=== PATIENT | male | born 1950 | race Caucasian/White ===

== ENCOUNTER 2019-07-25 18:01 | Inpatient (IN) | payer MEDICARE ==
[~2019-07-25] VITALS: Ht 177.8 cm; Wt 198.0 kg
--- NOTE | 2019-07-25 21:40 | NUR ---
PT ARRIVED TO UNIT. TRANSFERRED TO ICU BED. HOOKED UP TO MONITOR. VSS. WILL CONTINUE TO MONITOR
[2019-07-25 22:00] VITALS: BP 163/87
[2019-07-25] MEDS ORDERED: TOPROL XL25 MG PO (22:22)
[2019-07-25] MEDS ORDERED: ZOCOR20 MG PO (22:28)
[2019-07-25] MEDS ORDERED: TRUSOPT 2 % OPT10 ML OP (22:30)
[2019-07-25] MEDS ORDERED: LOSARTAN/HCT TAB 100 PO (22:36)
[2019-07-25] MEDS ORDERED: XALATAN 0.0052.5 ML EACH EYE (22:39)
[2019-07-25] MEDS ORDERED: BETAGAN 0.5% OPH5 ML EACH EYE (22:41)
[2019-07-25] MEDS ORDERED: COMBIGAN OPHT DR5 ML EACH EYE (22:42)
[2019-07-25 23:00] VITALS: BP 145/82
--- NOTE | 2019-07-25 23:00 | NUR ---
PT RESTING IN BED. ADMISSION ASSESSMENT IN PROGRESS. VSS. RECEIVING INFORMATION FROM PT SPOUSE. WILL CONTINUE TO MONITOR
[2019-07-25 23:55] VITALS: BP 168/85; BMI 62.9
[2019-07-26] VITALS (25 sets, daily range): BP systolic 116–188; BP diastolic 48–111; Ht 177.8 cm; Wt 198.0 kg
--- NOTE | 2019-07-26 01:00 | NUR ---
PT RESTING IN BED. NO SIGNS OF DISTRESS NOTED AT THIS TIME. VSS. WILL CONTINUE TO MONITOR
[2019-07-26 02:52] LABS: APPEARANCE CLEAR (CLEAR); BILIRUBIN NEGATIVE (NEGATIVE); COLOR YELLOW (YELLOW); GLUCOSE NEGATIVE (NEGATIVE); KETONE NEGATIVE (NEGATIVE); NITRITE NEGATIVE (NEGATIVE); PROTEIN 1+ mg/dL (NEGATIVE); SPECIFIC GRAVITY 1.015 (1.005-1.020)
[2019-07-26 02:57] LABS: BACTERIA NONE SEEN /hpf (NEGATIVE); EPITHELIAL CELLS 0-5 /hpf (0-5); WHITE CELLS - URINE 0-5 /hpf (NEGATIVE)
--- NOTE | 2019-07-26 03:00 | NUR ---
PT RESTING IN BED. VSS. REASSESSMENT COMPLETED. NO SIGNS OF DISTRESS NOTED. WILL CONTINUE TO MONITOR
[2019-07-26 04:17] LABS: BASOPHILS 0.1 % (0-2); HEMATOCRIT 49.7 % (42.0-54.0); HEMOGLOBIN 16.7 g/dL (13.5-17.5); IMMATURE GRANULOCYTES 0.5 % (0-5); MCH 31.5 pg (26.0-34.0); MCHC 33.6 g/dL (31.0-37.0); MCV 93.8 fL (80.0-100.0); MEAN PLATELET VOLUME 12.4 fL (7.4-10.4); MONOCYTES 12.3 % (2-11); NEUTROPHILS 50.1 % (40-80); PLATELET COUNT 127 10x3/uL (130-400); RDW 15.8 % (11.5-14.5); WBC 15.3 10x3/uL (4.8-10.8)
[2019-07-26 04:42] LABS: APTT 27.3 SECONDS (22.8-39.4); INR 1.08 (0.85-1.17); PROTIME 13.5 SECONDS (11.6-15.0)
--- NOTE | 2019-07-26 05:00 | NUR ---
PT RESTING IN BED. CHG BATH GIVEN. PT TOLERATED WELL. VSS. WILL CONTINUE TO MONITOR
[2019-07-26 05:19] LABS: CALC OSMOLALITY 270 mosm/kg (275-300); CHLORIDE - SERUM 90 mmol/L (98-107); CREATININE - SERUM 0.8 mg/dL (0.6-1.3); GLUCOSE 118 mg/dL (74-106); PHOSPHOROUS 5.3 mg/dL (2.5-4.9); POTASSIUM - SERUM 3.5 mmol/L (3.5-5.1); SODIUM 133 mmol/L (136-145); UREA NITROGEN 25 mg/dL (7-18); eGFR NON AFRICAN AMERICAN > 90 mL/min (90-120)
[2019-07-26 05:20] LABS: ALBUMIN 2.6 g/dL (3.4-5.0); ALKALINE PHOSPHATASE 78 U/L (46-116); ALT (SGPT) 18 U/L (10-68); BILIRUBIN - TOTAL 0.83 mg/dL (0.2-1.3); CALCIUM 7.8 mg/dL (8.5-10.1); PRO BNP 318 pg/mL (0-125); PROTEIN - SERUM 5.5 g/dL (6.4-8.2)
--- NOTE | 2019-07-26 07:15 | NUR ---
REPORT RECEIVED. ASSESSMENT COMPLETE PER FLOW SHEET. VSS NO NEW CHANGES WILL CONTINUE TO MONITOR
--- NOTE | 2019-07-26 13:21 | NUR ---
BARIACTRIC BED ORDERED AND RECEIVED. 07/26/19
[2019-07-26 14:37] LABS: EOS BF 18 %; MACROPHAGES BF 7 %; NEUT - BF 67 %
[2019-07-26 14:39] LABS: EOS BF 18 %; MACROPHAGES BF 9 %; NEUT - BF 66 %
--- NOTE | 2019-07-26 15:00 | NUR ---
REASSESSMENT COMPLETE PER FLOW SHEET. VSS. NO NEW CHANGES WILL CONTINUE TO MONITOR
[2019-07-26 15:01] LABS: CKMB 2.2 U/L (0.0-3.6); CREATINE KINASE 268 UL (21-232)
[2019-07-26 15:04] LABS: TROPONIN-I < 0.017 ng/mL (0.000-0.060)
[2019-07-26 17:23] LABS: CKMB 2.3 U/L (0.0-3.6); CREATINE KINASE 235 UL (21-232); TROPONIN-I 0.023 ng/mL (0.000-0.060)
--- NOTE | 2019-07-26 19:00 | NUR ---
SHIFT ASSESSMENT COMPLETE. PT IS SEDATED ON VENT. ETT SECURED. NGT R NARE, CLAMPED. ETT SIZE 8.0, 24 CM AT THE LIP. VENT SETTINGS: A/C RATE OF 18, TIDAL VOLUME 500, FIO2 60%, PEEP 5.0, O2 SAT 97-99%. COPIOUS AMOUNTS OF CLEAR SECRETIONS SUCTIONED VIA INLINE AND ORAL. CRACKLES HEARD BILAT THROUGHOUT ALL LOBES. S1S2 AUDIBLE, NSR SHOWING ON MONITOR. R UPPER ARM PICC INFUSING PROPOFOL @ 45 MCG/KG/MIN AND NS @ KVO+ABX. RADIAL AND PEDAL PULSES PALP. ABD LARGE, BS HYPOACTIVE X4. TREVIÑO CATH INTACT DRAINING SERENA URINE. BILAT LOWER EXT HAVE DISCOLORATION, SWELLING, DRY/CRACKING SKIN. PEDAL PULSES WEAK. RADIAL PULSES PALP. HE IS UNABLE TO FOLLOW COMMANDS, BUT HE DOES LOCALIZE PAIN. ORAL CARE PROVIDED VIA RT. NO FURTHER FINDINGS AT THIS TIME. SEE FLOWSHEET FOR FURTHER DETAILS. WILL CONT WITH POC.
--- NOTE | 2019-07-26 21:00 | NUR ---
DAUGHTER AT BEDSIDE. ETT HAS CUFF LEAK. RIKI, RT AT BEDSIDE. CUFF LEAK FIXED, O2 SAT WNL. ALL QUESTIONS/CONCERNS ANSWERED. NO FURTHER NEEDS AT THIS TIME. WILL CONT TO MONITOR CLOSELY.
--- NOTE | 2019-07-26 23:00 | NUR ---
REASSESSMENT COMPLETE. UA COLLECTED AND SENT TO LAB. REPOSITIONED FOR COMFORT. ORAL CARE PROVIDED. NO CHANGES FROM PREVIOUS ASSESSMENT. SEE FLOWSHEET FOR FURTHER DETAILS. VSS. WILL CONT TO MONITOR.
[2019-07-26 23:06] LABS: CKMB 1.4 U/L (0.0-3.6); CREATINE KINASE 203 UL (21-232); TROPONIN-I 0.019 ng/mL (0.000-0.060)
[2019-07-27] VITALS (24 sets, daily range): BP systolic 102–153; BP diastolic 43–77
--- NOTE | 2019-07-27 | NUR ---
TREVIÑO CARE PROVIDED PER PROTOCOL.
--- NOTE | 2019-07-27 01:00 | NUR ---
REPOSITIONED FOR COMFORT. VSS. ORAL CARE PROVIDED. NO ACUTE CHANGES IN PT CONDITION.
--- NOTE | 2019-07-27 03:00 | NUR ---
REASSESSMENT COMPLETE. NO CHANGES FROM PREVIOUS ASSESSMENT. SEE FLOWSHEET FOR FURTHER DETAILS. VSS. WILL CONT CLOSE MONITORING IN ICU.
--- NOTE | 2019-07-27 05:00 | NUR ---
CHG BED BATH AND LINEN CHANGE PROVIDED. PT TOLERATED WELL. VSS. ORAL CARE PROVIDED. TREVIÑO CARE PROVIDED.
--- NOTE | 2019-07-27 05:47 | NUR ---
PT'S HR DECREASED TO 54 BPM, SINUS IMELDA, BP WNL. SEDATION VACATION STARTED. WILL CONT CLOSE MONITORING.
--- NOTE | 2019-07-27 07:00 | NUR ---
REPORT RECEIVED. ASSESSMENT COMPLETE PER FLOW SHEET. VSS. ORAL ENDOTRACH CARE ADM. WILL CONTINUE TO MONITOR
[2019-07-27 07:14] LABS: BASOPHILS 0.2 % (0-2); EOSINOPHILS 1.6 % (0-7); HEMATOCRIT 48.7 % (42.0-54.0); HEMOGLOBIN 15.8 g/dL (13.5-17.5); IMMATURE GRANULOCYTES 0.3 % (0-5); MCH 30.9 pg (26.0-34.0); MCHC 32.4 g/dL (31.0-37.0); MCV 95.3 fL (80.0-100.0); MEAN PLATELET VOLUME 12.2 fL (7.4-10.4); MONOCYTES 10.5 % (2-11); NEUTROPHILS 48.4 % (40-80); PLATELET COUNT 135 10x3/uL (130-400); RBC 5.11 10x6/uL (4.20-6.10); RDW 15.7 % (11.5-14.5)
[2019-07-27 08:10] LABS: CALC OSMOLALITY 283 mosm/kg (275-300); CARBON DIOXIDE 34.9 mmol/L (21.0-32.0); CHLORIDE - SERUM 94 mmol/L (98-107); CREATININE - SERUM 0.9 mg/dL (0.6-1.3); GLUCOSE 158 mg/dL (74-106); SODIUM 138 mmol/L (136-145); UREA NITROGEN 26 mg/dL (7-18); eGFR NON AFRICAN AMERICAN 89 mL/min (90-120)
[2019-07-27 08:11] LABS: ALBUMIN 2.4 g/dL (3.4-5.0); ALKALINE PHOSPHATASE 79 U/L (46-116); ALT (SGPT) 16 U/L (10-68); BILIRUBIN - TOTAL 0.92 mg/dL (0.2-1.3); CALCIUM 7.6 mg/dL (8.5-10.1); PROTEIN - SERUM 5.5 g/dL (6.4-8.2)
[2019-07-27 08:12] LABS: POTASSIUM - SERUM 2.9 mmol/L (3.5-5.1)
[2019-07-27 08:13] LABS: MAGNESIUM - SERUM 2.2 mg/dL (1.8-2.4)
--- NOTE | 2019-07-27 09:10 | NUR ---
DR LUJAN AT BEDSIDE. CPAP TRAIL ADM.
--- NOTE | 2019-07-27 11:00 | NUR ---
REASSESSMENT COMPLETE PER FLOW SHEET. VSS. FAMILY AT BEDSIDE. DENIES NEEDS WILL CONTINUE TOMONITOR
--- NOTE | 2019-07-27 13:34 | NUR ---
FAMILY AT BEDSIDE. ORAL CARE ADM. DENIES NEEDS WILL CONTINUE TOMONITOR
--- NOTE | 2019-07-27 15:31 | NUR ---
RE-ASSESSMENT COMPLETED PER FLOW FLOW. PATIENT RESTING COMFORTABLY. WILL CONT TO MONITOR
[2019-07-27 16:08] LABS: ACID FAST SMEAR Negative (()); AFB SPECIMEN PROCESSING Concentration (())
[2019-07-27 16:08] LABS: ACID FAST SMEAR Negative (()); AFB SPECIMEN PROCESSING Concentration (())
--- NOTE | 2019-07-27 19:00 | NUR ---
SHIFT ASSESSMENT COMPLETE. PT IS ABLE TO FOLLOW COMMANDS, SPEECH GARBLED AND HE IS LETHARGIC. HE STATES THAT HE KNOWS WHY HE IS HERE, BUT IS UNABLE TO EXPLAIN THE SITUATION. REORIENTED AND EXPLAINED TO HIM WHERE HE IS AND WHY HE IS HERE. PERRLA, 3 MM, BRISK REACTIO TO LIGHT. WEAK BUT EQUAL HAND MILL SET UP AND FOOT PUMPS. RR SHALLOW, BIPAP ON, 12/6, FIO2 60%. CRACKLES HEARD BILAT THROUGHOUT ALL LOBES. S1S2 AUDIBLE, HR 88 NSR SHOWING ON MONITOR. R UPPER ARM PICC INFUSING NS @ KVO+ABX. L UPPER ARM PIV S/L. ABD LARGE AND SOFT, BS HYPOACTIVE X4. TREVIÑO CATH INTACT DRAINING SERENA URINE. +1 PITTING EDEMA IN UPPER AND LOWER EXT. SKIN IS SCALY, B/L LOWER EXT HAVE DISCOLORATION, SCABS/SORES. ORAL CARE PROVIDED, O2 SAT DECREASED TO 85%. BIPAP BACK ON, O2 SAT 94-97%. RADIAL AND PEDAL PULSES PALP. NO FURTHER FINDINGS AT THIS TIME. WILL CONT TO MONITOR CLOSELY IN ICU.
--- NOTE | 2019-07-27 19:02 | MORECARE ---
CASE MANAGEMENT DISCHARGE SUMMARY PATIENT: DALLAS MACIEL UNIT: [id number] ADM DATE: 07/25/19 AGE: 68 : 51 SEX: M ROOM/BED: D.2307 AUTHOR: CED PASCUAL PHYSICIAN: REFERRING PHYSICIAN: VIOLETA CARVALHO MD DATE OF SERVICE: 07/27/19 Discharge Plan Patient Name: DALLAS MACIEL [facility] [facility] 1950 Planned Disposition: Home Anticipated Discharge Date: Discharge Date: Expected LOS: Initial Reviewer: [email or web address] Initial Review Date: 07/27/2019 Generated: 07/27/19 8:02 pm Patient Name: DALLAS MACIEL Page [phone] at 1902 All edits/amendments must be made on the electronic document DICTATION DATE: 07/27/191901 REGULATORY PROCESS MANAGER: GARRETT 07/27/191901 RPT#: [id number] DC DATE: STATUS: ADM IN [facility] [address] [place] [address] END OF REPORT
--- NOTE | 2019-07-27 19:10 | MORECARE ---
CASE MANAGEMENT DISCHARGE SUMMARY PATIENT: DALLAS MACIEL UNIT: [id number] ADM DATE: 07/25/19 AGE: 68 : 51 SEX: M ROOM/BED: D.2307 AUTHOR: CED PASCUAL PHYSICIAN: REFERRING PHYSICIAN: VIOLETA CARVALHO MD DATE OF SERVICE: 07/27/19 Discharge Plan Patient Name: DALLAS MACIEL [facility] [facility] 1950 Planned Disposition: Home Anticipated Discharge Date: Discharge Date: Expected LOS: Initial Reviewer: [email or web address] Initial Review Date: 07/27/2019 Generated: 07/27/19 8:10 pm DCPIA - Discharge Planning Initial Assessment Updated by [id number]: Diane Wilson on 07/27/19 7:05 pm * How many steps to enter\exit or inside your home? ramp * PCP Dexter John * [facility] * Preadmission Environment Home with Family * ADLs Partial Dependent * Partial ADLs (Assistance needed) Ambulation Bathing Dressing Eating Medication Management Toileting Transfers * Other Equipment HOME 02 - [facility] HOME PATIENT ELECTRIC W/C, SHOWER CHAIR -(CAN'T FIT IN SHOWER) * List name and contact numbers for known caregivers / representatives who currently or will assist patient after discharge: DARIUSZ MACIEL- SPOUSE- [phone] * Verbal permission to speak to the caregivers and representatives has been obtained from the patient. N/A * Community resources currently utilized None * Additional services required to return to the preadmission environment? No * Can the patient safely return to the preadmission environment? Yes * Has this patient been hospitalized within the prior 30 days at any hospital? No Last DP export: 07/27/19 6:02 Patient Name: DALLAS MACIEL Page [phone] at 1910 All edits/amendments must be made on the electronic document DICTATION DATE: 07/27/191909 SUPERVISOR CONCRETE BLOCK PLANT: GARRETT 07/27/191909 RPT#: [id number] DC DATE: STATUS: ADM IN [facility] [address] [place] [address] END OF REPORT
--- NOTE | 2019-07-27 19:17 | MORECARE ---
CASE MANAGEMENT DISCHARGE SUMMARY PATIENT: DALLAS MACIEL UNIT: [id number] ADM DATE: 07/25/19 AGE: 68 : 51 SEX: M ROOM/BED: D.2307 AUTHOR: ANKUR,DOC PHYSICIAN: REFERRING PHYSICIAN: VIOLETA CARVALHO MD DATE OF SERVICE: 07/27/19 Discharge Plan Patient Name: DALLAS MACIEL Facility: [facility]:[place] : 1950 Planned Disposition: Home Anticipated Discharge Date: Discharge Date: Expected LOS: Initial Reviewer: [email or web address] Initial Review Date: 07/27/2019 Generated: 07/27/19 8:16 pm Comments DCP- Discharge Planning Updated by [id number]: Diane Wilson on 07/27/19 6:[address] Patient Name: DALLAS MACIEL Admission Status: Elective Accout number: [id number] Admission Date: 07-25-2019 : 1950 Admission Diagnosis: Attending: VIOLETA CARVALHO Current LOS: 2 Anticipated DC Date: Planned Disposition: Home Primary Insurance: [facility] [employer]IONS Discharge Planning Comments: CM met with patient and Dariusz at bedside after explaining CM role and obtaining verbal consent. Patient recently extubated today would only answer questions by nodding. Patient lives at home with his Dariusz where he is partially dependent with his care and plans to return there upon discharge. Patient feels this would be a safe discharge. CM discussed availability / needs of home health and medical equipment. Dariusz states that patient has Home 02 with [facility]. Dariusz did mention that it is getting harder to take care of him at home. CM spoke to her regarding physical therapy evaluation and the possibility of rehab v/s HH. Patient denies any discharge needs at this time. CM will continue to follow and assist as needed with discharge planning / needs. Drive In Theater Attendant: Diane Wilson DCPIA - Discharge Planning Initial Assessment Updated by [id number]: Diane Wilson on 07/27/19 7:05 pm * How many steps to enter\exit or inside your home? ramp * PCP Dexter John * [facility] * Preadmission Environment Home with Family * ADLs Partial Dependent * Partial ADLs (Assistance needed) Ambulation Bathing Dressing Eating Medication Management Toileting Transfers * Other Equipment HOME 02 - [facility] PAT[facility] ELECTRIC W/C, SHOWER CHAIR -(CAN'T FIT IN SHOWER) * List name and contact numbers for known caregivers / representatives who currently or will assist patient after discharge: DARIUSZ MACIEL- SPOUSE- [phone] * Verbal permission to speak to the caregivers and representatives has been obtained from the patient. N/A * Community resources currently utilized None * Additional services required to return to the preadmission environment? No * Can the patient safely return to the preadmission environment? Yes * Has this patient been hospitalized within the prior 30 days at any hospital? No Last DP export: 07/27/19 6:10 Patient Name: DALLAS MACIEL Page [phone] at 1917 All edits/amendments must be made on the electronic document DICTATION DATE: 07/27/191915 RESOURCE CONSERVATIONIST: GARRETT 07/27/191915 RPT#: [id number] DC DATE: STATUS: ADM IN [facility] [address] [place] [address] END OF REPORT
--- NOTE | 2019-07-27 20:18 | NUR ---
LABS REVIEWED, POTASSIUM 2.9 FROM AM LAB. NO RECHECK AFTER ELECTROLYTE PROTOCOL. WILL RECHECK AT 2030 TO ASSESS POTASSIUM VALUE PER PROTOCOL.
--- NOTE | 2019-07-27 21:00 | NUR ---
FAMILY AT BEDSIDE. PLACED PT ON HIGH FLOW NC @ 12 L/MIN SO HE COULD DISCUSS HIS WISHES WITH HIS FAMILY. O2 SAT STAYING WNL. ALL QUESTIONS ANSWERED. WILL CONT TO MONITOR.
--- NOTE | 2019-07-27 23:00 | NUR ---
REASSESSMENT COMPLETE. ORAL CARE PROVIDED. VSS. BIPAP ON. REPOSITIONED FOR COMFORT. NO NEW FINDINGS AT THIS TIME. SEE FLOWSHEET FOR FURTHER DETAILS. WILL CONT TO MONITOR CLOSELY.
[2019-07-28] VITALS (15 sets, daily range): BP systolic 93–141; BP diastolic 57–91
--- NOTE | 2019-07-28 01:00 | NUR ---
REMOVED BIPAP, ON HFNC @ 10L/MIN. A&O X4. HE STATED THAT HE DID NOT WANT TO BE INTUBATED IF HE WERE TO CODE. HE STATED, "I DON'T WANT TO LIVE LIKE THIS." ENCOURAGED HIM TO EXPRESS HIS WISHES TO HIS FAMILY AND THAT I WOULD REPORT THIS INFORMATION TO AM NURSING STAFF/INTERDISCIPLINARY TEAM. ORAL CARE PROVIDED. CALL LIGHT IN REACH, RESPOSITIONED FOR COMFORT. NO FURTHER NEEDS AT THIS TIME. WILL CONT WITH POC.
--- NOTE | 2019-07-28 03:00 | NUR ---
CHG BED BATH AND COMPLETE LINEN CHANGE PROVIDED. PT TOLERATED WELL. REMOVED BIPAP, PLACED HIGH FLOW NC ON @ 7L/MIN. O2 SAT 94-98%. YAUNKER IN HAND. CALL LIGHT IN REACH. ORAL CARE PROVIDED. REASSESSMENT COMPLETE. NO ACUTE CHANGES. WILL CONT WITH POC. SEE FLOWSHEET FOR FURTHER DETAILS.
--- NOTE | 2019-07-28 05:00 | NUR ---
AT BEDSIDE. PT IS ON HFNC @ 5L/MIN. O2 SAT >94%, RR EVEN AND UNLABORED. REPOSITIONED FOR COMFORT. ORAL CARE PROVIDED. NO FURTHER NEEDS AT THIS TIME. WILL CONT WITH POC.
[2019-07-28 05:09] LABS: BASOPHILS 0.3 % (0-2); EOSINOPHILS 1.5 % (0-7); HEMATOCRIT 51.9 % (42.0-54.0); HEMOGLOBIN 16.2 g/dL (13.5-17.5); IMMATURE GRANULOCYTES 0.3 % (0-5); LYMPHOCYTES 41.1 % (15-50); MCH 30.3 pg (26.0-34.0); MCHC 31.2 g/dL (31.0-37.0); MEAN PLATELET VOLUME 11.6 fL (7.4-10.4); MONOCYTES 10.7 % (2-11); NEUTROPHILS 46.1 % (40-80); PLATELET COUNT 147 10x3/uL (130-400); RBC 5.35 10x6/uL (4.20-6.10); RDW 15.5 % (11.5-14.5); WBC 14.3 10x3/uL (4.8-10.8)
[2019-07-28 05:44] LABS: ALBUMIN 2.5 g/dL (3.4-5.0); ALKALINE PHOSPHATASE 87 U/L (46-116); BILIRUBIN - TOTAL 2.24 mg/dL (0.2-1.3); CALC OSMOLALITY 293 mosm/kg (275-300); CALCIUM 9.1 mg/dL (8.5-10.1); CARBON DIOXIDE 39.4 mmol/L (21.0-32.0); CHLORIDE - SERUM 101 mmol/L (98-107); GLUCOSE 112 mg/dL (74-106); MAGNESIUM - SERUM 2.3 mg/dL (1.8-2.4); PHOSPHOROUS 3.4 mg/dL (2.5-4.9); SODIUM 145 mmol/L (136-145); UREA NITROGEN 25 mg/dL (7-18); eGFR NON AFRICAN AMERICAN 79 mL/min (90-120)
[2019-07-28 05:45] LABS: ALT (SGPT) 22 U/L (10-68); POTASSIUM - SERUM 2.9 mmol/L (3.5-5.1); PROTEIN - SERUM 7.2 g/dL (6.4-8.2)
--- NOTE | 2019-07-28 06:25 | NUR ---
PLACED PT BACK ON BIPAP. NO FURTHER NEEDS AT THIS TIME. VSS. WILL CONT WITH POC.
--- NOTE | 2019-07-28 07:15 | NUR ---
REPORT RECEIVED. PT ON BIPAP. HAS A TREVIÑO. HAS A RIGHT PICC. LOW POTASSIUM THIS MORNING. NOW BEING REPLACED PER ELECTROLYE PROTOCOL. PT ALERT. SLOW TO RESPOND. HEAD TO TOE ASSESSMENT COMPLETED. VSS. WILL CONTINUE TO MONITOR.
--- NOTE | 2019-07-28 08:23 | NUR ---
PT REPOSITIONED IN BED WITH HELP OF BED WELL. TURNED TO LEFT SIDE. AT BEDSIDE. ON O2 VIA HIGH FLOW CANNULA AT 6L. 94%. WILL CONTINUE TO MONITOR.
--- NOTE | 2019-07-28 09:31 | NUR ---
Nutrition follow-up: Pt extubated 07/27 Remains NPO until clear by speech evaluation - ordered for today Labs reviewed Wt: 436# Pt still with breathing difficulty RDN following.
--- NOTE | 2019-07-28 09:40 | NUR ---
DR LUJAN ROUNDED. WANTS PT'S HOB AT 45 DEGREES AND FOR PT TO START USING IS. TAKEN TO PT AT THIS TIME AND INSTRUCTED ON HOW TO USE. ENCOURAGED TO USE DURING EVERY COMMERCIAL WHILE AWAKE. VERBALIZED UNDERSTANDING. DEMONSTRATED PROPER USE. VSS. WILL CONTINUE TO MONITOR.
--- NOTE | 2019-07-28 11:30 | NUR ---
PT REPOSITIONED IN BED. LUNCH DELIVERED. PT WANTED TO COME BACK AND ASSIST HIM WITH HIS LUNCH. WILL CONTINUE TO MONITOR.
--- NOTE | 2019-07-28 13:45 | NUR ---
PT RESTING QUIETLY. REPOSITIONED IN BED PER DELMI BED/AIR MATTRESS. VSS. WILL CONTINUE TO MONITOR.
--- NOTE | 2019-07-28 14:50 | NUR ---
REPORT CALLED TO JUN ON [id number]. PT GOING TO ROOM 2201.
--- NOTE | 2019-07-28 19:00 | NUR ---
BEDSIDE REPORT RECEIVED AND CARE OF PT ASSUMED. PT LYING IN SEMI SILVER'S POSITION ON [facility] BED. FAMILY MEMBERS ARE AT BEDSIDE. RIGHT PICC LINE PATENT WITH NS INFUSING AT KVO. O2 IN USE 6L HI FLOW NASAL CANNULA. WILL MONITOR FOR NEEDS.
--- NOTE | 2019-07-28 20:56 | NUR ---
HS MEDICATIONS GIVEN. SPACED EYE DROPS OUT 5 MINS APART. GAVE TYLENOL PO FOR C/O LEG PAIN.
--- NOTE | 2019-07-28 23:57 | NUR ---
CALLED RT PER FAMILY REQUEST PT THINKS BIPAP SETTINGS ARE "TOO HIGH". RT TO COME AND SPEAK TO PT TO EXPLAIN THAT SETTINGS WILL NOT BE CHANGED.
[2019-07-29 01:00] VITALS: BP 136/54
[2019-07-29 05:00] VITALS: BP 145/60
[2019-07-29 05:19] LABS: BASOPHILS 0.2 % (0-2); EOSINOPHILS 1.2 % (0-7); HEMATOCRIT 49.8 % (42.0-54.0); HEMOGLOBIN 15.4 g/dL (13.5-17.5); IMMATURE GRANULOCYTES 0.3 % (0-5); LYMPHOCYTES 37.8 % (15-50); MCH 30.3 pg (26.0-34.0); MCHC 30.9 g/dL (31.0-37.0); MCV 97.8 fL (80.0-100.0); MONOCYTES 10.5 % (2-11); PLATELET COUNT 160 10x3/uL (130-400); RBC 5.09 10x6/uL (4.20-6.10); RDW 15.1 % (11.5-14.5); WBC 15.8 10x3/uL (4.8-10.8)
[2019-07-29 05:42] LABS: ALBUMIN 2.3 g/dL (3.4-5.0); ALKALINE PHOSPHATASE 84 U/L (46-116); CALC OSMOLALITY 286 mosm/kg (275-300); CALCIUM 8.9 mg/dL (8.5-10.1); CHLORIDE - SERUM 101 mmol/L (98-107); CREATININE - SERUM 0.9 mg/dL (0.6-1.3); GLUCOSE 120 mg/dL (74-106); MAGNESIUM - SERUM 2.2 mg/dL (1.8-2.4); PHOSPHOROUS 3.7 mg/dL (2.5-4.9); PROTEIN - SERUM 6.9 g/dL (6.4-8.2); SODIUM 141 mmol/L (136-145); UREA NITROGEN 27 mg/dL (7-18); eGFR NON AFRICAN AMERICAN 89 mL/min (90-120)
[2019-07-29 05:57] LABS: ALT (SGPT) 32 U/L (10-68); CARBON DIOXIDE 42.8 mmol/L (21.0-32.0)
--- NOTE | 2019-07-29 07:30 | NUR ---
PT RESTING IN BED WITH BIPAP IN PLACE. PT VOICES WISHES TO REMOVE BIPAP AT THIS TIME. EDUCATED PT REGARDING NECESITTY OF BIPAP, PT IS RESISTIVE BUT DOES VOICE WILLINGNESS TO LEAVE BIPAP IN PLACE FOR THE TIME. PICC LINE INTACT TO RIGHT UPPER ARM WITH NS @ KVO INFUSING VIA PUMP. SITE WITHOUT REDNESS OR EDEMA. DENIES PAIN AT THIS TIME. FAMILY AT BEDSIDE. DENIES FURTHER NEEDS AT THIS TIME. CL WITHIN REACH. ENCOURAGED TO CALL WITH NEEDS. CONTINUE POC
[2019-07-29 08:45] VITALS: BP 133/68
[2019-07-29 12:27] LABS: APPEARANCE HAZY (CLEAR); BILIRUBIN NEGATIVE (NEGATIVE); COLOR DK YELLOW (YELLOW); GLUCOSE NEGATIVE (NEGATIVE); KETONE NEGATIVE (NEGATIVE); NITRITE NEGATIVE (NEGATIVE); PROTEIN 1+ mg/dL (NEGATIVE)
[2019-07-29 12:28] LABS: BACTERIA FEW /hpf (NEGATIVE); EPITHELIAL CELLS 0-5 /hpf (0-5); WHITE CELLS - URINE 0-5 /hpf (NEGATIVE)
[2019-07-29 12:29] LABS: MUCUS <1+ /lpf (NONE SEEN)
[2019-07-29 12:43] VITALS: BP 133/70
[2019-07-29 16:45] VITALS: BP 147/75
--- NOTE | 2019-07-29 19:00 | NUR ---
BEDSIDE REPORT RECEIVED AND CARE OF PT ASSUMED. PT LYING IN LOW SILVER'S POSITION WITH BIPAP IN PLACE. FAMILY MEMBERS ARE AT BEDSIDE.
[2019-07-29 20:01] VITALS: BP 134/68
--- NOTE | 2019-07-29 20:32 | NUR ---
HS MEDICATIONS GIVEN. WILL CONTINUE TO MONITOR FOR NEEDS.
--- NOTE | 2019-07-29 22:40 | NUR ---
PT TOOK OFF O2...O2 SATS IN THE 60'S. REPLACED O2 AND NOTIFIED RT. RT HERE AND PLACED BIPAP BACK ON PT. SPO2 95% AT THIS TIME.
--- NOTE | 2019-07-29 22:51 | NUR ---
ASSISTED PT TO USE BEDPAN...3 PERSON ASSIST, TO HAVE LOOSE BM. POSITIONED FOR COMFORT.
[2019-07-30] VITALS: BP 146/47
[2019-07-30 04:00] VITALS: BP 175/69
[2019-07-30 05:32] LABS: BASOPHILS 0.4 % (0-2); EOSINOPHILS 1.8 % (0-7); HEMATOCRIT 49.7 % (42.0-54.0); HEMOGLOBIN 15.5 g/dL (13.5-17.5); IMMATURE GRANULOCYTES 0.5 % (0-5); LYMPHOCYTES 38.6 % (15-50); MCH 30.3 pg (26.0-34.0); MCHC 31.2 g/dL (31.0-37.0); MCV 97.1 fL (80.0-100.0); MEAN PLATELET VOLUME 11.1 fL (7.4-10.4); NEUTROPHILS 49.7 % (40-80); PLATELET COUNT 188 10x3/uL (130-400); RBC 5.12 10x6/uL (4.20-6.10); RDW 14.9 % (11.5-14.5); WBC 15.7 10x3/uL (4.8-10.8)
[2019-07-30 05:58] LABS: ALBUMIN 2.3 g/dL (3.4-5.0); ALKALINE PHOSPHATASE 85 U/L (46-116); BILIRUBIN - TOTAL 3.04 mg/dL (0.2-1.3); CALC OSMOLALITY 289 mosm/kg (275-300); CHLORIDE - SERUM 100 mmol/L (98-107); GLUCOSE 113 mg/dL (74-106); MAGNESIUM - SERUM 2.2 mg/dL (1.8-2.4); PHOSPHOROUS 3.7 mg/dL (2.5-4.9); SODIUM 143 mmol/L (136-145); UREA NITROGEN 25 mg/dL (7-18); eGFR NON AFRICAN AMERICAN 79 mL/min (90-120)
[2019-07-30 06:10] LABS: POTASSIUM - SERUM 3.5 mmol/L (3.5-5.1)
[2019-07-30 06:13] LABS: ALT (SGPT) 45 U/L (10-68); CARBON DIOXIDE 41.2 mmol/L (21.0-32.0)
[2019-07-30 07:59] VITALS: BP 141/56
--- NOTE | 2019-07-30 12:07 | NUR ---
OT NOTE: PT DOING MUCH BETTER TODAY. ALERT AND ORIENTED. EXPLAINED WHAT WE WOULD BE DOING IN THERAPY AND PT AGREEABLE. BED MOB WITH MOD ASSIST X 2; ABLE TO SIT ON EOB WITH MIN ASSIST/SBA. UE/LE AROM EXS. LIMITED SHOULDER MOVEMENT DUE WEAKNESS. MAX ASSIST TO CARLOS SOCKS; MOD ASSIST TO CARLOS GOWN. PERFORMED SIT TO STAND X 3 TRIALS WITH MOD ASSIST AND USE OF RW FOR UE SUPPORT. PT UNABLE TO STAND ALL THE WAY UP DUE TO UE WEAKNESS. UNABLE TO AMBULATE AT THIS TIME; MAX ASSIST FOR SIT TO SUPINE; MAX ASSIST TO REPOSITION. DISCUSSED REHAB OPTION WITH PT AND ; PT IS VERY DECONDITIONED AND WOULD BENEFIT GREATLY FROM IP REHAB PRIOR TO DC HOME. WILL BE UNABLE TO CARE FOR HIM AT THIS TIME. OTIS CH, OTR/L
[2019-07-30 12:42] VITALS: BP 135/80
[2019-07-30 13:09] LABS: FUNGUS STAIN Final report (())
[2019-07-30 13:09] LABS: FUNGUS STAIN Final report (())
[2019-07-30 17:32] VITALS: BP 145/60
--- NOTE | 2019-07-30 19:00 | NUR ---
BEDSIDE REPORT RECEIVED AND CARE OF PT ASSUMED. PT LYING IN SUPINE POSITION ON A DELMI MAX AIRBED, WITH BIPAP IN PLACE. RIGHT PICC LINE PATENT WITH NS INFUSING AT KVO. FAMILY MEMBERS ARE AT BEDSIDE. WILL MONITOR FOR NEEDS.
[2019-07-30 20:00] VITALS: BP 171/72
--- NOTE | 2019-07-30 20:07 | NUR ---
HS MEDICATIONS GIVEN. WILL CONTINUE TO MONITOR FOR NEEDS.
--- NOTE | 2019-07-30 20:20 | NUR ---
GAVE ZOFRAN IVP PER REQUEST FOR NAUSEA.
[2019-07-31] VITALS: BP 141/60
[2019-07-31 04:00] VITALS: BP 127/61
[2019-07-31 05:56] LABS: BASOPHILS 0.4 % (0-2); EOSINOPHILS 2.1 % (0-7); HEMATOCRIT 50.6 % (42.0-54.0); HEMOGLOBIN 15.5 g/dL (13.5-17.5); IMMATURE GRANULOCYTES 0.3 % (0-5); LYMPHOCYTES 39.8 % (15-50); MCH 30.3 pg (26.0-34.0); MCHC 30.6 g/dL (31.0-37.0); MCV 98.8 fL (80.0-100.0); MEAN PLATELET VOLUME 10.9 fL (7.4-10.4); NEUTROPHILS 48.4 % (40-80); PLATELET COUNT 174 10x3/uL (130-400); RBC 5.12 10x6/uL (4.20-6.10); RDW 14.9 % (11.5-14.5); WBC 12.2 10x3/uL (4.8-10.8)
[2019-07-31 06:10] LABS: CALC OSMOLALITY 293 mosm/kg (275-300); CALCIUM 8.8 mg/dL (8.5-10.1); CHLORIDE - SERUM 101 mmol/L (98-107); CREATININE - SERUM 0.9 mg/dL (0.6-1.3); GLUCOSE 120 mg/dL (74-106); POTASSIUM - SERUM 3.4 mmol/L (3.5-5.1); SODIUM 145 mmol/L (136-145); UREA NITROGEN 23 mg/dL (7-18); eGFR NON AFRICAN AMERICAN 89 mL/min (90-120)
[2019-07-31 06:23] LABS: CARBON DIOXIDE 42.7 mmol/L (21.0-32.0)
--- NOTE | 2019-07-31 06:44 | NUR ---
POTASSIUM LEVEL 3.4 THIS AM REQUIRING COVERAGE WITH 20 MEQ POTASSIUM RIDER Q2HRS X2 DOSES. STARTED NOW.
[2019-07-31 07:49] VITALS: BP 132/52
[2019-07-31 09:35] LABS: ALBUMIN 2.3 g/dL (3.4-5.0); BILIRUBIN - DIRECT 1.55 mg/dL (0.00-0.30); BILIRUBIN - INDIRECT 0.83 mg/dL (0.00-1.00); BILIRUBIN - TOTAL 2.38 mg/dL (0.2-1.3); PROTEIN - SERUM 7.2 g/dL (6.4-8.2)
[2019-07-31 13:10] VITALS: BP 145/92
[2019-07-31 16:58] VITALS: BP 103/52
--- NOTE | 2019-07-31 19:00 | NUR ---
BEDSIDE REPORT RECEIVED AND CARE OF PT ASSUMED. PT LYING IN LOW SILVER'S POSITION ON [facility] BED. RIGHT PICC LINE PATENT WITH NS INFUSING AT KVO. TREVIÑO CATHETER DRAINING TO GRAVITY WITH YELLOW URINE IN COLLECTION BAG. BIPAP IN PLACE. FAMILY MEMBERS ARE AT BEDSIDE.
--- NOTE | 2019-07-31 20:41 | NUR ---
HS MEDICATIONS GIVEN. WILL CONTINUE TO MONITOR FOR NEEDS.
[2019-07-31 21:25] VITALS: BP 153/63
[2019-08-01 00:17] VITALS: BP 136/60
[2019-08-01 04:47] VITALS: BP 132/60
[2019-08-01 06:33] LABS: BASOPHILS 0.5 % (0-2); EOSINOPHILS 2.7 % (0-7); HEMATOCRIT 54.4 % (42.0-54.0); HEMOGLOBIN 16.4 g/dL (13.5-17.5); IMMATURE GRANULOCYTES 0.4 % (0-5); LYMPHOCYTES 38.5 % (15-50); MCH 29.9 pg (26.0-34.0); MCHC 30.1 g/dL (31.0-37.0); MCV 99.3 fL (80.0-100.0); MEAN PLATELET VOLUME 10.3 fL (7.4-10.4); MONOCYTES 8.6 % (2-11); NEUTROPHILS 49.3 % (40-80); PLATELET COUNT 173 10x3/uL (130-400); RBC 5.48 10x6/uL (4.20-6.10); RDW 14.7 % (11.5-14.5); WBC 11.3 10x3/uL (4.8-10.8)
[2019-08-01 06:53] LABS: ALBUMIN 2.4 g/dL (3.4-5.0); ALKALINE PHOSPHATASE 98 U/L (46-116); ALT (SGPT) 57 U/L (10-68); BILIRUBIN - TOTAL 1.65 mg/dL (0.2-1.3); CALC OSMOLALITY 291 mosm/kg (275-300); CHLORIDE - SERUM 101 mmol/L (98-107); GLUCOSE 112 mg/dL (74-106); PROTEIN - SERUM 7.2 g/dL (6.4-8.2); SODIUM 145 mmol/L (136-145); UREA NITROGEN 19 mg/dL (7-18); eGFR NON AFRICAN AMERICAN 79 mL/min (90-120)
[2019-08-01 06:57] LABS: POTASSIUM - SERUM 3.3 mmol/L (3.5-5.1)
[2019-08-01 06:58] LABS: CARBON DIOXIDE 44.9 mmol/L (21.0-32.0)
[2019-08-01 07:56] VITALS: BP 157/61
[2019-08-01 11:43] VITALS: BP 153/65
--- NOTE | 2019-08-01 14:36 | NUR ---
Nutrition follow-up: Pt with regular mecanical soft diet with thin liquids order. Pt with BIPAP in place and unable to eat much. Labs reviewed Wt: 436# Recommend starting nutrition support due to pt not meeting estimated energy needs at this time. RDN following.
[2019-08-01 16:38] VITALS: BP 156/75
--- NOTE | 2019-08-01 19:46 | NUR ---
LYING IN BED WITH BIPAP ON, AT BEDSIDE. CONCERNS ABOUT AMOUNT OF PT PATIENT IS RECIEVING, WILL COMMUNICATE WITH DAY SHIFT TO GET SCHEDULES STRAIGHTENED OUT. PICC TO RIGHT UPPER ARM IS PATENT, IV TO LEFT UPPER ARM IS PATENT TO FLUSH, BOTH ARE SALINE LOC AT THIS TIME. WILL NOTE ANY CHANGE.
[2019-08-01 22:13] VITALS: BP 101/546
[2019-08-02 01:21] VITALS: BP 150/60
--- NOTE | 2019-08-02 02:21 | NUR ---
I have reviewed this patient and I concur with the Shift Assessment completed by the Licensed Practical Nurse today this shift.
--- NOTE | 2019-08-02 05:40 | NUR ---
RESTED WELL THIS SHIFT. DOES HAVE CONCERNS ON BIPAP AND OPTIONS OF BIPAP MASKS. WOULD LIKE TO WORK WITH PHYSICAL THERAPY THIS SHIFT. WILL PASS ALONG TO APPROPRIATE CHANNELS. WILL NOTE ANY CHANGE.
[2019-08-02 08:09] LABS: BASOPHILS 0.6 % (0-2); HEMATOCRIT 50.6 % (42.0-54.0); HEMOGLOBIN 15.6 g/dL (13.5-17.5); IMMATURE GRANULOCYTES 0.4 % (0-5); LYMPHOCYTES 39.6 % (15-50); MCH 30.3 pg (26.0-34.0); MCHC 30.8 g/dL (31.0-37.0); MCV 98.3 fL (80.0-100.0); MEAN PLATELET VOLUME 10.9 fL (7.4-10.4); MONOCYTES 8.2 % (2-11); NEUTROPHILS 48.2 % (40-80); PLATELET COUNT 186 10x3/uL (130-400); RBC 5.15 10x6/uL (4.20-6.10); RDW 14.6 % (11.5-14.5); WBC 12.1 10x3/uL (4.8-10.8)
--- NOTE | 2019-08-02 08:15 | NUR ---
PATIENT RESTING ON RIGHT SIDE. CL IN REACH. IN ROOM. WCTM
[2019-08-02 08:23] LABS: CALC OSMOLALITY 288 mosm/kg (275-300); CALCIUM 9.1 mg/dL (8.5-10.1); CHLORIDE - SERUM 101 mmol/L (98-107); CREATININE - SERUM 0.9 mg/dL (0.6-1.3); GLUCOSE 106 mg/dL (74-106); MAGNESIUM - SERUM 2.1 mg/dL (1.8-2.4); PHOSPHOROUS 3.8 mg/dL (2.5-4.9); POTASSIUM - SERUM 3.2 mmol/L (3.5-5.1); SODIUM 144 mmol/L (136-145); UREA NITROGEN 19 mg/dL (7-18); eGFR NON AFRICAN AMERICAN 89 mL/min (90-120)
[2019-08-02 08:42] VITALS: BP 149/69
--- NOTE | 2019-08-02 11:39 | NUR ---
PT GOT PATIENT UP ON SIDE OF THE BED. UPON RETURNING TO THE BED IT WAS FOUND PATIENT HAD AN INCH AND A HALF SKIN TEAR ON LEFT BUTTOCKS. I PUT A MEPILEX 10 CM*10CM DRESSING WITH DATE AND INTIALS. STAT LOCK APPLIED TO RIGHT UPPER LEG FOR TREVIÑO. CL IN REACH. WCTM
--- NOTE | 2019-08-02 11:41 | EC ---
PATIENT:DALLAS MACIEL DATE OF SERVICE: 07/25/19 SEX: M MEDICAL RECORD: [id number] DATE OF : [birth year] LOCATION:[facility] AGE OF PATIENT: 68 ADMISSION DATE: 07/25/19 REFERRING PHYSICIAN: INTERPRETING PHYSICIAN: JAMAAL AVITIA MD ECHOCARDIOGRAM REPORT ECHO CHARGES 4 ECHO COMPLETE Date: 07/26/19 CLINICAL DIAGNOSIS: EDEMA/RESP.FAILURE/HTN ECHOCARDIOGRAPHIC MEASUREMENTS (adult normal given) AC root (d.<3.7cm) 3.1 cm LV Septum d (<1.2 cm> 2.2 cm Valve Excursion 1.0 cm LV Septum (systole) 2.6 cm Left Atria (s.<4.0cm> 3.6 cm LVPW d(<1.2cm) 1.9 cm RV (d.<2.3cm) 3.0 cm LVPW (sytole) 2.4 cm LV diastole(<5.6CM) 4.9 cm MV E-F(>70mm/sec) cm LV systole 3.3 cm LVOT Diameter 2.3 cm MV exc.(>10mm) cm Est.ejection fraction (50-75%) % DOPPLER: LVIT cm/sec A 82.0 cm/sec E 66.0 cm/sec LA cm/sec RVSP 16.0 mmHg LVOT 75.0 cm/sec AOP1/2T m/s Asc. Ao 138 cm/sec RVOT 89.0 cm/sec RA cm/sec PA 94.0 cm/sec AV Gradient Peak 7.6 mmHg AV Mean 4.5 mmHg AV Area 2.3 cm MV Gradient Peak 3.8 mmHg MV Mean 1.5 mmHg MV Area cm COMMENTS: Sap Security Architect: 1 ADAN MARTINEZDSOE In Service Education Teacher: 1 Dr. Avitia TAPE# PACS Pericardial Effusion N DATE OF SERVICE: PROCEDURE: Echocardiogram. FINDINGS: 1. Left ventricular chamber size is within normal limits. Left ventricular systolic function is normal. Overall ejection fraction estimated at 50% to 55%. 2. Left atrium is within normal limits at 3.6 cm. Right atrium and right ventricular chamber sizes are mildly dilated. 3. Valvular structures have normal structure and motion. ECHOCARDIOGRAM REPORT [id number] DALLAS MACIEL 4. Doppler interrogation reveals no significant valvular insufficiency or stenosis. Pulmonary systolic pressure is estimated at 16 mmHg. 5. No evidence of pericardial effusion or left ventricular thrombus. TRANSINT:[id number] Voice Confirmation ID: [id number] DOCUMENT ID: [id number] JAMAAL AVITIA MD at 1141 CC: [id number] DICTATION DATE: 07/27/19 1202 CORRUGATOR MACHINE OPERATOR: 07/27/19 1207 ADM IN [facility] [address] [place] [id number]
[2019-08-02 12:25] VITALS: BP 145/72
--- NOTE | 2019-08-02 14:51 | NUR ---
OT NOTE: PT SEEN IN AM. BED MOB WITH MAX ASSIST X 2; MOD/MAX ASSIST TO SCOOT TO EOB; MIN ASSIST WITH STATIC SITTING; PT WANTING TO ATTEMPT TO STAND. PROVIDED WALKER AND WITH MOD ASSIST X 2, PT WAS AABLE TO STAND WITH WALKER. ATTEMPTED TO TAKE STEPS TO CHAIR, HOWEVER, PT REPORTED FEELING THOUGH HIS LEGS WERE "GOING TO GIVE OUT" . GOT PT BACK TO CHAIR AND HAD TO LIE HIM BACK IN BED WITH MAX ASSIST X 2; PRACTICED ROLLING FROM SIDE TO SIDE WHILE POSITIONING KNEES IN FLEXED POSITION AND BLOCKING FEET. PT ABLE TO PERFORM THIS WITH MIN ASSIST. PT HAD SMALL BM AND REQUIRED CLEANING AND CHANGING OF PADS. SMALL SKIN TEAR NOTED AND NURSING CLEANED AND PLACED BANDAGE. EDUCATED PT ON UE/LE EXS AND EXPLAINED IMPORTANCE OF PERFORMING THESE EXS IN BED VS STAYING IN STATIC POSITION. OTIS CH, OTR/L
--- NOTE | 2019-08-02 16:42 | NUR ---
OT NOTE: PT COMPLETED SIDE ROLLING WITH MOD A. PT IS ABLE TO COMPLETE SIDE ROLLING I WITH THE USE OF RAILS. PT COMPLETED SUPINE TO SIT WITH TASKING EFFORT AND REQUIRED MAX/TOTAL A. PT ATTEMPTED SIT TO STAND BUT WAS UNABLE TO KEEP KNEES LOCKED TO HOLD SELF UPRIGHT. PT EXHIBITED POOR ACTIVITY TOLERANCE. PT REQUIRED TOTAL A FOR HYGIENE TASKS. THERAPY NOTICED SKIN BREAKDOWN/ TEAR WHILE PERFORMING HYGIENE TASKS. NURISNT NOTIFIED. PT EDUCATED TO COMPLETE SIDE ROLLING TO DECREASE SKIN BREAKDOWN AND INCREASE ACTIVITY TOLERANCE. THANK YOU, JABIER SKY
[2019-08-02 16:58] VITALS: BP 147/57
--- NOTE | 2019-08-02 18:00 | NUR ---
PATIENT TREVIÑO CARE PROVIDED. NO FURTHER NEEDS AT THIS TIME. CL IN REACH. WCTM
--- NOTE | 2019-08-02 20:29 | NUR ---
REC'D DURING CHGE OF SHIFT WALKING ROUNDS IN BED 02 3L NC NO RESP. DISTRESS OBSERVED CONTINUOUS PULSE OX SHOWING 94% AT PRESENT TIME.LARGE AMT. SWELLING LOWER EXT AND FEET BILAT. WITH BROWNISH CRUSTY SCAB AREA'S OBSERVED.ON BARIMAXX II AIR BED TREVIÑO PRESENT DRAINING DK YELLOW URINE. FAMILY AT BEDSIDE WILL CONTINUE TO MONITOR FOR ANY CHGES.IN RESP. STATUS AND FOLLOW CURRENT PLAN OF CARE.
[2019-08-02 21:26] VITALS: BP 130/70
[2019-08-03 02:26] VITALS: BP 146/60
[2019-08-03 05:51] VITALS: BP 125/61
[2019-08-03 07:59] LABS: BASOPHILS 0.4 % (0-2); EOSINOPHILS 3.2 % (0-7); HEMATOCRIT 50.2 % (42.0-54.0); HEMOGLOBIN 15.8 g/dL (13.5-17.5); IMMATURE GRANULOCYTES 0.4 % (0-5); LYMPHOCYTES 40.1 % (15-50); MCH 30.2 pg (26.0-34.0); MCHC 31.5 g/dL (31.0-37.0); MEAN PLATELET VOLUME 10.5 fL (7.4-10.4); MONOCYTES 6.4 % (2-11); NEUTROPHILS 49.5 % (40-80); PLATELET COUNT 187 10x3/uL (130-400); RBC 5.23 10x6/uL (4.20-6.10); RDW 14.5 % (11.5-14.5); WBC 13.6 10x3/uL (4.8-10.8)
--- NOTE | 2019-08-03 08:00 | NUR ---
PATIENT ASSISTED TO LAY ON RIGHT SIDE. CL IN REACH. AND DAUGHTER KENDRICK IN ROOM. CL IN REACH. [facility]
[2019-08-03 08:07] LABS: CALC OSMOLALITY 289 mosm/kg (275-300); CALCIUM 8.9 mg/dL (8.5-10.1); CARBON DIOXIDE 37.9 mmol/L (21.0-32.0); CHLORIDE - SERUM 100 mmol/L (98-107); CREATININE - SERUM 0.9 mg/dL (0.6-1.3); GLUCOSE 117 mg/dL (74-106); POTASSIUM - SERUM 3.1 mmol/L (3.5-5.1); SODIUM 144 mmol/L (136-145); UREA NITROGEN 17 mg/dL (7-18); eGFR NON AFRICAN AMERICAN 89 mL/min (90-120)
--- NOTE | 2019-08-03 08:30 | NUR ---
PATIENT ASSISTED TO SITTING POSITION WITH PILLOWS BEHIND BACK THEN HOB RAISED TO REACH A LEVEL OF COMFORT TO EAT. CL IN REACH. WCTM IN ROOM
[2019-08-03 08:45] VITALS: BP 120/63
--- NOTE | 2019-08-03 11:28 | NUR ---
PICC DRESSING CHANGE COMPLETED. STERILE TECHNIQUE MAINTAINED. IN ROOM. CL IN REACH. [facility]
--- NOTE | 2019-08-03 12:05 | NUR ---
PATIENT SITTING UP WITH PILLOWS PLACED BEHIND HIS BACK. HIGH FLOW ON AT 5 L. CL IN REACH. [facility]
[2019-08-03 12:16] VITALS: BP 122/63
--- NOTE | 2019-08-03 13:21 | NUR ---
ASSISTED PATIENT TO LAY ON LEFT SIDE. IN ROOM. CL IN REACH. [facility]
[2019-08-03 16:44] VITALS: BP 132/52
[2019-08-03 19:00] VITALS: BP 143/44
--- NOTE | 2019-08-03 19:48 | NUR ---
REC'D. LYING ON LEFT SIDE 02 5L NC SATING AT 97% NO RESP DISTRESS OBSERVED.LOWER EXT REMAINS SWOLLEN WITHSCABING AND DISCOLORATION NOTED. FAMILY AT BEDSIDE.TREVIÑO PATENT AND DRAINING DK STRAW YELLOW URINE. WILL CONTINUE TO MONITOR FOR ANY CHGES AND FOLLOW CURRENT PLAN OF CARE.
[2019-08-04] VITALS: BP 137/48
[2019-08-04 05:00] VITALS: BP 145/35
--- NOTE | 2019-08-04 07:34 | NUR ---
I have reviewed this patient and I concur with the Shift Assessment completed by the Licensed Practical Nurse today this shift.
--- NOTE | 2019-08-04 08:00 | NUR ---
AWAKE AND ALERT. ORIENTED X3. NO C/O AT THIS TIME. AT BEDSIDE. LUNGS ARE CLEAR BUT DIMINISHED IN LOWER LOBES. PRODUCTIVE COUGH NOTED. SKIN IS INTACT WITHOUT REDNESS EXCEPT SMALL STAGE 2 TO COCCYX. RIGHT PICC PATENT WITHOUT REDNESS AT INSERTION SITE. TREVIÑO PATENT WITH CLEAR YELLOW URINE. DENIES NEEDS. ASLEEP WITH BIPAP IN PLACE.
[2019-08-04 08:56] VITALS: BP 184/76
--- NOTE | 2019-08-04 09:30 | NUR ---
ATTEMPTED TO DRAW BLOOD FROM PICC WITHOUT SUCCESS.
--- NOTE | 2019-08-04 10:53 | NUR ---
BLOOD DRAWN FROM PICC USING ASEPTIC TECHNIQUE. SENT TO LAB. RESTING QUIETLY WITH EYES CLOSED. BIPAP IN PLACE.
[2019-08-04 10:57] LABS: BASOPHILS 0.3 % (0-2); EOSINOPHILS 2.9 % (0-7); HEMATOCRIT 46.3 % (42.0-54.0); HEMOGLOBIN 14.4 g/dL (13.5-17.5); IMMATURE GRANULOCYTES 0.4 % (0-5); LYMPHOCYTES 37.4 % (15-50); MCH 29.9 pg (26.0-34.0); MCHC 31.1 g/dL (31.0-37.0); MCV 96.1 fL (80.0-100.0); MEAN PLATELET VOLUME 10.8 fL (7.4-10.4); MONOCYTES 6.9 % (2-11); NEUTROPHILS 52.1 % (40-80); PLATELET COUNT 185 10x3/uL (130-400); RBC 4.82 10x6/uL (4.20-6.10); RDW 14.6 % (11.5-14.5); WBC 11.7 10x3/uL (4.8-10.8)
[2019-08-04 11:05] LABS: CALC OSMOLALITY 293 mosm/kg (275-300); CALCIUM 7.8 mg/dL (8.5-10.1); CARBON DIOXIDE 37.1 mmol/L (21.0-32.0); CHLORIDE - SERUM 107 mmol/L (98-107); GLUCOSE 146 mg/dL (74-106); SODIUM 145 mmol/L (136-145); UREA NITROGEN 18 mg/dL (7-18); eGFR NON AFRICAN AMERICAN 79 mL/min (90-120)
[2019-08-04 11:19] LABS: POTASSIUM - SERUM 2.9 mmol/L (3.5-5.1)
--- NOTE | 2019-08-04 12:30 | NUR ---
LUNCH SERVED IN ROOM. ASSITED WITH MEAL.
[2019-08-04 12:49] VITALS: BP 139/62
--- NOTE | 2019-08-04 14:00 | NUR ---
RESTING QUIETLY IN BED. DENIES NEEDS.
--- NOTE | 2019-08-04 14:19 | NUR ---
OT NOTE: PT DOING BETTER TODAY. 02 SATS REMAINED IN THE HIGH 80S TO MID 90S THROUGHOUT TMT SESSION. MOD ASSIST FOR SUPINE TO SIT WITH EXTENDED TIME AND VERBAL CUES FOR HAND PLACMENT. SITTING BALANCE ON EOB WITH SPV X 10 MIN. SIT TO STAND WITH MAX ASSIST AND USE OF WALKER. AABLE TO TOLERATED STANDING FOR APPROX 1-1.5 MIN. REQUIRED APPROX 5 MIN REST BREAK THEN STOOD AGAIN. ABLE TO MAINTAIN STANDING WITH WALKER AND MIN ASSIST, HOWEVER, UNABLE TO WT SHIFT, THEREFORE, UNABLE TO MOVE FEET FOR TRANSFERS. PT WANTING TO SIT UP IN CHAIR, BUT DUE TO LE WEAKNESS, PT IS NOT READY FOR TRANSFER. ALSO, THERE ARE NO CHAIRS AVAILABLE TO FIT PT AND NONE HIGH ENOUGH TO GET HIM FROM SIT TO STAND. PT CURRENTLY WITH BED ELEVATED IN ORDER TO INCREASE EASE OF SIT TO STAND AND STILL REQUIRES MAX ASSIST. WITH THE LOWER CHAIRS WE HAVE, I DONT FEEL WE WOULD BE ABLE TO GET HIM BACK UP TO STANDING POSITION. PRACTICED SUPINE TO SIT WTIH MOD ASSIST VS MAX X 2. PRACTICED HAVING PT ROLL FROM SIDE TO SIDE WITH ONLY MIN ASSIST AND CONSTANT VERBAL CUES. OTIS CH, OTR/L
[2019-08-04 16:28] VITALS: BP 142/69
--- NOTE | 2019-08-04 18:28 | NUR ---
FAMILY AT BEDSIDE. DENIES NEEDS. NO CHANGES NOTED.
[2019-08-04 19:00] VITALS: BP 149/53
[2019-08-05] VITALS: BP 160/63
[2019-08-05 04:00] VITALS: BP 136/59
[2019-08-05 07:16] LABS: BASOPHILS 0.4 % (0-2); EOSINOPHILS 4.3 % (0-7); HEMATOCRIT 49.9 % (42.0-54.0); HEMOGLOBIN 15.5 g/dL (13.5-17.5); IMMATURE GRANULOCYTES 0.6 % (0-5); LYMPHOCYTES 42.6 % (15-50); MCH 29.6 pg (26.0-34.0); MCHC 31.1 g/dL (31.0-37.0); MCV 95.2 fL (80.0-100.0); MEAN PLATELET VOLUME 11.2 fL (7.4-10.4); MONOCYTES 7.6 % (2-11); NEUTROPHILS 44.5 % (40-80); PLATELET COUNT 201 10x3/uL (130-400); RBC 5.24 10x6/uL (4.20-6.10); RDW 14.6 % (11.5-14.5)
[2019-08-05 07:48] LABS: ALBUMIN 2.4 g/dL (3.4-5.0); ANION GAP 6.3 mmol/L (8-16); BILIRUBIN - TOTAL 0.67 mg/dL (0.2-1.3); CALCIUM 8.9 mg/dL (8.5-10.1); CARBON DIOXIDE 33.1 mmol/L (21.0-32.0); CREATININE - SERUM 1.1 mg/dL (0.6-1.3); MAGNESIUM - SERUM 1.9 mg/dL (1.8-2.4); PHOSPHOROUS 4.1 mg/dL (2.5-4.9); PROTEIN - SERUM 6.9 g/dL (6.4-8.2)
[2019-08-05 07:49] LABS: POTASSIUM - SERUM 3.4 mmol/L (3.5-5.1)
[2019-08-05 08:12] VITALS: BP 143/61
--- NOTE | 2019-08-05 10:02 | MORECARE ---
CASE MANAGEMENT DISCHARGE SUMMARY PATIENT: DALLAS MACIEL UNIT: [id number] ADM DATE: 07/25/19 AGE: 68 : 51 SEX: M ROOM/BED: D.2201 AUTHOR: ANKUR,DOC PHYSICIAN: REFERRING PHYSICIAN: VIOLETA CARVALHO MD DATE OF SERVICE: 08/05/19 Discharge Plan Patient Name: DALLAS MACIEL Facility: [facility]:[place] : 1950 Planned Disposition: Home Anticipated Discharge Date: Discharge Date: Expected LOS: Initial Reviewer: [email or web address] Initial Review Date: 07/27/2019 Generated: 08/05/19 11:02 am DCP- Discharge Planning Updated by [id number]: Diane Wilson on 07/27/19 6:[address] Patient Name: DALLAS MACIEL Admission Status: Elective Accout number: [id number] Admission Date: 07-25-2019 : 1950 Admission Diagnosis: Attending: VIOLETA CARVALHO Current LOS: 2 Anticipated DC Date: Planned Disposition: Home Primary Insurance: [facility] MEDICARE SOLUTIONS Discharge Planning Comments: CM met with patient and Dariusz at bedside after explaining CM role and obtaining verbal consent. Patient recently extubated today would only answer questions by nodding. Patient lives at home with his Dariusz where he is partially dependent with his care and plans to return there upon discharge. Patient feels this would be a safe discharge. CM discussed availability / needs of home health and medical equipment. Dariusz states that patient has Home 02 with [facility]. Dariusz did mention that it is getting harder to take care of him at home. CM spoke to her regarding physical therapy evaluation and the possibility of rehab v/s HH. Patient denies any discharge needs at this time. CM will continue to follow and assist as needed with discharge planning / needs. Sign Manufacturer: Diane Wilson DCPIA - Discharge Planning Initial Assessment Updated by [email or web address]: Diane Wilson on 07/27/19 7:05 pm * How many steps to enter\exit or inside your home? ramp * PCP Dexter John * [facility]acy [facility] * Preadmission Environment Home with Family * ADLs Partial Dependent * Partial ADLs (Assistance needed) Ambulation Bathing Dressing Eating Medication Management Toileting Transfers * Other Equipment HOME 02 - [facility] PATIENT ELECTRIC W/C, SHOWER CHAIR -(CAN'T FIT IN SHOWER) * List name and contact numbers for known caregivers / representatives who currently or will assist patient after discharge: DARIUSZ MACIEL- SPOUSE- [phone] * Verbal permission to speak to the caregivers and representatives has been obtained from the patient. N/A * Community resources currently utilized None * Additional services required to return to the preadmission environment? No * Can the patient safely return to the preadmission environment? Yes * Has this patient been hospitalized within the prior 30 days at any hospital? No External Providers External Provider: [facility] Contact Date: Service Request Date: Service Type: Resolution: Reviewer: Comments: Last DP export: 07/27/19 6:17 Patient Name: DALLAS MACIEL Page 13712 at 1002 All edits/amendments must be made on the electronic document DICTATION DATE: 08/05/19 1002 ASSEMBLER SURGICAL GARMENT: GARRETT 08/05/19 1002 RPT#: [id number] DC DATE: STATUS: ADM IN [facility] [address] [place] [address] END OF REPORT
--- NOTE | 2019-08-05 10:10 | MORECARE ---
CASE MANAGEMENT DISCHARGE SUMMARY PATIENT: DALLAS MACIEL UNIT: [id number] ADM DATE: 07/25/19 AGE: 68 : 51 SEX: M ROOM/BED: D.2201 AUTHOR: ANKUR,DOC PHYSICIAN: REFERRING PHYSICIAN: VIOLETA CARVALHO MD DATE OF SERVICE: 08/05/19 Discharge Plan Patient Name: DALLAS MACIEL Facility: [facility]:[place] : 1950 Planned Disposition: Home Anticipated Discharge Date: Discharge Date: Expected LOS: Initial Reviewer: [email or web address] Initial Review Date: 07/27/2019 Generated: 08/05/19 11:09 am DCP- Discharge Planning Updated by [email or web address]: Diane Wilson on 07/27/19 6:[address] Patient Name: DALLAS MACIEL Admission Status: Elective Accout number: [id number] Admission Date: 07-25-2019 : 1950 Admission Diagnosis: Attending: VIOLETA CARVALHO Current LOS: 2 Anticipated DC Date: Planned Disposition: Home Primary Insurance: [facility] MEDICARE SOLUTIONS Discharge Planning Comments: CM met with patient and Dariusz at bedside after explaining CM role and obtaining verbal consent. Patient recently extubated today would only answer questions by nodding. Patient lives at home with his Dariusz where he is partially dependent with his care and plans to return there upon discharge. Patient feels this would be a safe discharge. CM discussed availability / needs of home health and medical equipment. Dariusz states that patient has Home 02 with [facility]. Dariusz did mention that it is getting harder to take care of him at home. CM spoke to her regarding physical therapy evaluation and the possibility of rehab v/s HH. Patient denies any discharge needs at this time. CM will continue to follow and assist as needed with discharge planning / needs. Drywall Metal Stud Worker: Diane Wilson DCPIA - Discharge Planning Initial Assessment Updated by [email or web address]: Diane Wilson on 07/27/19 7:05 pm * How many steps to enter\exit or inside your home? ramp * PCP Dexter John * [facility] * Preadmission Environment Home with Family * ADLs Partial Dependent * Partial ADLs (Assistance needed) Ambulation Bathing Dressing Eating Medication Management Toileting Transfers * Other Equipment HOME 02 - [facility] ELECTRIC W/C, SHOWER CHAIR -(CAN'T FIT IN SHOWER) * List name and contact numbers for known caregivers / representatives who currently or will assist patient after discharge: DARIUSZ MACIEL- SPOUSE- [phone] * Verbal permission to speak to the caregivers and representatives has been obtained from the patient. N/A * Community resources currently utilized None * Additional services required to return to the preadmission environment? No * Can the patient safely return to the preadmission environment? Yes * Has this patient been hospitalized within the prior 30 days at any hospital? No External Providers External Provider: [facility] Contact Date: Service Request Date: Service Type: Resolution: Reviewer: Comments: Last DP export: 08/05/19 9:02 a Patient Name: DALLAS MACIEL Page [phone] at 1010 All edits/amendments must be made on the electronic document DICTATION DATE: 08/05/19 100 SENIOR ENVIRONMENTAL TECHNICIAN: GARRETT 08/05/19 100 RPT#: [id number] DC DATE: STATUS: ADM IN [facility] [address] [place] [address] END OF REPORT
--- NOTE | 2019-08-05 12:17 | NUR ---
Nutrition follow-up: Diet: Regular as toleated PO intake is now ~73% average intake of last 10 meals Pt now sitting on the side of bed and stood with PT Will continue to provide food choices and honor food preferences. RDN following.
[2019-08-05 13:26] VITALS: BP 188/80
--- NOTE | 2019-08-05 14:48 | MORECARE ---
CASE MANAGEMENT DISCHARGE SUMMARY PATIENT: DALLAS MACIEL UNIT: [id number] ADM DATE: 07/25/19 AGE: 68 : 51 SEX: M ROOM/BED: D.2201 AUTHOR: CED PASCUAL PHYSICIAN: REFERRING PHYSICIAN: VIOLETA CARVALHO MD DATE OF SERVICE: 08/05/19 Discharge Plan Patient Name: DALLAS MACIEL Facility: [facility]:[place] : 1950 Planned Disposition: Home Anticipated Discharge Date: Discharge Date: Expected LOS: Initial Reviewer: [email or web address] Initial Review Date: 07/27/2019 Generated: 08/05/19 3:47 pm Comments DCP- Discharge Planning Updated by [email or web address]: Genesis Choudhury on 08/05/19 1:[address] I spoke with the patient's and she stated that [facility] and she would like her to go there. I will start that process, he is a managed medicare so he will need auth. He will need a Tr[facility] if he get accepted there, so spoke with about what DME she would like to use. She was not real happy with [facility]. [facility] with [facility] for [facility]. She was ok to keep [facility] ([facility]) I have sent the referral to [place] with [facility]. I will wait for Dr Roberts's documentation to send to [facility] to start this auth process. CM till continue to follow to assist. DCP- Discharge Planning Updated by [email or web address]: Diane Wilson on 07/27/19 6:[address] Patient Name: DALLAS MACIEL Admission Status: Elective Accout number: [id number] Admission Date: 07-25-2019 : 1950 Admission Diagnosis: Attending: VIOLETA CARVALHO Current LOS: 2 Anticipated DC Date: Planned Disposition: Home Primary Insurance: [facility] MEDICARE SOLUTIONS Discharge Planning Comments: CM met with patient and Dariusz at bedside after explaining CM role and obtaining verbal consent. Patient recently extubated today would only answer questions by nodding. Patient lives at home with his Dariusz where he is partially dependent with his care and plans to return there upon discharge. Patient feels this would be a safe discharge. CM discussed availability / needs of home health and medical equipment. Dariusz states that patient has Home 02 with [facility]. Dariusz did mention that it is getting harder to take care of him at home. CM spoke to her regarding physical therapy evaluation and the possibility of rehab v/s HH. Patient denies any discharge needs at this time. CM will continue to follow and assist as needed with discharge planning / needs. Gas Prover: Diane MOSER - Discharge Planning Initial Assessment Updated by [email or web address]: Diane Wilson on 07/27/19 7:05 pm * How many steps to enter\exit or inside your home? ramp * PCP Dexter John * [facility]acy [facility] * Preadmission Environment Home with Family * ADLs Partial Dependent * Partial ADLs (Assistance needed) Ambulation Bathing Dressing Eating Medication Management Toileting Transfers * Other Equipment HOME 02 - [facility] ELECTRIC W/C, SHOWER CHAIR -(CAN'T FIT IN SHOWER) * List name and contact numbers for known caregivers / representatives who currently or will assist patient after discharge: DARIUSZ MACIEL- SPOUSE- [phone] * Verbal permission to speak to the caregivers and representatives has been obtained from the patient. N/A * Community resources currently utilized None * Additional services required to return to the preadmission environment? No * Can the patient safely return to the preadmission environment? Yes * Has this patient been hospitalized within the prior 30 days at any hospital? No Coverage Notice Reviewer: [email or web address] Irma Choudhury Notice Issued Date-Time: 08/05/2019 9:50 Notice Type: Patient Choice Letter Notice Delivered To: Family Member Relationship to Patient: Spouse Area Supervisor Name: Dariusz Delivery Method: HAND - Hand Delivered Rosa Isela Days: Prior Verbal Notification: Recipient Understood Notice: Yes Recipient Signature: Yes Med Rec Note Co-signed by Attending: Coverage Notice Comment: [facility] ([facility]) [facility] ([facility]) Last DP export: 08/05/19 9:10 a Patient Name: DALLAS MACIEL Page [phone] at 1448 All edits/amendments must be made on the electronic document DICTATION DATE: 08/05/191446 AUTOMOTIVE FUEL SYSTEMS CONVERTER: GARRETT 08/05/191446 RPT#: [id number] DC DATE: STATUS: ADM IN [facility] [address] [place] [address] END OF REPORT
[2019-08-05 16:13] VITALS: BP 131/42
--- NOTE | 2019-08-05 19:17 | NUR ---
RESTING QUIETLY IN BED. DENIES NEEDS. FAMILY AT BEDSIDE.
[2019-08-05 19:53] VITALS: BP 135/70
[2019-08-06] VITALS: BP 136/61
[2019-08-06 04:00] VITALS: BP 148/62
[2019-08-06 06:41] LABS: BASOPHILS 0.2 % (0-2); EOSINOPHILS 1.4 % (0-7); HEMATOCRIT 51.2 % (42.0-54.0); HEMOGLOBIN 16.3 g/dL (13.5-17.5); IMMATURE GRANULOCYTES 0.5 % (0-5); LYMPHOCYTES 36.1 % (15-50); MCH 30.1 pg (26.0-34.0); MCHC 31.8 g/dL (31.0-37.0); MCV 94.5 fL (80.0-100.0); MEAN PLATELET VOLUME 12.2 fL (7.4-10.4); MONOCYTES 5.7 % (2-11); NEUTROPHILS 56.1 % (40-80); PLATELET COUNT 200 10x3/uL (130-400); RBC 5.42 10x6/uL (4.20-6.10); RDW 14.7 % (11.5-14.5)
[2019-08-06 07:25] LABS: ALBUMIN 2.6 g/dL (3.4-5.0); ALKALINE PHOSPHATASE 124 U/L (46-116); ALT (SGPT) 44 U/L (10-68); BILIRUBIN - TOTAL 0.56 mg/dL (0.2-1.3); CALC OSMOLALITY 287 mosm/kg (275-300); CALCIUM 8.6 mg/dL (8.5-10.1); CARBON DIOXIDE 28.4 mmol/L (21.0-32.0); CHLORIDE - SERUM 103 mmol/L (98-107); GLUCOSE 130 mg/dL (74-106); POTASSIUM - SERUM 4.1 mmol/L (3.5-5.1); SODIUM 142 mmol/L (136-145); UREA NITROGEN 20 mg/dL (7-18); eGFR NON AFRICAN AMERICAN 79 mL/min (90-120)
[2019-08-06 08:12] VITALS: BP 147/59
--- NOTE | 2019-08-06 08:20 | NUR ---
DRESSING CHANGED TO LEFT BUTTOCK. JACKI IN ROOM. REPOSITIONED IN BED. CL IN REACH. NO FURTHER NEEDS AT THIS TIME. WCTM
--- NOTE | 2019-08-06 10:12 | NUR ---
PT IN ROOM TALKING PLANS FOR PHYSICAL THERAPY. JACKI IN ROOM. RE REQUESTED AND RECEIVED. EXPLAINED THAT I CAN ONLY BRING IT REQUESTED. CL IN REACH. WCTM
--- NOTE | 2019-08-06 12:59 | NUR ---
IN ROOM. CL IN REACH. PATIENT EATING. NO NEEDS AT THIS TIME. WCTM
[2019-08-06 13:33] VITALS: BP 142/67
--- NOTE | 2019-08-06 14:20 | NUR ---
OT NOTE:(LATE ENTRY FOR 08/05/19)..PT PERFORMED WELL TODAY. EXTENSIVE PRACTICED WITH ROLLING SIDE TO SIDE AND SUPINE TO SIT. SITTING BALANCE ON EOB WAS GOOD AND 02 SATS REMAINED ABOVE [address] PERFORMED SIT TO STAND X 3 TRIALS WITH MOD ASSIST X 2. AGAIN, UNABLE AT THIS TIME TO WT SHIFT. PT WANTED TO SIT UP ON EOB SO WAS ALLOWED TO DO SO FOR APPROX 15 MIN. BACK TO BED WITH MOD ASSIST. PRACTICED USING BED RAILS TO SCOOT UP IN BED WITH LE SUPPORT. PT DOING MUCH BETTER. RECOMMEND IP REHAB TO ALLOW PT TO RETURN HOME TO [facility]. OTIS CH, OTR/L
[2019-08-06 16:23] VITALS: BP 153/69
--- NOTE | 2019-08-06 17:35 | NUR ---
FAMILY IN ROOM. CL IN REACH. NO NEEDS AT THIS TIME.
[2019-08-06 19:49] VITALS: BP 117/63
[2019-08-07] VITALS: BP 130/56
--- NOTE | 2019-08-07 00:51 | NUR ---
PATIENT RESTING QUIETLY, BIPAP IN USE, AT BEDSIDE, TREVIÑO DRAINING WITHOUT DIFFICULTY CLEAR YELLOW URINE. NO RESP. DISTRESS, WILL CONTINUE TO MONITOR
[2019-08-07 04:00] VITALS: BP 153/69
[2019-08-07 07:20] LABS: BASOPHILS 0.2 % (0-2); EOSINOPHILS 4.1 % (0-7); HEMATOCRIT 54.1 % (42.0-54.0); HEMOGLOBIN 17.3 g/dL (13.5-17.5); IMMATURE GRANULOCYTES 0.6 % (0-5); MCH 30.7 pg (26.0-34.0); MCV 95.9 fL (80.0-100.0); MEAN PLATELET VOLUME 11.7 fL (7.4-10.4); MONOCYTES 7.1 % (2-11); PLATELET COUNT 185 10x3/uL (130-400); RBC 5.64 10x6/uL (4.20-6.10); RDW 14.7 % (11.5-14.5); WBC 12.6 10x3/uL (4.8-10.8)
[2019-08-07 07:29] LABS: ALBUMIN 2.7 g/dL (3.4-5.0); BILIRUBIN - TOTAL 0.57 mg/dL (0.2-1.3); CARBON DIOXIDE 31.6 mmol/L (21.0-32.0); CREATININE - SERUM 1.2 mg/dL (0.6-1.3); POTASSIUM - SERUM 3.6 mmol/L (3.5-5.1); PROTEIN - SERUM 7.8 g/dL (6.4-8.2)
--- NOTE | 2019-08-07 10:15 | NUR ---
PATIENT LAYING IN BED WATCHING TWISTER. JACKI NOT HERE YET. FRESH WATER PROVIDED. CL IN REACH. TM
[2019-08-07 12:40] VITALS: BP 152/67
[2019-08-07 16:22] VITALS: BP 127/62
[2019-08-07 20:47] VITALS: BP 141/63
--- NOTE | 2019-08-07 20:49 | NUR ---
A/O WITH NO SIGNS OF ACUTE DISTRESS. IV TO THE LT AC WITH NO REDNESS OR SWELLING. NC @3L AND BIPAP @40% WHILE SLEEPING. CONTIN O2 READING @93% TREVIÑO IN PLACE WITH AT BEDSIDE. DENIES NO OTHER NEEDS AT THIS TIME. CONTINUE PLAN OF CARE.
[2019-08-08 00:58] VITALS: BP 130/64
[2019-08-08 05:55] VITALS: BP 140/60
--- NOTE | 2019-08-08 07:42 | MORECARE ---
CASE MANAGEMENT DISCHARGE SUMMARY PATIENT: DALLAS MACIEL UNIT: [id number] ADM DATE: 07/25/19 AGE: 68 : 51 SEX: M ROOM/BED: D.2201 AUTHOR: CED PASCUAL PHYSICIAN: REFERRING PHYSICIAN: VIOLETA CARVALHO MD DATE OF SERVICE: 08/08/19 Discharge Plan Patient Name: DALLAS MACIEL Facility: [facility]:[place] : 1950 Planned Disposition: Home Anticipated Discharge Date: Discharge Date: Expected LOS: Initial Reviewer: [email or web address] Initial Review Date: 07/27/2019 Generated: 08/08/19 8:41 am Comments DCP- Discharge Planning Updated by [email or web address]: Genesis Choudhury on 08/08/19 6:[address] sent update clinicals to [facility] for Tr[facility]ogy DCP- Discharge Planning Updated by [id number]: Genesis Choudhury on 08/05/19 2:[address] I spoke with the patient's and she stated that she has been in contact with [facility] inpatient rehab and she would like her to go there. I will start that process, he is a managed medicare so he will need auth. He will need a Triliogy if he get accepted there, so spoke with about what DME she would like to use. She was not real happy with [facility]. [facility] with [facility] for [facility]. She was ok to keep [facility] ([facility]) I have sent the referral to [place] with [facility]. I will wait for Dr Roberts's documentation to send to [facility] to start this auth process. CM till continue to follow to assist. DCP- Discharge Planning Updated by [id number]: Diane Wilson on 07/27/19 7:[address] Patient Name: DALLAS MACIEL Admission Status: Elective Accout number: [id number] Admission Date: 07-25-2019 : 1950 Admission Diagnosis: Attending: VIOLETA CARVALHO Current LOS: 2 Anticipated DC Date: Planned Disposition: Home Primary Insurance: [facility] MEDICARE SOLUTIONS Discharge Planning Comments: CM met with patient and Dariusz at bedside after explaining CM role and obtaining verbal consent. Patient recently extubated today would only answer questions by nodding. Patient lives at home with his Dariusz where he is partially dependent with his care and plans to return there upon discharge. Patient feels this would be a safe discharge. CM discussed availability / needs of home health and medical equipment. Dariusz states that patient has Home 02 with [facility]. Dariusz did mention that it is getting harder to take care of him at home. CM spoke to her regarding physical therapy evaluation and the possibility of rehab v/s HH. Patient denies any discharge needs at this time. CM will continue to follow and assist as needed with discharge planning / needs. Chiller Operator: Diane Wilson DCPIA - Discharge Planning Initial Assessment Updated by [email or web address]: Diane Wilson on 07/27/19 7:05 pm * How many steps to enter\exit or inside your home? ramp * PCP Dexter John * [facility]acy [facility] * Preadmission Environment Home with Family * ADLs Partial Dependent * Partial ADLs (Assistance needed) Ambulation Bathing Dressing Eating Medication Management Toileting Transfers * Other Equipment HOME 02 - [facility] ELECTRIC W/C, SHOWER CHAIR -(CAN'T FIT IN SHOWER) * List name and contact numbers for known caregivers / representatives who currently or will assist patient after discharge: DARIUSZ MACIEL- SPOUSE- [phone] * Verbal permission to speak to the caregivers and representatives has been obtained from the patient. N/A * Community resources currently utilized None * Additional services required to return to the preadmission environment? No * Can the patient safely return to the preadmission environment? Yes * Has this patient been hospitalized within the prior 30 days at any hospital? No Coverage Notice Reviewer: [id number] Irma Choudhury Notice Issued Date-Time: 08/05/2019 9:50 Notice Type: Patient Choice Letter Notice Delivered To: Family Member Relationship to Patient: Spouse Rail Manager Name: Dariusz Delivery Method: HAND - Hand Delivered Rosa Isela Days: Prior Verbal Notification: Recipient Understood Notice: Yes Recipient Signature: Yes Med Rec Note Co-signed by Attending: Coverage Notice Comment: [facility] ([facility]) [facility] ([facility]) Last DP export: 08/05/19 2:48 p Patient Name: DALLAS MACIEL Page [phone] at 0742 All edits/amendments must be made on the electronic document DICTATION DATE: 08/08/19740 BANQUET STEWARD: GARRETT 08/08/19740 RPT#: [id number] DC DATE: STATUS: ADM IN [facility] [address] [place] [address] END OF REPORT
[2019-08-08 07:44] LABS: BASOPHILS 0.6 % (0-2); EOSINOPHILS 3.9 % (0-7); HEMATOCRIT 50.4 % (42.0-54.0); HEMOGLOBIN 15.9 g/dL (13.5-17.5); IMMATURE GRANULOCYTES 0.6 % (0-5); LYMPHOCYTES 49.8 % (15-50); MCHC 31.5 g/dL (31.0-37.0); MCV 95.1 fL (80.0-100.0); MEAN PLATELET VOLUME 11.7 fL (7.4-10.4); MONOCYTES 6.7 % (2-11); NEUTROPHILS 38.4 % (40-80); PLATELET COUNT 199 10x3/uL (130-400); RDW 14.8 % (11.5-14.5); WBC 12.8 10x3/uL (4.8-10.8)
[2019-08-08 07:46] LABS: ALBUMIN 2.6 g/dL (3.4-5.0); ANION GAP 13.8 mmol/L (8-16); BILIRUBIN - TOTAL 0.49 mg/dL (0.2-1.3); CALCIUM 9.1 mg/dL (8.5-10.1); CARBON DIOXIDE 27.9 mmol/L (21.0-32.0); CREATININE - SERUM 1.1 mg/dL (0.6-1.3); POTASSIUM - SERUM 3.7 mmol/L (3.5-5.1); PROTEIN - SERUM 7.3 g/dL (6.4-8.2)
--- NOTE | 2019-08-08 08:00 | NUR ---
PATIENT RECIEVED FROM PREVIOUS NURSE RESTING IN BED WITH EYES CLOSED, NO DISTRESS, SPOUSE AT SIDE. CL IN REACH
[2019-08-08 08:27] VITALS: BP 129/52
[2019-08-08 11:58] VITALS: BP 113/59
--- NOTE | 2019-08-08 12:49 | NUR ---
Rehab Prescreening Consult recieved and the chart has been reviewed. Spo9ke to the CM Klelie Choudhury who says the patient has chosen [facility], and she has made a referral which is still pending. Helen Camarillo RN Clinical Liaison, Rehab
[2019-08-08 15:47] VITALS: BP 143/61
--- NOTE | 2019-08-08 16:55 | NUR ---
OT NOTE: PT PERFORMED WELL TODAY. BED MOB WITH MOD/MAX ASSIST FOR SUPINE TO SIT AND MIN/MOD ASSIST FOR SIT TO SUPINE; MAX ASSIST TO REPOSITION UP IN BED BUT PT ABLE TO ROLL FROM SIDE TO SIDE WITH MIN ASSIST. PERFORMED SIT TO STAND WITH WALKER X 3 TRIALS WITH MOD ASSIST X 2.. ONCE IN STANDING, PT REUQIRED ONLY MIN ASSIST. PT ABLE TO TOLERATED 2 MIN OF STANDING WITHOUT REST BREAK TODAY..ATTEMPTED WT SHIFTING BUT PT UNABLE TO TOLERATE WT SHIFT TO L SIDE. STATES THAT HE CANT FEEL ANYTHING FORM KNEE DOWN AND DOES NOT THINK IT WILL SUPPORT HIM. PT TOLERATED SITTING UP ON EOB INDEP WITHOUT SUPPORT X 15+ MIN. CONT TO RECOMMEND IP REHAB FOR MORE INTENST THERAPY. OTIS CH, OTR/L
--- NOTE | 2019-08-08 18:37 | NUR ---
PATIENT RESTING WITH NO NEEDS VOICED, AT SIDE
--- NOTE | 2019-08-08 19:00 | NUR ---
Patient lying in bed. Nasal canula @ 3L. Patient states his rash on his right arm and abdomen itches and he need benedryl. Bed rails x2, bed in low position. Call light and bedside table in reach.
[2019-08-08 20:00] VITALS: BP 115/67
[2019-08-09 04:00] VITALS: BP 120/65
[2019-08-09 06:45] LABS: HEMOGLOBIN 15.5 g/dL (13.5-17.5); MCHC 31.6 g/dL (31.0-37.0); MCV 94.8 fL (80.0-100.0); MEAN PLATELET VOLUME 12.5 fL (7.4-10.4); PLATELET COUNT 194 10x3/uL (130-400); RBC 5.17 10x6/uL (4.20-6.10); RDW 14.8 % (11.5-14.5); WBC 12.8 10x3/uL (4.8-10.8)
[2019-08-09 07:10] LABS: ALBUMIN 2.6 g/dL (3.4-5.0); ANION GAP 12.1 mmol/L (8-16); BILIRUBIN - TOTAL 0.44 mg/dL (0.2-1.3); CALCIUM 8.6 mg/dL (8.5-10.1); CARBON DIOXIDE 28.9 mmol/L (21.0-32.0); CREATININE - SERUM 1.1 mg/dL (0.6-1.3); PROTEIN - SERUM 6.5 g/dL (6.4-8.2)
--- NOTE | 2019-08-09 07:17 | NUR ---
AWAKE AND ALERT. ORIENTED X3. NO C/O AT THIS TIME. LUNGS ARE DIMINISHED THROUGOUT, OCCASSIONAL PRODUCTIVE COUGH NOTED. SKIN IS INTACT WITHOUT REDNESS EXCEPT WOUND TO COCCYX AND REDNESS DISCOLORATION TO BILATERAL LOWER LEGS. SL TO LEFT AC IS PATENT WITHOUT REDNESS AT INSERTION SITE. TREVIÑO PATENT WITH CLEAR YELLOW URINE. DENIES NEEDS. AT BEDSIDE.
[2019-08-09 08:28] VITALS: BP 127/65
--- NOTE | 2019-08-09 10:00 | NUR ---
TOOK AM MEDS WITHOUT DIFFICULTY. OT WAITING TO WORK WITH PATIENT.
--- NOTE | 2019-08-09 10:22 | NUR ---
OT NOTE: PT PERFORMED VERY WELL TODAY. PERFORMED SUPINE TO SIT WITHOUT ASSIST THIS AM. GOOD BALANCE WHILE SITTING ON EOB. MAX ASSIST TO CARLOS SHOES HE IS UNABLE TO BEND OVER TO REACH THEM. PERFORMED SIT TO STAND X 3 TRIALS WITH USE OF WALKER AND MOD ASSIST X 2.. ON LAST ATTEMPT, PT ABLE TO PERFORM WITH MIN ASSIST (AND ASSIST TO HOLD DOWN WALKER)..PT WOULD PERFORM MUCH BETTER WITH BARIATRIC WALKER BUT NONE ARE AVAILABLE. PT WAS ABLE TO TAKE ONE STEP FORWARD AND BACKWARD WITH EACH FOOT. PT SAT UP ON EOB WITHOUT SUPPORT X ALMOST 20 MIN. PERFORMED SIT TO SUPINE WITHOUT ASSIST FOR FIRST TIME TODAY. ALSO PRACTICED REPOSITIONING SELF IN BED WITH USE OF BED RAILS AND PT ABLE TO PERFORM WITHOUT ASSIST. PT DOING VERY WELL. OTIS CH, OTR/L
[2019-08-09 11:05] LABS: EOSINOPHILS 3 % (0-7); LYMPHOCYTES 47 % (15-50); MONOCYTES 2 % (2-11); NEUTROPHILS 44 % (40-80); PLATELET ESTIMATE NORMAL; ROULEAUX OCC
--- NOTE | 2019-08-09 12:00 | NUR ---
SL TO LEFT AC LEAKING. D/C WITH CATHETER INTACT.
[2019-08-09 13:11] VITALS: BP 95/65
--- NOTE | 2019-08-09 15:47 | MORECARE ---
CASE MANAGEMENT DISCHARGE SUMMARY PATIENT: DALLAS MACIEL UNIT: [id number] ADM DATE: 07/25/19 AGE: 68 : 51 SEX: M ROOM/BED: D.2201 AUTHOR: ANKURDOC PHYSICIAN: REFERRING PHYSICIAN: VIOLETA CARVALHO MD DATE OF SERVICE: 08/09/19 Discharge Plan Patient Name: DALLAS MACIEL Facility: [facility]:[place] : 1950 Planned Disposition: Home Anticipated Discharge Date: Discharge Date: Expected LOS: Initial Reviewer: [id number] Initial Review Date: 07/27/2019 Generated: 08/09/19 4:47 pm Comments DCP- Discharge Planning Updated by [email or web address]: Genesis Choudhury on 08/09/19 2:[address] PATIENT HAS BEEN APPROVED FOR [facility], WE HAVE TO GET TRILIOGY SET UP PRIOR TO DISCHARGE. DCP- Discharge Planning Updated by [email or web address]: Genesis Choudhury on 08/08/19 6:[address] sent update clinicals to [facility] for Triliogy DCP- Discharge Planning Updated by [email or web address]: Genesis Choudhury on 08/05/19 2:[address] I spoke with the patient's and she stated that she has been in contact with [facility] ([facility]) inpatient rehab and she would like her to go there. I will start that process, he is a managed medicare so he will need auth. He will need a Triliogy if he get accepted there, so spoke with about what DME she would like to use. She was not real happy with [facility]. SUMAN with [facility] for Triliogy. She was ok to keep [facility] ([facility]) I have sent the referral to [place] with [facility]. I will wait for Dr Roberts's documentation to send to [facility] to start this auth process. CM till continue to follow to assist. DCP- Discharge Planning Updated by [id number]: Diane Wilson on 07/27/19 7:[address] Patient Name: DALLAS MACIEL Admission Status: Elective Accout number: [id number] Admission Date: 07-25-2019 : 1950 Admission Diagnosis: Attending: VIOLETA CARVALHO Current LOS: 2 Anticipated DC Date: Planned Disposition: Home Primary Insurance: [facility] MEDICARE SOLUTIONS Discharge Planning Comments: CM met with patient and Dariusz at bedside after explaining CM role and obtaining verbal consent. Patient recently extubated today would only answer questions by nodding. Patient lives at home with his Dariusz where he is partially dependent with his care and plans to return there upon discharge. Patient feels this would be a safe discharge. CM discussed availability / needs of home health and medical equipment. Dariusz states that patient has Home 02 with [facility]. Dariusz did mention that it is getting harder to take care of him at home. CM spoke to her regarding physical therapy evaluation and the possibility of rehab v/s HH. Patient denies any discharge needs at this time. CM will continue to follow and assist as needed with discharge planning / needs. School Supervisor: Diane Wilson DCPIA - Discharge Planning Initial Assessment Updated by [email or web address]: Diane Wilson on 07/27/19 7:05 pm * How many steps to enter\exit or inside your home? ramp * PCP Dexter John * [facility] * Preadmission Environment Home with Family * ADLs Partial Dependent * Partial ADLs (Assistance needed) Ambulation Bathing Dressing Eating Medication Management Toileting Transfers * Other Equipment HOME 02 - [facility] PATIENT ELECTRIC W/C, SHOWER CHAIR -(CAN'T FIT IN SHOWER) * List name and contact numbers for known caregivers / representatives who currently or will assist patient after discharge: DARIUSZ MACIEL- SPOUSE- [phone] * Verbal permission to speak to the caregivers and representatives has been obtained from the patient. N/A * Community resources currently utilized None * Additional services required to return to the preadmission environment? No * Can the patient safely return to the preadmission environment? Yes * Has this patient been hospitalized within the prior 30 days at any hospital? No Coverage Notice Reviewer: [email or web address] - Genesis Choudhury Notice Issued Date-Time: 08/05/2019 9:50 Notice Type: Patient Choice Letter Notice Delivered To: Family Member Relationship to Patient: Spouse Supervisor Properties Name: Dariusz Delivery Method: HAND - Hand Delivered Rosa Isela Days: Prior Verbal Notification: Recipient Understood Notice: Yes Recipient Signature: Yes Med Rec Note Co-signed by Attending: Coverage Notice Comment: [facility] ([facility]) Triliogy ([facility]) Last DP export: 08/08/19 6:42 a Patient Name: DALLAS MACIEL Page 18736 at 1547 All edits/amendments must be made on the electronic document DICTATION DATE: 08/09/191546 SALES TRAINEE: GARRETT 08/09/191546 RPT#: [id number] DC DATE: STATUS: ADM IN [facility] [address] [place] [address] END OF REPORT
--- NOTE | 2019-08-09 16:23 | NUR ---
OT NOTE: PT COMPLETED UB HYGIENE TASKS WITH MIN A. PT COMPLETED SUPINE TO SIT WITH MIN A. PT COMPLETED EOB SITTING BALANCE WITH SBA. THANK YOU, JABIER SKY
[2019-08-09 16:48] VITALS: BP 125/53
--- NOTE | 2019-08-09 19:02 | NUR ---
RESTING QUIETLY IN BED. AT BEDSIDE. DENIES NEEDS. NO CHANGES NOTED.
[2019-08-09 20:00] VITALS: BP 117/65
--- NOTE | 2019-08-10 01:11 | NUR ---
191) rec'd chge of shift walking rounds.in speciality bed lying on right side eyes closed resp. deep and even at bedside asked by not to wake him up had not been able to rest all day.will continue to monitor for any chges and follow current plan of care.
[2019-08-10 04:00] VITALS: BP 104/53
[2019-08-10 05:42] LABS: BASOPHILS 0.5 % (0-2); EOSINOPHILS 2.9 % (0-7); HEMATOCRIT 50.6 % (42.0-54.0); HEMOGLOBIN 15.8 g/dL (13.5-17.5); IMMATURE GRANULOCYTES 0.4 % (0-5); LYMPHOCYTES 48.5 % (15-50); MCH 30.2 pg (26.0-34.0); MCHC 31.2 g/dL (31.0-37.0); MCV 96.7 fL (80.0-100.0); MEAN PLATELET VOLUME 12.1 fL (7.4-10.4); MONOCYTES 6.7 % (2-11); PLATELET COUNT 192 10x3/uL (130-400); RBC 5.23 10x6/uL (4.20-6.10); RDW 14.8 % (11.5-14.5); WBC 11.4 10x3/uL (4.8-10.8)
[2019-08-10 05:47] LABS: ANION GAP 10.8 mmol/L (8-16); CARBON DIOXIDE 27.4 mmol/L (21.0-32.0); CREATININE - SERUM 1.1 mg/dL (0.6-1.3); POTASSIUM - SERUM 4.2 mmol/L (3.5-5.1)
--- NOTE | 2019-08-10 06:00 | NUR ---
I have reviewed this patient and I concur with the Shift Assessment completed by the Licensed Practical Nurse today this shift.
[2019-08-10 08:06] VITALS: BP 133/89
--- NOTE | 2019-08-10 08:20 | NUR ---
AWAKE AND ALERT. ORIENTED X3. NO C/O AT THIS TIME. LUNGS ARE CLEAR BUT DIMINISHED. OCCASSIONAL DRY COUGH NOTED. SKIN IS INTACT WITHOUT REDNESS EXCEPT SMALL AREA TO COCCYX. NO IV AT THIS TIME. ON BIG BOY BED. AT BEDSIDE. BREAKFAST SERVED IN ROOM. DENIES NEEDS.
--- NOTE | 2019-08-10 10:30 | NUR ---
ATE MOST OF BREAKFAST. DENIES NEEDS. IN ROOM.
[2019-08-10 12:25] VITALS: BP 128/61
--- NOTE | 2019-08-10 13:05 | MORECARE ---
CASE MANAGEMENT DISCHARGE SUMMARY PATIENT: DALLAS MACIEL UNIT: [id number] ADM DATE: 07/25/19 AGE: 68 : 51 SEX: M ROOM/BED: D.2201 AUTHOR: ANKURDOC PHYSICIAN: REFERRING PHYSICIAN: VIOLETA CARVALHO MD DATE OF SERVICE: 08/10/19 Discharge Plan Patient Name: DALLAS MACIEL Facility: [facility]:[place] : 1950 Planned Disposition: Home Anticipated Discharge Date: Discharge Date: Expected LOS: Initial Reviewer: [email or web address] Initial Review Date: 07/27/2019 Generated: 08/10/19 2:05 pm Comments DCP- Discharge Planning Updated by [email or web address]: Kaylie Smith on 08/10/19 12:[address] [facility] we are having waiting on auth for Trilogy. She stated she would inform her program proposals coordinator to make them aware of the delay so they can make sure their auth does not . CM requested they let me know if they need additional information faxed to them. Kaylie Smith RN, [facility] DCP- Discharge Planning Updated by [email or web address]: Genesis Choudhury on 08/09/19 2:[address] PATIENT HAS BEEN APPROVED FOR [facility], WE HAVE TO GET TRILIOGY SET UP PRIOR TO DISCHARGE. DCP- Discharge Planning Updated by [email or web address]: Genesis Choudhury on 08/08/19 6:[address] sent update clinicals to [facility] for Triliogy DCP- Discharge Planning Updated by [email or web address]: Genesis Choudhury on 08/05/19 2:[address] I spoke with the patient's and she stated that she has been in contact with [facility] ([facility]) inpatient rehab and she would like her to go there. I will start that process, he is a managed medicare so he will need auth. He will need a Triliogy if he get accepted there, so spoke with about what DME she would like to use. She was not real happy with [facility]. SUMAN with [facility] for Triliogy. She was ok to keep [facility]ME ([facility]) I have sent the referral to [place] with [facility]. I will wait for Dr Roberts's documentation to send to [facility] to start this auth process. CM till continue to follow to assist. DCP- Discharge Planning Updated by [email or web address]: Diane Wilson on 07/27/19 7:[address] Patient Name: DALLAS MACIEL Admission Status: Elective Accout number: [id number] Admission Date: 07-25-2019 : 1950 Admission Diagnosis: Attending: VIOLETA CARVALHO Current LOS: 2 Anticipated DC Date: Planned Disposition: Home Primary Insurance: [facility] MEDICARE SOLUTIONS Discharge Planning Comments: CM met with patient and Dariusz at bedside after explaining CM role and obtaining verbal consent. Patient recently extubated today would only answer questions by nodding. Patient lives at home with his Dariusz where he is partially dependent with his care and plans to return there upon discharge. Patient feels this would be a safe discharge. CM discussed availability / needs of home health and medical equipment. Dariusz states that patient has Home 02 with [facility]. Dariusz did mention that it is getting harder to take care of him at home. CM spoke to her regarding physical therapy evaluation and the possibility of rehab v/s HH. Patient denies any discharge needs at this time. CM will continue to follow and assist as needed with discharge planning / needs. Dental Office Manager: Diane Wilson DCPIA - Discharge Planning Initial Assessment Updated by [email or web address]: Diane Wilson on 07/27/19 7:05 pm * How many steps to enter\exit or inside your home? ramp * PCP Dexter John * [facility] * Preadmission Environment Home with Family * ADLs Partial Dependent * Partial ADLs (Assistance needed) Ambulation Bathing Dressing Eating Medication Management Toileting Transfers * Other Equipment HOME 02 - [facility] PATIENT ELECTRIC W/C, SHOWER CHAIR -(CAN'T FIT IN SHOWER) * List name and contact numbers for known caregivers / representatives who currently or will assist patient after discharge: DARIUSZ MACIEL- SPOUSE- [phone] * Verbal permission to speak to the caregivers and representatives has been obtained from the patient. N/A * Community resources currently utilized None * Additional services required to return to the preadmission environment? No * Can the patient safely return to the preadmission environment? Yes * Has this patient been hospitalized within the prior 30 days at any hospital? No Coverage Notice Reviewer: [id number] Irma Choudhury Notice Issued Date-Time: 08/05/2019 9:50 Notice Type: Patient Choice Letter Notice Delivered To: Family Member Relationship to Patient: Spouse Photography Professor Name: Dariusz Delivery Method: HAND - Hand Delivered Rosa Isela Days: Prior Verbal Notification: Recipient Understood Notice: Yes Recipient Signature: Yes Med Rec Note Co-signed by Attending: Coverage Notice Comment: [facility]) Triliogy ([facility]) Last DP export: 08/09/19 2:47 p Patient Name: DALLAS MACIEL Page 08800 at 1305 All edits/amendments must be made on the electronic document DICTATION DATE: 08/10/19 1304 PNEUMATIC RIVETER: GARRETT 08/10/19 1304 RPT#: [id number] DC DATE: STATUS: ADM IN [facility] [address] [place] [address] END OF REPORT
--- NOTE | 2019-08-10 16:19 | NUR ---
OT NOTE: BED MOB WITH MIN ASSIST..COULD HAVE PERFORMED INDEP BUT WANTED TO TRY WITH BED INFLATED DUE TO BACK PAIN; EOB SITTING X 10 MIN IWTHOUT SUPPORT; SIT TO STAND WITH MIN/MOD ASSIST X 2; SEVERAL ATTEMPTS TO ADVANCE FEET, HOWEVER, DUE TO PAIN AND WEAKNESS IN L KNEE, PT IS UNABLE TO SUPPORT WT WHILE ATTEMPTING TO ADVANCE R LE. STANDING TOLERANCE IMPROVING DAILY. UE AROM STRENGTHENING EXS OTIS CH, OTR/L
--- NOTE | 2019-08-10 16:38 | MORECARE ---
CASE MANAGEMENT DISCHARGE SUMMARY PATIENT: DALLAS MACIEL UNIT: [id number] ADM DATE: 07/25/19 AGE: 68 : 51 SEX: M ROOM/BED: D.2201 AUTHOR: ANKUR,DOC PHYSICIAN: REFERRING PHYSICIAN: VIOLETA CARVALHO MD DATE OF SERVICE: 08/10/19 Discharge Plan Patient Name: DALLAS MACIEL Facility: [facility]:[place] : 1950 Planned Disposition: Home Anticipated Discharge Date: Discharge Date: Expected LOS: Initial Reviewer: [email or web address] Initial Review Date: 07/27/2019 Generated: 08/10/19 5:38 pm Comments DCP- Discharge Planning Updated by [email or web address]: Kaylie Smith on 08/10/19 3:[address] [facility] - can't admit patient on bipap and does not have a contract [facility] for the trilogy so they cant accept. [facility] Inpatient Rehab cant accommodate patient due to his bariatric size. Met with patient, his , and daughter to discuss the above. She stated they live close to [place] so they will agree to a chcf facility in [facility] that can accommodate his size and respiratory issues. Cm did not make calls to any facilities today. Will work on this tomorrow morning. Kaylie Smith RN,[facility] DCP- Discharge Planning Updated by [email or web address]: Kaylie Smith on 08/10/19 12:[address] [facility] of the delay we are having waiting on auth for Trilogy. She stated she would inform her hospitality coordinator to make them aware of the delay so they can make sure their auth does not . CM requested they let me know if they need additional information faxed to them. Kaylie Smith RN, CCM DCP- Discharge Planning Updated by [email or web address]: Genesis Choudhury on 08/09/19 2:[address] PATIENT HAS BEEN APPROVED FOR [facility], WE HAVE TO GET TRILIOGY SET UP PRIOR TO DISCHARGE. DCP- Discharge Planning Updated by [email or web address]: Genesis Choudhury on 08/08/19 6:[address] sent update clinicals to [facility] for Triliogy DCP- Discharge Planning Updated by [id number]: Genesis Choudhury on 08/05/19 2:[address] I spoke with the patient's and she stated that she has been in contact with [facility]) inpatient rehab and she would like her to go there. I will start that process, he is a managed medicare so he will need auth. He will need a Triliogy if he get accepted there, so spoke with about what DME she would like to use. She was not real happy with [facility]. SUMAN with [facility] for Triliogy. She was ok to keep [facility] ([facility]) I have sent the referral to [place] with [facility]. I will wait for Dr Roberts's documentation to send to [employer] to start this auth process. CM till continue to follow to assist. DCP- Discharge Planning Updated by [email or web address]: Diane Wilson on 07/27/19 7:[address] Patient Name: DALLAS MACIEL Admission Status: Elective Accout number: [id number] Admission Date: 07-25-2019 : 1950 Admission Diagnosis: Attending: VIOLETA CARVALHO Current LOS: 2 Anticipated DC Date: Planned Disposition: Home Primary Insurance: [employer] MEDICARE SOLUTIONS Discharge Planning Comments: CM met with patient and Dariusz at bedside after explaining CM role and obtaining verbal consent. Patient recently extubated today would only answer questions by nodding. Patient lives at home with his Dariusz where he is partially dependent with his care and plans to return there upon discharge. Patient feels this would be a safe discharge. CM discussed availability / needs of home health and medical equipment. Dariusz states that patient has Home 02 with [facility]. Dariusz did mention that it is getting harder to take care of him at home. CM spoke to her regarding physical therapy evaluation and the possibility of rehab v/s HH. Patient denies any discharge needs at this time. CM will continue to follow and assist as needed with discharge planning / needs. Javascript Engineer: Diane Wilson DCPIA - Discharge Planning Initial Assessment Updated by [email or web address]: Diane Wilson on 07/27/19 7:05 pm * How many steps to enter\exit or inside your home? ramp * PCP Dexter John * [facility] * Preadmission Environment Home with Family * ADLs Partial Dependent * Partial ADLs (Assistance needed) Ambulation Bathing Dressing Eating Medication Management Toileting Transfers * Other Equipment HOME 02 - [facility] PATIENT ELECTRIC W/C, SHOWER CHAIR -(CAN'T FIT IN SHOWER) * List name and contact numbers for known caregivers / representatives who currently or will assist patient after discharge: DARIUSZ MACIEL- SPOUSE- [phone] * Verbal permission to speak to the caregivers and representatives has been obtained from the patient. N/A * Community resources currently utilized None * Additional services required to return to the preadmission environment? No * Can the patient safely return to the preadmission environment? Yes * Has this patient been hospitalized within the prior 30 days at any hospital? No Coverage Notice Reviewer: [id number] Irma Choudhury Notice Issued Date-Time: 08/05/2019 9:50 Notice Type: Patient Choice Letter Notice Delivered To: Family Member Relationship to Patient: Spouse Hand Miter Operator Name: Dariusz Delivery Method: HAND - Hand Delivered Rosa Isela Days: Prior Verbal Notification: Recipient Understood Notice: Yes Recipient Signature: Yes Med Rec Note Co-signed by Attending: Coverage Notice Comment: [facility] ([facility]) Triliogy ([facility]) Last DP export: 08/10/19 12:05 p Patient Name: DALLAS MACIEL Page [id number] at 1638 All edits/amendments must be made on the electronic document DICTATION DATE: 08/10/191637 SAMPLE DRILLER: GARRETT 08/10/198 RPT#: [id number] DC DATE: STATUS: ADM IN [facility] [address] [place] [address] END OF REPORT
--- NOTE | 2019-08-10 16:48 | MORECARE ---
CASE MANAGEMENT DISCHARGE SUMMARY PATIENT: DALLAS MACIEL UNIT: [id number] ADM DATE: 07/25/19 AGE: 68 : 51 SEX: M ROOM/BED: D.2201 AUTHOR: ANKUR,DOC PHYSICIAN: REFERRING PHYSICIAN: VIOLETA CARVALHO MD DATE OF SERVICE: 08/10/19 Discharge Plan Patient Name: DALLAS MACIEL [facility] [facility] 1950 Planned Disposition: Home Anticipated Discharge Date: Discharge Date: Expected LOS: Initial Reviewer: [email or web address] Initial Review Date: 07/27/2019 Generated: 08/10/19 5:47 pm Comments DCP- Discharge Planning Updated by [id number]: Kaylie Smith on 08/10/19 3:[address] Patient's gave CM number for the provider line at [facility] [phone]. She stated when she spoke to the insurance company they told her if the MD would call the provider line it may speed up the process on getting authorization for the Trilogy. CM did not relay this message at this time to the MD due to it being close to 1700 and the insurance company is closing. Kaylie Smith RN, [facility] DCP- Discharge Planning Updated by [email or web address]: Kaylie Smith on 08/10/19 3:33 pm [facility] - can't admit patient on bipap and does not have a contract [facility] for the trilogy so they cant accept. [facility] Inpatient Rehab cant accommodate patient due to his bariatric size. Met with patient, his , and daughter to discuss the above. She stated they live close to [place] so they will agree to a penitentiary facility [facility] that can accommodate his size and respiratory issues. Cm did not make calls to any facilities today. Will work on this tomorrow morning. Kaylie Smith RN,[facility] DCP- Discharge Planning Updated by [email or web address]: Kaylie Smith on 08/10/19 12:[address] Spoke to Chelly with [facility] rehab informing her of the delay we are having waiting on auth for Trilogy. She stated she would inform her e commerce merchandising coordinator to make them aware of the delay so they can make sure their auth does not . CM requested they let me know if they need additional information faxed to them. Kaylie Smith RN, [facility] DCP- Discharge Planning Updated by [email or web address]: Genesis Gascaken on 08/09/19 2:[address] PATIENT HAS BEEN APPROVED FOR [facility], WE HAVE TO GET TRILIOGY SET UP PRIOR TO DISCHARGE. DCP- Discharge Planning Updated by [email or web address]: Genesis Kei on 08/08/19 6:[address] sent update clinicals to [facility] for Triliogy DCP- Discharge Planning Updated by [email or web address]: Genesis Kei on 08/05/19 2:[address] I spoke with the patient's and she stated that she has been in contact with [facility] ([facility]) inpatient rehab and she would like her to go there. I will start that process, he is a managed medicare so he will need auth. He will need a Triliogy if he get accepted there, so spoke with about what DME she would like to use. She was not real happy with [facility]. SUMAN with [facility] for Triliogy. She was ok to keep [facility] DME ([facility]) I have sent the referral to [place] with [facility]. I will wait for Dr Roberts's documentation to send to [facility] to start this auth process. CM till continue to follow to assist. DCP- Discharge Planning Updated by [email or web address]: Diane Katie on 07/27/19 7:[address] Patient Name: DALLAS MACIEL Admission Status: Elective Accout number: [id number] Admission Date: 07-25-2019 : 1950 Admission Diagnosis: Attending: VIOLETA CARVALHO Current LOS: 2 Anticipated DC Date: Planned Disposition: Home Primary Insurance: [facility] MEDICARE SOLUTIONS Discharge Planning Comments: CM met with patient and Dariusz at bedside after explaining CM role and obtaining verbal consent. Patient recently extubated today would only answer questions by nodding. Patient lives at home with his Dariusz where he is partially dependent with his care and plans to return there upon discharge. Patient feels this would be a safe discharge. CM discussed availability / needs of home health and medical equipment. Dariusz states that patient has Home 02 with [facility]. Dariusz did mention that it is getting harder to take care of him at home. CM spoke to her regarding physical therapy evaluation and the possibility of rehab v/s HH. Patient denies any discharge needs at this time. CM will continue to follow and assist as needed with discharge planning / needs. Business Dean: Diane Wilson DCPIA - Discharge Planning Initial Assessment Updated by [email or web address]: Diane Wilson on 07/27/19 7:05 pm * How many steps to enter\exit or inside your home? ramp * PCP Dexter John * [facility] * Preadmission Environment Home with Family * ADLs Partial Dependent * Partial ADLs (Assistance needed) Ambulation Bathing Dressing Eating Medication Management Toileting Transfers * Other Equipment HOME 02 - [facility] [place] HOME PATIENT ELECTRIC W/C, SHOWER CHAIR -(CAN'T FIT IN SHOWER) * List name and contact numbers for known caregivers / representatives who currently or will assist patient after discharge: DARIUSZ MACIEL- SPOUSE- [phone] * Verbal permission to speak to the caregivers and representatives has been obtained from the patient. N/A * Community resources currently utilized None * Additional services required to return to the preadmission environment? No * Can the patient safely return to the preadmission environment? Yes * Has this patient been hospitalized within the prior 30 days at any hospital? No Coverage Notice Reviewer: [email or web address] Irma Choudhury Notice Issued Date-Time: 08/05/2019 9:50 Notice Type: Patient Choice Letter Notice Delivered To: Family Member Relationship to Patient: Spouse Truck Body Builder Apprentice Name: Dariusz Delivery Method: HAND - Hand Delivered Rosa Isela Days: Prior Verbal Notification: Recipient Understood Notice: Yes Recipient Signature: Yes Med Rec Note Co-signed by Attending: Coverage Notice Comment: [facility] ([facility]) Triliogy ([facility]) Last DP export: 08/10/19 3:38 p Patient Name: DALLAS MACIEL Page [id number] at 1648 All edits/amendments must be made on the electronic document DICTATION DATE: 08/10/191646 CARD CUTTER HELPER: GARRETT 08/10/191646 RPT#: [id number] DC DATE: STATUS: ADM IN [facility] [address] [place] [address] END OF REPORT
--- NOTE | 2019-08-10 18:34 | NUR ---
ATE MOST OF SUPPER. FAMILY IN ROOM. DENIES NEEDS. NO CHANGES NOTED.
--- NOTE | 2019-08-10 19:20 | NUR ---
LYING IN BED WITH FAMILY AT BEDSIDE. ABLE TO VOICE ALL NEEDS. DENIES ANY PAIN AT THIS TIME. IN PLEASANT MOOD WITH PLEASANT AFFECT. O2 IS AT 3L VIA NC AT THIS TIME. NO S/S OF ANY ACUTE DISTRESS.
[2019-08-10 20:00] VITALS: BP 136/58
--- NOTE | 2019-08-11 02:16 | NUR ---
I have reviewed this patient and I concur with the Shift Assessment completed by the Licensed Practical Nurse today this shift.
[2019-08-11 04:00] VITALS: BP 122/60
--- NOTE | 2019-08-11 05:20 | NUR ---
RESTED WELL THIS SHIFT WITH AID OF BIPAP, CONTINUES AT BEDSIDE. VOICES NO COMPLAINTS. WILL NOTE ANY CHANGE.
[2019-08-11 06:06] LABS: BASOPHILS 0.4 % (0-2); EOSINOPHILS 2.8 % (0-7); HEMATOCRIT 50.1 % (42.0-54.0); HEMOGLOBIN 15.8 g/dL (13.5-17.5); IMMATURE GRANULOCYTES 0.6 % (0-5); MCH 30.2 pg (26.0-34.0); MCHC 31.5 g/dL (31.0-37.0); MCV 95.8 fL (80.0-100.0); MEAN PLATELET VOLUME 11.4 fL (7.4-10.4); MONOCYTES 7.4 % (2-11); NEUTROPHILS 42.8 % (40-80); PLATELET COUNT 167 10x3/uL (130-400); RBC 5.23 10x6/uL (4.20-6.10); RDW 14.6 % (11.5-14.5); WBC 10.4 10x3/uL (4.8-10.8)
[2019-08-11 06:39] LABS: ANION GAP 10.1 mmol/L (8-16); CALCIUM 8.6 mg/dL (8.5-10.1); CARBON DIOXIDE 31.1 mmol/L (21.0-32.0); CREATININE - SERUM 1.1 mg/dL (0.6-1.3); POTASSIUM - SERUM 4.2 mmol/L (3.5-5.1)
--- NOTE | 2019-08-11 07:30 | NUR ---
PATIENT RESTING ON RIGHT SIDE. JACKI IN ROOM. CL IN REACH. SAYS PAIN LEVEL IS A 6 OUT OF 10 ON THE PAIN SCALE. WARM TOWEL APPLIED TO RIGHT LOWER EXTREMITY TO HELP WITH PAIN. WCTM
--- NOTE | 2019-08-11 08:30 | MORECARE ---
CASE MANAGEMENT DISCHARGE SUMMARY PATIENT: DALLAS MACIEL UNIT: [id number] ADM DATE: 07/25/19 AGE: 68 : 51 SEX: M ROOM/BED: D.2201 AUTHOR: ANKUR,DOC PHYSICIAN: REFERRING PHYSICIAN: VIOLETA CARVALHO MD DATE OF SERVICE: 08/11/19 Discharge Plan Patient Name: DALLAS MACIEL [facility] [facility] 1950 Planned Disposition: Home Anticipated Discharge Date: Discharge Date: Expected LOS: Initial Reviewer: [id number] Initial Review Date: 07/27/2019 Generated: 08/11/19 9:30 am Comments DCP- Discharge Planning Updated by [email or web address]: Kaylie Smith on 08/10/19 3:[address] Patient's gave CM number for the provider line at [facility] [phone]. She stated when she spoke to the insurance company they told her if the MD would call the provider line it may speed up the process on getting authorization for the Trilogy. did not relay this message at this time to the MD due to it being close to 1700 and the insurance company is closing. Kaylie Smith RN, [facility] DCP- Discharge Planning Updated by [email or web address]: Kaylie Smith on 08/10/19 3:33 pm [facility] - can't admit patient on bipap and does not have a contract [facility] for the trilogy so they cant accept. 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 Met with patient, his , and daughter to discuss the above. She stated they live close to [place] so they will agree to a longterm facility in [facility] that can accommodate his size and respiratory issues. Cm did not make calls to any facilities today. Will work on this tomorrow morning. Kaylie Smith RN,[facility] DCP- Discharge Planning Updated by [id number]: Kaylie Smith on 08/10/19 12:[address] Spoke to Chelly with [facility] rehab informing her of the delay we are having waiting on auth for Trilogy. She stated she would inform her admissions specialist to make them aware of the delay so they can make sure their auth does not . CM requested they let me know if they need additional information faxed to them. Kaylie Smith RN, [facility] DCP- Discharge Planning Updated by [id number]: Genesis Gascaken on 08/09/19 2:[address] PATIENT HAS BEEN APPROVED FOR [facility], WE HAVE TO GET TRILIOGY SET UP PRIOR TO DISCHARGE. DCP- Discharge Planning Updated by [id number]: Genesis Kei on 08/08/19 6:[address] sent update clinicals to [facility] for Triliogy DCP- Discharge Planning Updated by [id number]: Genesis Kei on 08/05/19 2:[address] I spoke with the patient's and she stated that she has been in contact with [facility] ([facility]) inpatient rehab and she would like her to go there. I will start that process, he is a managed medicare so he will need auth. He will need a Triliogy if he get accepted there, so spoke with about what DME she would like to use. She was not real happy with [facility]. SUMAN with [facility] for Triliogy. She was ok to keep [facility] ([facility]) I have sent the referral to [place] with [facility]. I will wait for Dr Roberts's documentation to send to [facility] to start this auth process. CM till continue to follow to assist. DCP- Discharge Planning Updated by [id number]: Diane Katie on 07/27/19 7:[address] Patient Name: DALLAS MACIEL Admission Status: Elective Accout number: [id number] Admission Date: 07-25-2019 : 1950 Admission Diagnosis: Attending: VIOLETA CARVALHO Current LOS: 2 Anticipated DC Date: Planned Disposition: Home Primary Insurance: [facility] [employer] Discharge Planning Comments: CM met with patient and Dariusz at bedside after explaining CM role and obtaining verbal consent. Patient recently extubated today would only answer questions by nodding. Patient lives at home with his Dariusz where he is partially dependent with his care and plans to return there upon discharge. Patient feels this would be a safe discharge. CM discussed availability / needs of home health and medical equipment. Dariusz states that patient has Home 02 with [facility]. Dariusz did mention that it is getting harder to take care of him at home. CM spoke to her regarding physical therapy evaluation and the possibility of rehab v/s HH. Patient denies any discharge needs at this time. CM will continue to follow and assist as needed with discharge planning / needs. [place] Head: Diane Car DCPIA - Discharge Planning Initial Assessment Updated by [id number]: Diane Wilson on 07/27/19 7:05 pm * How many steps to enter\exit or inside your home? ramp * PCP Dexter John * [facility] * Preadmission Environment Home with Family * ADLs Partial Dependent * Partial ADLs (Assistance needed) Ambulation Bathing Dressing Eating Medication Management Toileting Transfers * Other Equipment HOME 02 - [facility] ELECTRIC W/C, SHOWER CHAIR -(CAN'T FIT IN SHOWER) * List name and contact numbers for known caregivers / representatives who currently or will assist patient after discharge: DARIUSZ MACIEL- SPOUSE- [phone] * Verbal permission to speak to the caregivers and representatives has been obtained from the patient. N/A * Community resources currently utilized None * Additional services required to return to the preadmission environment? No * Can the patient safely return to the preadmission environment? Yes * Has this patient been hospitalized within the prior 30 days at any hospital? No External Providers External Provider: [facility] Next Contact Date: Service Request Date: Service Type: Resolution: Reviewer: Comments: Coverage Notice Reviewer: [id number] - Genesis Choudhury Notice Issued Date-Time: 08/05/2019 9:50 Notice Type: Patient Choice Letter Notice Delivered To: Family Member Relationship to Patient: Spouse Child Care Lead Teacher Name: Dariusz Delivery Method: HAND - Hand Delivered Rosa Isela Days: Prior Verbal Notification: Recipient Understood Notice: Yes Recipient Signature: Yes Med Rec Note Co-signed by Attending: Coverage Notice Comment: [facility] ([facility]) Triliogy ([facility]) Reviewer: [id number] - Asuncion Valentine Notice Issued Date-Time: 08/11/2019 8:28 Notice Type: Patient Choice Letter Notice Delivered To: Family Member Relationship to Patient: Spouse Child Care Lead Teacher Name: Dariusz Maciel Delivery Method: HAND - Hand Delivered Rosa Isela Days: Prior Verbal Notification: Recipient Understood Notice: Yes Recipient Signature: Yes Med Rec Note Co-signed by Attending: Coverage Notice Comment: Daya Last DP export: 08/10/19 3:48 p Patient Name: DALLAS MACIEL Page [id number] at 0830 All edits/amendments must be made on the electronic document DICTATION DATE: 08/11/19829 DIGITAL ADVISOR: GARRETT 08/11/19829 RPT#: [id number] DC DATE: STATUS: ADM IN [facility] [address] [place] [address] END OF REPORT
--- NOTE | 2019-08-11 08:37 | MORECARE ---
CASE MANAGEMENT DISCHARGE SUMMARY PATIENT: DALLAS MACIEL UNIT: [id number] ADM DATE: 07/25/19 AGE: 68 : 51 SEX: M ROOM/BED: D.2201 AUTHOR: ANKUR,DOC PHYSICIAN: REFERRING PHYSICIAN: VIOLETA CARAVLHO MD DATE OF SERVICE: 08/11/19 Discharge Plan Patient Name: DALLAS MACIEL Facility: [facility]:[place] : 1950 Planned Disposition: Home Anticipated Discharge Date: Discharge Date: Expected LOS: Initial Reviewer: [email or web address] Initial Review Date: 07/27/2019 Generated: 08/11/19 9:37 am Comments DCP- Discharge Planning Updated by [email or web address]: Asuncion Valentine on 08/11/19 7:[address] Patient's states she would like a referral to [facility] in [place]. I faxed clinical to [facility] and called and left a voice mail with Katie Parks to return my call. CM will continue to follow and assist with discharge planning/needs. DCP- Discharge Planning Updated by [id number]: Kaylie Smith on 08/10/19 3:[address] Patient's gave CM number for the provider line at [facility] [phone]. She stated when she spoke to the insurance company they told her if the MD would call the provider line it may speed up the process on getting authorization for the Trilogy. CM did not relay this message at this time to the MD due to it being close to 1700 and the insurance company is closing. Kaylie Smith RN, [facility] DCP- Discharge Planning Updated by [id number]: Kaylie Smith on 08/10/19 3:[address] [facility] - can't admit patient on bipap and [facility] so they cant accept. [facility] In[facility] Re[facility] cant accommodate patient due to his bariatric size. Met with patient, his , and daughter to discuss the above. She stated they live close to [place] so they will agree to a custodial facility in [place] or [place] that can accommodate his size and respiratory issues. Cm did not make calls to any facilities today. Will work on this tomorrow morning. Kaylie Smith RN,[facility] DCP- Discharge Planning Updated by [email or web address]: Kaylie Smith on 08/10/19 12:[address] [facility] delay we are having waiting on auth for Trilogy. She stated she would inform her admissions clerk to make them aware of the delay so they can make sure their auth does not . CM requested they let me know if they need additional information faxed to them. Kaylie Smith RN, [facility] DCP- Discharge Planning Updated by [id number]: Genesis Choudhury on 08/09/19 2:[address] PATIENT HAS BEEN APPROVED FOR [facility], WE HAVE TO GET TRILIOGY SET UP PRIOR TO DISCHARGE. DCP- Discharge Planning Updated by [id number]: Genesis Choudhury on 08/08/19 6:[address] sent update clinicals to [facility] for Triliogy DCP- Discharge Planning Updated by [id number]: Genesis Choudhury on 08/05/19 2:[address] I spoke with the patient's and she stated that she has been in contact with [facility]) inpatient rehab and she would like her to go there. I will start that process, he is a managed medicare so he will need auth. He will need a Triliogy if he get accepted there, so spoke with about what DME she would like to use. She was not real happy with [facility]. SUMAN with [facility] for Triliogy. She was ok to keep Home [facility]2 DME ([facility]) I have sent the referral to [place] with [facility]. I will wait for Dr Roberts's documentation to send to [facility] to start this auth process. CM till continue to follow to assist. DCP- Discharge Planning Updated by [id number]: Diane Wilson on 07/27/19 7:[address] Patient Name: DALLAS MACIEL Admission Status: Elective Accout number: [id number] Admission Date: 07-25-2019 : 1950 Admission Diagnosis: Attending: VIOLETA CARVALHO Current LOS: 2 Anticipated DC Date: Planned Disposition: Home Primary Insurance: [facility] [employer]UTIONS Discharge Planning Comments: CM met with patient and Dariusz at bedside after explaining CM role and obtaining verbal consent. Patient recently extubated today would only answer questions by nodding. Patient lives at home with his Dariusz where he is partially dependent with his care and plans to return there upon discharge. Patient feels this would be a safe discharge. CM discussed availability / needs of home health and medical equipment. Dariusz states that patient has Home 02 with [facility]. Dariusz did mention that it is getting harder to take care of him at home. CM spoke to her regarding physical therapy evaluation and the possibility of rehab v/s HH. Patient denies any discharge needs at this time. CM will continue to follow and assist as needed with discharge planning / needs. Vp Delivery: Diane Wilson DCPIA - Discharge Planning Initial Assessment Updated by [id number]: Diane Wilson on 07/27/19 7:05 pm * How many steps to enter\exit or inside your home? ramp * PCP Dexter John * [facility] * Preadmission Environment Home with Family * ADLs Partial Dependent * Partial ADLs (Assistance needed) Ambulation Bathing Dressing Eating Medication Management Toileting Transfers * Other Equipment HOME 02 - [facility] ELECTRIC W/C, SHOWER CHAIR -(CAN'T FIT IN SHOWER) * List name and contact numbers for known caregivers / representatives who currently or will assist patient after discharge: DARIUSZ MACIEL- SPOUSE- [phone] * Verbal permission to speak to the caregivers and representatives has been obtained from the patient. N/A * Community resources currently utilized None * Additional services required to return to the preadmission environment? No * Can the patient safely return to the preadmission environment? Yes * Has this patient been hospitalized within the prior 30 days at any hospital? No Coverage Notice Reviewer: [id number] - Genesis Choudhury Notice Issued Date-Time: 08/05/2019 9:50 Notice Type: Patient Choice Letter Notice Delivered To: Family Member Relationship to Patient: Spouse Rail Project Engineer Name: Dariusz Delivery Method: HAND - Hand Delivered Rosa Isela Days: Prior Verbal Notification: Recipient Understood Notice: Yes Recipient Signature: Yes Med Rec Note Co-signed by Attending: Coverage Notice Comment: [facility] ([facility]) Triliogy ([facility]) Reviewer: [id number] - Asuncion Valentine Notice Issued Date-Time: 08/11/2019 8:28 Notice Type: Patient Choice Letter Notice Delivered To: Family Member Relationship to Patient: Spouse Rail Project Engineer Name: Dariusz Maciel Delivery Method: HAND - Hand Delivered Rosa Isela Days: Prior Verbal Notification: Recipient Understood Notice: Yes Recipient Signature: Yes Med Rec Note Co-signed by Attending: Coverage Notice Comment: Daya Last DP export: 08/11/19 7:30 a Patient Name: DALLAS MACIEL Page [phone] at 0837 All edits/amendments must be made on the electronic document DICTATION DATE: 08/11/1937 PRECISION AGRICULTURE TECHNICIAN: GARRETT 08/11/1937 RPT#: [id number] DC DATE: STATUS: ADM IN [facility] [address] [place] [address] END OF REPORT
[2019-08-11 09:23] VITALS: BP 121/63
--- NOTE | 2019-08-11 10:22 | NUR ---
OT NOTE: PT AND FAMILY VERY FRUSTRATED ABOUT WHERE PT IS GOING TO GO AT DC. PT IS DOING MUCH BETTER. BED MOB WITH SPV TODAY FOR SUPINE TO SIT AND SIT TO SUPINE; SIT TO STAND WITH MIN ASSIST X 2; ABLE TO STAND FOR 1.5 MIN X 2 TRIALS. ABLE TO TO SIDE STEP BY STEPPING L FOOT BUT SLIDING R FOOT DUE TO WEAKNESS IN L LE AND UNABLE TO FULLY BEAR ALL OF HIS WT THROUGH L LE. SIMPLE GROOMING TASKS WITH SET UP; ABLE TO PERFORM UE AND LE EXS WITH MUCH IMPROVEMENT SINCE INITIAL TMT. OTIS CH, OTR/L
[2019-08-11] MEDS ORDERED: LEVAQUIN750 MG PO (11:18)
[2019-08-11] MEDS ORDERED: IPRAT-ALBUT 0.5-3 ML UPD (11:19)
[2019-08-11] MEDS ORDERED: ALBUTEROL2.5 MG/3 M INH (11:19)
[2019-08-11] MEDS ORDERED: MUCINEX DM ER1 EAC1 PO (11:20)
[2019-08-11] MEDS ORDERED: NEURONTIN 300300 MG PO (11:20)
[2019-08-11] MEDS ORDERED: LASIX40 MG PO (11:20)
--- NOTE | 2019-08-11 12:46 | MORECARE ---
CASE MANAGEMENT DISCHARGE SUMMARY PATIENT: DALLAS MACIEL UNIT: [id number] ADM DATE: 07/25/19 AGE: 68 : 51 SEX: M ROOM/BED: D.2201 AUTHOR: ANKUR,DOC PHYSICIAN: REFERRING PHYSICIAN: VIOLETA CARVALHO MD DATE OF SERVICE: 08/11/19 Discharge Plan Patient Name: DALLAS MACIEL Facility: [facility]:[place] : 1950 Planned Disposition: Home Anticipated Discharge Date: Discharge Date: Expected LOS: Initial Reviewer: [email or web address] Initial Review Date: 07/27/2019 Generated: 08/11/19 1:46 pm Comments DCP- Discharge Planning Updated by [email or web address]: Danelle Fang on 08/11/19 11:[address] Patient Name: DALLAS MACIEL Admission Status: Elective Accout number: [id number] Admission Date: 07-25-2019 : 1950 Admission Diagnosis: Attending: VIOLETA CARVALHO Current LOS: 17 Anticipated DC Date: Planned Disposition: Home Primary Insurance: [facility] [employer]IC[employer] Discharge Planning Comments: CM SPOKE WITH [facility] AND THEY WILL NOT ACCEPT PATIENT. I HAVE THE TRANSFER BACK AGREEMENT AND HAVE CALL [facility] [place] AT [phone], SPOKE TO EDISON JETT AND WAITING SALES BRANCH MANAGER BACK REGARDING TRANSFER. Account Executive Trainee: Danelle Fang DCP- Discharge Planning Updated by [id number]: Asuncion Mackiki on 08/11/19 7:[address] Patient's states she would like a referral to [facility] in [place]. I faxed clinical to [facility] and called and left a voice mail with Katie Parks to return my call. CM will continue to follow and assist with discharge planning/needs. DCP- Discharge Planning Updated by [id number]: Kaylieurmila Smith on 08/10/19 3:[address] Patient's gave CM number for the provider line at [facility] [phone]. She stated when she spoke to the insurance company they told her if the MD would call the provider line it may speed up the process on getting authorization for the Trilogy. CM did not relay this message at this time to the MD due to it being close to 1700 and the insurance company is closing. Kaylie Smith RN, [facility] DCP- Discharge Planning Updated by [id number]: Kaylie Smith on 08/10/19 3:[address] [facility] - can't admit patient on bipap and does not have a contract [facility] for the trilogy so they cant accept. 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 Met with patient, his , and daughter to discuss the above. She stated they live close to [place] so they will agree to a custodial facility in [facility] that can accommodate his size and respiratory issues. Cm did not make calls to any facilities today. Will work on this tomorrow morning. Kaylie Smith RN,[facility] DCP- Discharge Planning Updated by [id number]: Kaylie Smith on 08/10/19 12:[address] [facility] delay we are having waiting on auth for Trilogy. She stated she would inform her chest pain coordinator to make them aware of the delay so they can make sure their auth does not . CM requested they let me know if they need additional information faxed to them. Kaylie Smith RN, [facility] DCP- Discharge Planning Updated by [id number]: Genesis Choudhury on 08/09/19 2:[address] PATIENT HAS BEEN APPROVED FOR [facility], WE HAVE TO GET TRILIOGY SET UP PRIOR TO DISCHARGE. DCP- Discharge Planning Updated by [id number]: Genesis Choudhury on 08/08/19 6:[address] sent update clinicals to [facility] for Triliogy DCP- Discharge Planning Updated by [email or web address]: Genesis Choudhury on 08/05/19 2:[address] I spoke with the patient's and she stated that she has been in contact with [facility] ([facility]) inpatient rehab and she would like her to go there. I will start that process, he is a managed medicare so he will need auth. He will need a Triliogy if he get accepted there, so spoke with about what DME she would like to use. She was not real happy with [facility]. SUMAN with [facility] for Triliogy. She was ok to keep Home [facility] DME ([facility]) I have sent the referral to [place] with [facility]. I will wait for Dr Roberts's documentation to send to [facility] to start this auth process. CM till continue to follow to assist. DCP- Discharge Planning Updated by [email or web address]: Diane Wilson on 07/27/19 7:[address] Patient Name: DALLAS MACIEL Admission Status: Elective Accout number: [id number] Admission Date: 07-25-2019 : 1950 Admission Diagnosis: Attending: VIOLETA CARVALHO Current LOS: 2 Anticipated DC Date: Planned Disposition: Home Primary Insurance: [facility] [employer] [employer] Discharge Planning Comments: CM met with patient and Jazmine at bedside after explaining CM role and obtaining verbal consent. Patient recently extubated today would only answer questions by nodding. Patient lives at home with his Jazmine where he is partially dependent with his care and plans to return there upon discharge. Patient feels this would be a safe discharge. CM discussed availability / needs of home health and medical equipment. Jazmine states that patient has Home 02 with [facility]. Jazmine did mention that it is getting harder to take care of him at home. CM spoke to her regarding physical therapy evaluation and the possibility of rehab v/s HH. Patient denies any discharge needs at this time. CM will continue to follow and assist as needed with discharge planning / needs. Account Executive Trainee: Diane Wilson DCPIA - Discharge Planning Initial Assessment Updated by [id number]: Diane Wilson on 07/27/19 7:05 pm * How many steps to enter\exit or inside your home? ramp * PCP Dexter John * [facility]acy [facility] * Preadmission Environment Home with Family * ADLs Partial Dependent * Partial ADLs (Assistance needed) Ambulation Bathing Dressing Eating Medication Management Toileting Transfers * Other Equipment HOME 02 - [facility] ELECTRIC W/C, SHOWER CHAIR -(CAN'T FIT IN SHOWER) * List name and contact numbers for known caregivers / representatives who currently or will assist patient after discharge: JAZMINE MACIEL- SPOUSE- [phone] * Verbal permission to speak to the caregivers and representatives has been obtained from the patient. N/A * Community resources currently utilized None * Additional services required to return to the preadmission environment? No * Can the patient safely return to the preadmission environment? Yes * Has this patient been hospitalized within the prior 30 days at any hospital? No Coverage Notice Reviewer: [id number] - Genesis Choudhury Notice Issued Date-Time: 08/05/2019 9:50 Notice Type: Patient Choice Letter Notice Delivered To: Family Member Relationship to Patient: Spouse Decorative Greens Cutter Name: Jazmine Delivery Method: HAND - Hand Delivered Rosa Isela Days: Prior Verbal Notification: Recipient Understood Notice: Yes Recipient Signature: Yes Med Rec Note Co-signed by Attending: Coverage Notice Comment: [facility] ([facility]) Triliogy ([facility]) Reviewer: [id number] - Asuncion Valentine Notice Issued Date-Time: 08/11/2019 8:28 Notice Type: Patient Choice Letter Notice Delivered To: Family Member Relationship to Patient: Spouse Decorative Greens Cutter Name: Jazmine Maciel Delivery Method: HAND - Hand Delivered Rosa Isela Days: Prior Verbal Notification: Recipient Understood Notice: Yes Recipient Signature: Yes Med Rec Note Co-signed by Attending: Coverage Notice Comment: Daya Morley DP export: 08/11/19 7:38 a Patient Name: DALLAS MACIEL Page 50803 at 1246 All edits/amendments must be made on the electronic document DICTATION DATE: 08/11/19 124 BUS COMPANY MANAGER: GARRETT 08/11/19 1246 RPT#: [id number] DC DATE: STATUS: ADM IN [facility] [address] [place] [address] END OF REPORT
[2019-08-11 13:08] VITALS: BP 128/68
--- NOTE | 2019-08-11 14:37 | MORECARE ---
CASE MANAGEMENT DISCHARGE SUMMARY PATIENT: DALLAS MACIEL UNIT: [id number] ADM DATE: 07/25/19 AGE: 68 : 51 SEX: M ROOM/BED: D.2201 AUTHOR: ANKUR,DOC PHYSICIAN: REFERRING PHYSICIAN: VIOLETA CARVALHO MD DATE OF SERVICE: 08/11/19 Discharge Plan Patient Name: DALLAS MACIEL Facility: [facility]:[place] : 1950 Planned Disposition: Home Anticipated Discharge Date: Discharge Date: Expected LOS: Initial Reviewer: [id number] Initial Review Date: 07/27/2019 Generated: 08/11/19 3:37 pm Comments DCP- Discharge Planning Updated by [email or web address]: Danelle Fang on 08/11/19 1:[address] Patient Name: DALLAS MACIEL Admission Status: Elective Accout number: [id number] Admission Date: 07-25-2019 : 1950 Admission Diagnosis: Attending: VIOLETA CARVALHO Current LOS: 17 Anticipated DC Date: Planned Disposition: Home Primary Insurance: [facility] MEDICARE SOLUTIONS Discharge Planning Comments: CM SPOKE WITH [facility] AND THEY WILL NOT ACCEPT PATIENT. I HAVE THE TRANSFER BACK AGREEMENT AND HAVE CALL [facility] [place] AT [phone], SPOKE TO EDISON JETT AND WAITING CERTIFIED NURSE OPERATING ROOM BACK REGARDING TRANSFER. Ornamental Bronze Worker: Danelle Fang Appended by Danelle Fang on 08/11/2019 14:31 SURVEY METHODOLOGIST: SPOKE WITH MASSIMO WESLEY AT [facility] AND DR. CARVALHO TO CALL DR. NUNEZ AT [facility]. VIEMED CALLED AND STATES WAITING ON AUTH FOR TRILOGY. WAITING FOR CALL BACKS AT THIS TIME. DCP- Discharge Planning Updated by [email or web address]: Asuncion Mackiki on 08/11/19 7:[address] Patient's states she would like a referral to [facility] in [place]. I faxed clinical to [facility] and called and left a voice mail with Katie Parks to return my call. CM will continue to follow and assist with discharge planning/needs. DCP- Discharge Planning Updated by [id number]: Kaylie Smith on 08/10/19 3:[address] Patient's gave CM number for the provider line at [facility] [phone]. She stated when she spoke to the insurance company they told her if the MD would call the provider line it may speed up the process on getting authorization for the Trilogy. CM did not relay this message at this time to the MD due to it being close to 1700 and the insurance company is closing. Kaylie Smith RN, [facility] DCP- Discharge Planning Updated by [email or web address]: Kaylie Smith on 08/10/19 3:[address] [facility] - can't admit patient on bipap and does not have a contract [facility] for the trilogy so they cant accept. [facility] Inpatient Rehab cant accommodate patient due to his bariatric size. Met with patient, his , and daughter to discuss the above. She stated they live close to [place] so they will agree to a intermediate facility in [facility] that can accommodate his size and respiratory issues. Cm did not make calls to any facilities today. Will work on this tomorrow morning. Kaylie Smith RN,[facility] DCP- Discharge Planning Updated by [id number]: Kaylie Smith on 08/10/19 12:[address] [facility] of the delay we are having waiting on auth for Trilogy. She stated she would inform her account coordinator to make them aware of the delay so they can make sure their auth does not . CM requested they let me know if they need additional information faxed to them. Kaylie Smith RN, [facility] DCP- Discharge Planning Updated by [id number]: Genesis Choudhury on 08/09/19 2:[address] PATIENT HAS BEEN APPROVED FOR [facility] INPATIENT RE[facility], WE HAVE TO GET TRILIOGY SET UP PRIOR TO DISCHARGE. DCP- Discharge Planning Updated by [email or web address]: Genesis Choudhury on 08/08/19 6:[address] sent update clinicals to [facility] for Triliogy DCP- Discharge Planning Updated by [id number]: Genesis Choudhury on 08/05/19 2:[address] I spoke with the patient's and she stated that she has been in contact with [facility] ([facility]) inpatient rehab and she would like her to go there. I will start that process, he is a managed medicare so he will need auth. He will need a Triliogy if he get accepted there, so spoke with about what DME she would like to use. She was not real happy with [facility]. SUMAN with [facility] for Triliogy. She was ok to keep [facility] ([facility]) I have sent the referral to [place] with [facility]. I will wait for Dr Roberts's documentation to send to [facility] to start this auth process. CM till continue to follow to assist. DCP- Discharge Planning Updated by [id number]: Diane Wilson on 07/27/19 7:[address] Patient Name: DALLAS MACIEL Admission Status: Elective Accout number: [id number] Admission Date: 07-25-2019 : 1950 Admission Diagnosis: Attending: VIOLETA CARVALHO Current LOS: 2 Anticipated DC Date: Planned Disposition: Home Primary Insurance: [employer] MEDICARE SOLUTIONS Discharge Planning Comments: CM met with patient and Jazmine at bedside after explaining CM role and obtaining verbal consent. Patient recently extubated today would only answer questions by nodding. Patient lives at home with his Jazmine where he is partially dependent with his care and plans to return there upon discharge. Patient feels this would be a safe discharge. CM discussed availability / needs of home health and medical equipment. Jazmine states that patient has Home 02 with [facility]. Jazmine did mention that it is getting harder to take care of him at home. CM spoke to her regarding physical therapy evaluation and the possibility of rehab v/s HH. Patient denies any discharge needs at this time. CM will continue to follow and assist as needed with discharge planning / needs. Ornamental Bronze Worker: Diane Wilson DCPIA - Discharge Planning Initial Assessment Updated by [email or web address]: Diane Wilson on 07/27/19 7:05 pm * How many steps to enter\exit or inside your home? ramp * PCP Dexter John * [facility] * Preadmission Environment Home with Family * ADLs Partial Dependent * Partial ADLs (Assistance needed) Ambulation Bathing Dressing Eating Medication Management Toileting Transfers * Other Equipment HOME 02 - [facility] ELECTRIC W/C, SHOWER CHAIR -(CAN'T FIT IN SHOWER) * List name and contact numbers for known caregivers / representatives who currently or will assist patient after discharge: JAZMINE MACIEL- SPOUSE- [phone] * Verbal permission to speak to the caregivers and representatives has been obtained from the patient. N/A * Community resources currently utilized None * Additional services required to return to the preadmission environment? No * Can the patient safely return to the preadmission environment? Yes * Has this patient been hospitalized within the prior 30 days at any hospital? No Coverage Notice Reviewer: [id number] Irma Choudhury Notice Issued Date-Time: 08/05/2019 9:50 Notice Type: Patient Choice Letter Notice Delivered To: Family Member Relationship to Patient: Spouse Chief Accountant Name: Jazmine Delivery Method: HAND - Hand Delivered Rosa Isela Days: Prior Verbal Notification: Recipient Understood Notice: Yes Recipient Signature: Yes Med Rec Note Co-signed by Attending: Coverage Notice Comment: [facility] ([facility]) Triliogy ([facility]) Reviewer: [id number] Irma Valentine Notice Issued Date-Time: 08/11/2019 8:28 Notice Type: Patient Choice Letter Notice Delivered To: Family Member Relationship to Patient: Spouse Chief Accountant Name: Jazmine Maciel Delivery Method: HAND - Hand Delivered Rosa Isela Days: Prior Verbal Notification: Recipient Understood Notice: Yes Recipient Signature: Yes Med Rec Note Co-signed by Attending: Coverage Notice Comment: Daya Morley DP export: 08/11/19 11:46 a Patient Name: DALLAS MACIEL Page [phone] at 1437 All edits/amendments must be made on the electronic document DICTATION DATE: 08/11/191436 FRONT DESK OFFICER: GARRETT 08/11/191436 RPT#: [id number] DC DATE: STATUS: ADM IN [facility] [address] [place] [address] END OF REPORT
--- NOTE | 2019-08-11 15:10 | MORECARE ---
CASE MANAGEMENT DISCHARGE SUMMARY PATIENT: DALLAS MACIEL UNIT: [id number] ADM DATE: 07/25/19 AGE: 68 : 51 SEX: M ROOM/BED: D.2201 AUTHOR: ANKUR,DOC PHYSICIAN: REFERRING PHYSICIAN: VIOLETA CARVALHO MD DATE OF SERVICE: 08/11/19 Discharge Plan Patient Name: DALLAS MACIEL Facility: [facility]:[place] : 1950 Planned Disposition: Home Anticipated Discharge Date: Discharge Date: Expected LOS: Initial Reviewer: [id number] Initial Review Date: 07/27/2019 Generated: 08/11/19 4:09 pm Comments DCP- Discharge Planning Updated by [id number]: Danelle Fang on 08/11/19 1:[address] Patient Name: DALLAS MACIEL Admission Status: Elective Accout number: [id number] Admission Date: 07-25-2019 : 1950 Admission Diagnosis: Attending: VIOLETA CARVALHO Current LOS: 17 Anticipated DC Date: Planned Disposition: Home Primary Insurance: [facility] MEDICARE SOLUTIONS Discharge Planning Comments: CM SPOKE WITH [facility] AND THEY WILL NOT ACCEPT PATIENT. I HAVE THE TRANSFER BACK AGREEMENT AND HAVE CALL [facility] IN [place] AT [phone], SPOKE TO EDISON JETT AND WAITING FIRE PATROL BACK REGARDING TRANSFER. Cooking Appliance Repair Technician: Danelle Fang Appended by Danelle Fang on 08/11/2019 14:31 DRAMATIC TEACHER: SPOKE WITH MASSIMO WESLEY AT [facility] AND DR. CARVALHO TO CALL DR. NUNEZ AT [facility]. VIEMED CALLED AND STATES WAITING ON AUTH FOR TRILOGY. WAITING FOR CALL BACKS AT THIS TIME. DCP- Discharge Planning Updated by [email or web address]: Asuncion Mackiki on 08/11/19 7:[address] Patient's states she would like a referral to [facility] in [place]. I faxed clinical to [facility] and called and left a voice mail with Katie Parks to return my call. CM will continue to follow and assist with discharge planning/needs. DCP- Discharge Planning Updated by [email or web address]: Kaylie Smith on 08/10/19 3:[address] Patient's gave CM number for the provider line at [facility] [phone]. She stated when she spoke to the insurance company they told her if the MD would call the provider line it may speed up the process on getting authorization for the Trilogy. CM did not relay this message at this time to the MD due to it being close to 1700 and the insurance company is closing. Kaylie Smith RN, [facility] DCP- Discharge Planning Updated by [id number]: Kaylie Smith on 08/10/19 3:[address] [facility] - can't admit patient on bipap and does not have a contract [facility] for the trilogy so they cant accept. [facility] Inpatient Rehab cant accommodate patient due to his bariatric size. Met with patient, his , and daughter to discuss the above. She stated they live close to [place] so they will agree to a ch[facility] facility [facility] that can accommodate his size and respiratory issues. Cm did not make calls to any facilities today. Will work on this tomorrow morning. Kaylie Smith RN,[facility] DCP- Discharge Planning Updated by [email or web address]: Kaylie Smith on 08/10/19 12:[address] [facility] informing her of the delay we are having waiting on auth for Trilogy. She stated she would inform her weatherization coordinator to make them aware of the delay so they can make sure their auth does not . CM requested they let me know if they need additional information faxed to them. Kaylie Smith RN, [facility] DCP- Discharge Planning Updated by [email or web address]: Genesis Choudhury on 08/09/19 2:[address] PATIENT HAS BEEN APPROVED FOR [facility] INPATIENT REH[facility], WE HAVE TO GET TRILIOGY SET UP PRIOR TO DISCHARGE. DCP- Discharge Planning Updated by [id number]: Genesis Choudhury on 08/08/19 6:[address] sent update clinicals to [facility] for Triliogy DCP- Discharge Planning Updated by [email or web address]: Genesis Choudhury on 08/05/19 2:[address] I spoke with the patient's and she stated that she has been in contact with [facility] ([facility]) inpatient rehab and she would like her to go there. I will start that process, he is a managed medicare so he will need auth. He will need a Triliogy if he get accepted there, so spoke with about what DME she would like to use. She was not real happy with [facility]. SUMAN with [facility] for Triliogy. She was ok to keep [facility] ([facility]) I have sent the referral to [place] with [facility]. I will wait for Dr Roberts's documentation to send to [facility] to start this auth process. CM till continue to follow to assist. DCP- Discharge Planning Updated by [id number]: Diane Wilson on 07/27/19 7:[address] Patient Name: DALLAS MACIEL Admission Status: Elective Accout number: [id number] Admission Date: 07-25-2019 : 1950 Admission Diagnosis: Attending: VIOLETA CARVALHO Current LOS: 2 Anticipated DC Date: Planned Disposition: Home Primary Insurance: [employer] MED[employer]UTIONS Discharge Planning Comments: CM met with patient and Jazmine at bedside after explaining CM role and obtaining verbal consent. Patient recently extubated today would only answer questions by nodding. Patient lives at home with his Jazmine where he is partially dependent with his care and plans to return there upon discharge. Patient feels this would be a safe discharge. CM discussed availability / needs of home health and medical equipment. Jazmine states that patient has Home 02 with [facility]. Jazmine did mention that it is getting harder to take care of him at home. CM spoke to her regarding physical therapy evaluation and the possibility of rehab v/s HH. Patient denies any discharge needs at this time. CM will continue to follow and assist as needed with discharge planning / needs. Cooking Appliance Repair Technician: Diane Wilson DCPIA - Discharge Planning Initial Assessment Updated by [id number]: Diane Wilson on 07/27/19 7:05 pm * How many steps to enter\exit or inside your home? ramp * PCP Dexter John * [facility]acy [facility] * Preadmission Environment Home with Family * ADLs Partial Dependent * Partial ADLs (Assistance needed) Ambulation Bathing Dressing Eating Medication Management Toileting Transfers * Other Equipment HOME 02 - [facility] ELECTRIC W/C, SHOWER CHAIR -(CAN'T FIT IN SHOWER) * List name and contact numbers for known caregivers / representatives who currently or will assist patient after discharge: AJZMINE MACIEL- SPOUSE- [phone] * Verbal permission to speak to the caregivers and representatives has been obtained from the patient. N/A * Community resources currently utilized None * Additional services required to return to the preadmission environment? No * Can the patient safely return to the preadmission environment? Yes * Has this patient been hospitalized within the prior 30 days at any hospital? No External Providers External Provider: OTHER-OTHER Next Contact Date: Service Request Date: Service Type: Resolution: Reviewer: Comments: Coverage Notice Reviewer: [id number] - Genesis Choudhury Notice Issued Date-Time: 08/05/2019 9:50 Notice Type: Patient Choice Letter Notice Delivered To: Family Member Relationship to Patient: Spouse Food Processing Chemist Name: Jazmine Delivery Method: HAND - Hand Delivered Rosa Isela Days: Prior Verbal Notification: Recipient Understood Notice: Yes Recipient Signature: Yes Med Rec Note Co-signed by Attending: Coverage Notice Comment: [facility] ([facility]) Triliogy ([facility]) Reviewer: [id number] Irma Valentine Notice Issued Date-Time: 08/11/2019 8:28 Notice Type: Patient Choice Letter Notice Delivered To: Family Member Relationship to Patient: Spouse Food Processing Chemist Name: Jazmine Maciel Delivery Method: HAND - Hand Delivered Rosa Isela Days: Prior Verbal Notification: Recipient Understood Notice: Yes Recipient Signature: Yes Med Rec Note Co-signed by Attending: Coverage Notice Comment: Daya Morley DP export: 08/11/19 1:37 p Patient Name: DALLAS MACIEL Page [phone] at 1510 All edits/amendments must be made on the electronic document DICTATION DATE: 08/11/19 1509 PAYABLE REPRESENTATIVE: GARRETT 08/11/19 1509 RPT#: [id number] DC DATE: STATUS: ADM IN [facility] [address] [place] [address] END OF REPORT
--- NOTE | 2019-08-11 15:11 | NUR ---
OT NOTE: PT COMPLETED BED MOB TASKS WITH SBA USING RAILS. PT COMPLETED LB HYGIENE TASKS WITH [facility] [place]. THANK YOU, JABIER SKY
--- NOTE | 2019-08-11 15:19 | MORECARE ---
CASE MANAGEMENT DISCHARGE SUMMARY PATIENT: DALLAS MACIEL UNIT: [id number] ADM DATE: 07/25/19 AGE: 68 : 51 SEX: M ROOM/BED: D.2201 AUTHOR: ANKUR,DOC PHYSICIAN: REFERRING PHYSICIAN: VIOLETA CARVALHO MD DATE OF SERVICE: 08/11/19 Discharge Plan Patient Name: DALLAS MACIEL Facility: [facility]:[place] : 1950 Planned Disposition: Home Anticipated Discharge Date: Discharge Date: Expected LOS: Initial Reviewer: [email or web address] Initial Review Date: 07/27/2019 Generated: 08/11/19 4:19 pm Comments DCP- Discharge Planning Updated by [email or web address]: Danelle Fang on 08/11/19 2:[address] Patient Name: DALLAS MACIEL Admission Status: Elective Accout number: [id number] Admission Date: 07-25-2019 : 1950 Admission Diagnosis: Attending: VIOLETA CARVALHO Current LOS: 17 Anticipated DC Date: Planned Disposition: Home Primary Insurance: [facility] MEDICARE SOLUTIONS Discharge Planning Comments: CM SPOKE WITH [facility] AND THEY WILL NOT ACCEPT PATIENT. I HAVE THE TRANSFER BACK AGREEMENT AND HAVE CALL [facility] IN [place] AT [phone], SPOKE TO EDISON JETT AND WAITING VIOLIN MECHANIC BACK REGARDING TRANSFER. Head Chopper: Danelle Fang Appended by Danelle Fang on 08/11/2019 14:31 LACER AND TIER: SPOKE WITH MASSIMO WESLEY AT [facility] AND DR. CARVALHO TO CALL DR. NUNEZ AT [facility]. VIEMED CALLED AND STATES WAITING ON AUTH FOR TRILOGY. WAITING FOR CALL BACKS AT THIS TIME. Appended by Danelle Fang on 08/11/2019 15:15 LACER AND TIER: AFTER SPEAKING WITH DR. CARVALHO, I HAVE CONTACTED TASHA AT [facility] [phone] FOR PATIENT REFERRAL, I HAVE FAXED DOCUMENTS TO THEM AT [phone]. WAITING VIOLIN MECHANIC BACK, TASHA STATES WILL HAVE TO GET AUTH AND ANTICIPATING TOMORROW ADMIT TO SWING IF ALL IS APPROVED. CM TO FOLLOW. DCP- Discharge Planning Updated by [id number]: Asuncion Valentine on 08/11/19 7:[address] Patient's states she would like a referral to [facility] in [place]. I faxed clinical to [facility] and called and left a voice mail with Katie Charly to return my call. CM will continue to follow and assist with discharge planning/needs. DCP- Discharge Planning Updated by [email or web address]: Kaylie Smith on 08/10/19 3:[address] Patient's gave CM number for the provider line at [facility] [phone]. She stated when she spoke to the insurance company they told her if the MD would call the provider line it may speed up the process on getting authorization for the Trilogy. CM did not relay this message at this time to the MD due to it being close to 1700 and the insurance company is closing. Kaylie Smith RN, [facility] DCP- Discharge Planning Updated by [email or web address]: Kaylie Smith on 08/10/19 3:[address] [facility] - can't admit patient on bipap and [facility] not have a [facility] so they cant accept. [facility] Inpatient Rehab cant accommodate patient due to his bariatric size. Met with patient, his , and daughter to discuss the above. She stated they live close to [place] so they will agree to a assisted facility in [place] or [place] that can accommodate his size and respiratory issues. Cm did not make calls to any facilities today. Will work on this tomorrow morning. Kaylie Smith RN,[facility] DCP- Discharge Planning Updated by [id number]: Kaylie Smith on 08/10/19 12:[address] Spoke to Chelly with [facility] rehab informing her of the delay we are having waiting on auth for Trilogy. She stated she would inform her admissions dean to make them aware of the delay so they can make sure their auth does not . CM requested they let me know if they need additional information faxed to them. Kaylie Smith RN, [facility] DCP- Discharge Planning Updated by [email or web address]: Genesis Choudhury on 08/09/19 2:[address] PATIENT HAS BEEN APPROVED FOR [facility], WE HAVE TO GET TRILIOGY SET UP PRIOR TO DISCHARGE. DCP- Discharge Planning Updated by [id number]: Genesis Choudhury on 08/08/19 6:[address] sent update clinicals to [facility] for Triliogy DCP- Discharge Planning Updated by [email or web address]: Genesis Choudhury on 08/05/19 2:[address] I spoke with the patient's and she stated that she has been in contact with [facility]) inpatient rehab and she would like her to go there. I will start that process, he is a managed medicare so he will need auth. He will need a Triliogy if he get accepted there, so spoke with about what DME she would like to use. She was not real happy with [facility]. SUMAN with [facility] for Triliogy. She was ok to keep [facility] ([facility]) I have sent the referral to [place] with [facility]. I will wait for Dr Roberts's documentation to send to [facility] to start this auth process. CM till continue to follow to assist. DCP- Discharge Planning Updated by [id number]: Diane Wilson on 07/27/19 7:[address] Patient Name: DALLAS MACIEL Admission Status: Elective Accout number: [id number] Admission Date: 07-25-2019 : 1950 Admission Diagnosis: Attending: VIOLETA CARVALHO Current LOS: 2 Anticipated DC Date: Planned Disposition: Home Primary Insurance: [employer] MED[employer]ARE SOLUTIONS Discharge Planning Comments: CM met with patient and Jazmine at bedside after explaining CM role and obtaining verbal consent. Patient recently extubated today would only answer questions by nodding. Patient lives at home with his Jazmine where he is partially dependent with his care and plans to return there upon discharge. Patient feels this would be a safe discharge. CM discussed availability / needs of home health and medical equipment. Jazmine states that patient has Home 02 with [facility]. Jazmine did mention that it is getting harder to take care of him at home. CM spoke to her regarding physical therapy evaluation and the possibility of rehab v/s HH. Patient denies any discharge needs at this time. CM will continue to follow and assist as needed with discharge planning / needs. Head Chopper: Diane Wilson DCPIA - Discharge Planning Initial Assessment Updated by [id number]: Diane Wilson on 07/27/19 7:05 pm * How many steps to enter\exit or inside your home? ramp * PCP Dexter John * [facility]acy [facility] * Preadmission Environment Home with Family * ADLs Partial Dependent * Partial ADLs (Assistance needed) Ambulation Bathing Dressing Eating Medication Management Toileting Transfers * Other Equipment HOME 02 - [facility] [place] [facility] ELECTRIC W/C, SHOWER CHAIR -(CAN'T FIT IN SHOWER) * List name and contact numbers for known caregivers / representatives who currently or will assist patient after discharge: JAZMINE MACIEL- SPOUSE- [phone] * Verbal permission to speak to the caregivers and representatives has been obtained from the patient. N/A * Community resources currently utilized None * Additional services required to return to the preadmission environment? No * Can the patient safely return to the preadmission environment? Yes * Has this patient been hospitalized within the prior 30 days at any hospital? No Coverage Notice Reviewer: [id number] Irma Choudhury Notice Issued Date-Time: 08/05/2019 9:50 Notice Type: Patient Choice Letter Notice Delivered To: Family Member Relationship to Patient: Spouse Technology Applications Teacher Name: Jazmine Delivery Method: HAND - Hand Delivered Rosa Isela Days: Prior Verbal Notification: Recipient Understood Notice: Yes Recipient Signature: Yes Med Rec Note Co-signed by Attending: Coverage Notice Comment: [facility] ([facility]) Triliogy ([facility]) Reviewer: [id number] Irma Valentine Notice Issued Date-Time: 08/11/2019 8:28 Notice Type: Patient Choice Letter Notice Delivered To: Family Member Relationship to Patient: Spouse Technology Applications Teacher Name: Jazmine Maciel Delivery Method: HAND - Hand Delivered Rosa Isela Days: Prior Verbal Notification: Recipient Understood Notice: Yes Recipient Signature: Yes Med Rec Note Co-signed by Attending: Coverage Notice Comment: [facility] Last DP export: 08/11/19 2:10 p Patient Name: DALLAS MACIEL Page [id number] at 1512 All edits/amendments must be made on the electronic document DICTATION DATE: 08/11/191518 DRILL RUNNER HELPER: GARRETT 08/11/191518 RPT#: [id number] DC DATE: STATUS: ADM IN [facility] [address] [place] [address] END OF REPORT
--- NOTE | 2019-08-11 17:12 | NUR ---
PATIENT CO OF PAIN. ASKED HIM IF HE WANTED TO REPOSITION AND SIT ON THE SIDE OF THE BED. HE SAID THAT WAS FINE AND "FEELS BETTER." WENT OUT TO THE TRUCK FOR SOMETHING. CL IN REACH. WCTM
[2019-08-11 17:42] VITALS: BP 141/73
--- NOTE | 2019-08-11 19:23 | NUR ---
LYING IN BED WITH EYES CLOSED. AT BEDSIDE. ABLE TO VOICE ALL NEEDS. DENIES ANY PAIN OR ACUTE DISTRESS AT THIS TIME. O2 3L VIA NC. WILL NOTE ANY CHANGE.
[2019-08-11 20:00] VITALS: BP 130/65
--- NOTE | 2019-08-12 02:50 | NUR ---
I have reviewed this patient and I concur with the Shift Assessment completed by the Licensed Practical Nurse today this shift.
[2019-08-12 04:00] VITALS: BP 128/57
[2019-08-12 06:32] LABS: BASOPHILS 0.4 % (0-2); EOSINOPHILS 3.1 % (0-7); HEMATOCRIT 48.4 % (42.0-54.0); HEMOGLOBIN 15.1 g/dL (13.5-17.5); IMMATURE GRANULOCYTES 0.7 % (0-5); LYMPHOCYTES 45.3 % (15-50); MCH 29.8 pg (26.0-34.0); MCHC 31.2 g/dL (31.0-37.0); MCV 95.5 fL (80.0-100.0); MEAN PLATELET VOLUME 12.5 fL (7.4-10.4); MONOCYTES 8.5 % (2-11); PLATELET COUNT 169 10x3/uL (130-400); RBC 5.07 10x6/uL (4.20-6.10); RDW 14.6 % (11.5-14.5)
[2019-08-12 06:46] LABS: ANION GAP 7.7 mmol/L (8-16); CALCIUM 8.7 mg/dL (8.5-10.1); CREATININE - SERUM 1.1 mg/dL (0.6-1.3); POTASSIUM - SERUM 3.7 mmol/L (3.5-5.1)
[2019-08-12 08:34] VITALS: BP 136/58
--- NOTE | 2019-08-12 08:57 | NUR ---
Nutrition follow-up: Diet: Regular PO intake 100% of all meals Labs reviewed Wt: 436# +BM RDN following.
--- NOTE | 2019-08-12 11:02 | NUR ---
IN ROOM. NICKIE BRANHAM ASSISTED WITH PROBLEM WITH BIPAP. CL IN REACH. NO FURTHER NEEDS AT THIS TIME. PATIENT LAYING ON RIGHT SIDE.
--- NOTE | 2019-08-12 12:10 | MORECARE ---
CASE MANAGEMENT DISCHARGE SUMMARY PATIENT: DALLAS MACIEL UNIT: [id number] ADM DATE: 07/25/19 AGE: 68 : 51 SEX: M ROOM/BED: D.2201 AUTHOR: ANKUR,DOC PHYSICIAN: REFERRING PHYSICIAN: VIOLETA CARVALHO MD DATE OF SERVICE: 08/12/19 Discharge Plan Patient Name: DALLAS MACIEL Facility: [facility]:[place] : 1950 Planned Disposition: Home Anticipated Discharge Date: Discharge Date: Expected LOS: Initial Reviewer: [id number] Initial Review Date: 07/27/2019 Generated: 08/12/19 1:10 pm Comments DCP- Discharge Planning Updated by [id number]: Danelle Fang on 08/11/19 2:[address] Patient Name: DALLAS MACIEL Admission Status: Elective Accout number: [id number] Admission Date: 07-25-2019 : 1950 Admission Diagnosis: Attending: VIOLETA CARVALHO Current LOS: 17 Anticipated DC Date: Planned Disposition: Home Primary Insurance: [facility] MEDICARE SOLUTIONS Discharge Planning Comments: CM SPOKE WITH [facility] AND THEY WILL NOT ACCEPT PATIENT. I HAVE THE TRANSFER BACK AGREEMENT AND HAVE CALL [facility] IN [place] AT [phone], SPOKE TO EDISON JETT AND WAITING DISPATCHER ELECTRIC POWER BACK REGARDING TRANSFER. Movable Bulkhead Installer: Danelle Fang Appended by Danelle Fang on 08/11/2019 14:31 LIABILITY CLAIMS EXAMINER: SPOKE WITH MASSIMO WESLEY AT [facility] AND DR. CARVALHO TO CALL DR. NUNEZ AT [facility]. VIEMED CALLED AND STATES WAITING ON AUTH FOR TRILOGY. WAITING FOR CALL BACKS AT THIS TIME. Appended by Danelle Fang on 08/11/2019 15:15 LIABILITY CLAIMS EXAMINER: AFTER SPEAKING WITH DR. CARVALHO, I HAVE CONTACTED TASHA AT [facility] [phone] FOR PATIENT REFERRAL, I HAVE FAXED DOCUMENTS TO THEM AT [phone]. WAITING DISPATCHER ELECTRIC POWER BACK, TASHA STATES WILL HAVE TO GET AUTH AND ANTICIPATING TOMORROW ADMIT TO SWING IF ALL IS APPROVED. CM TO FOLLOW. DCP- Discharge Planning Updated by [id number]: Asuncion Valentine on 08/11/19 7:[address] Patient's states she would like a referral to [facility] in [place]. I faxed clinical to [facility] and called and left a voice mail with Katie Charly to return my call. CM will continue to follow and assist with discharge planning/needs. DCP- Discharge Planning Updated by [id number]: Kaylie Smith on 08/10/19 3:[address] Patient's gave CM number for the provider line at [facility] [phone]. She stated when she spoke to the insurance company they told her if the MD would call the provider line it may speed up the process on getting authorization for the Trilogy. CM did not relay this message at this time to the MD due to it being close to 1700 and the insurance company is closing. Kaylie Smith RN, [facility] DCP- Discharge Planning Updated by [id number]: Kaylie Smith on 08/10/19 3:[address] [facility] Re[facility] - can't admit patient on bipap and does not have a [facility] for the [facility] so they cant accept. [facility] Inpatient Rehab cant accommodate patient due to his bariatric size. Met with patient, his , and daughter to discuss the above. She stated they live close to [place] so they will agree to a detention facility in [place] or [place] that can accommodate his size and respiratory issues. Cm did not make calls to any facilities today. Will work on this tomorrow morning. Kaylie Smith RN,[facility] DCP- Discharge Planning Updated by [email or web address]: Kaylie Smith on 08/10/19 12:[address] Spoke to Chelly with [facility] rehab informing her of the delay we are having waiting on auth for Trilogy. She stated she would inform her hospital admissions officer to make them aware of the delay so they can make sure their auth does not . CM requested they let me know if they need additional information faxed to them. Kaylie Smith RN, [facility] DCP- Discharge Planning Updated by [id number]: Genesis Choudhury on 08/09/19 2:[address] PATIENT HAS BEEN APPROVED FOR [facility], WE HAVE TO GET TRILIOGY SET UP PRIOR TO DISCHARGE. DCP- Discharge Planning Updated by [email or web address]: Genesis Choudhury on 08/08/19 6:[address] sent update clinicals to [facility] for Triliogy DCP- Discharge Planning Updated by [email or web address]: Genesis Choudhury on 08/05/19 2:[address] I spoke with the patient's and she stated that she has been in contact with [facility]) inpatient rehab and she would like her to go there. I will start that process, he is a managed medicare so he will need auth. He will need a Triliogy if he get accepted there, so spoke with about what DME she would like to use. She was not real happy with [facility]. SUMAN with [facility] for Triliogy. She was ok to keep [facility] ([facility]) I have sent the referral to [place] with [facility]. I will wait for Dr Roberts's documentation to send to [facility] to start this auth process. CM till continue to follow to assist. DCP- Discharge Planning Updated by [id number]: Diane Wilson on 07/27/19 7:[address] Patient Name: DALLAS MACIEL Admission Status: Elective Accout number: [id number] Admission Date: 07-25-2019 : 1950 Admission Diagnosis: Attending: VIOLETA CARVALHO Current LOS: 2 Anticipated DC Date: Planned Disposition: Home Primary Insurance: [employer]UTIONS Discharge Planning Comments: CM met with patient and Jazmine at bedside after explaining CM role and obtaining verbal consent. Patient recently extubated today would only answer questions by nodding. Patient lives at home with his Jazmine where he is partially dependent with his care and plans to return there upon discharge. Patient feels this would be a safe discharge. CM discussed availability / needs of home health and medical equipment. Jazmine states that patient has Home 02 with [facility]. Jazmine did mention that it is getting harder to take care of him at home. CM spoke to her regarding physical therapy evaluation and the possibility of rehab v/s HH. Patient denies any discharge needs at this time. CM will continue to follow and assist as needed with discharge planning / needs. Movable Bulkhead Installer: Diane Wilson DCPIA - Discharge Planning Initial Assessment Updated by [id number]: Diane Wilson on 07/27/19 7:05 pm * How many steps to enter\exit or inside your home? ramp * PCP Dexter John * Pharmacy [facility] * Preadmission Environment Home with Family * ADLs Partial Dependent * Partial ADLs (Assistance needed) Ambulation Bathing Dressing Eating Medication Management Toileting Transfers * Other Equipment HOME 02 - [facility] ELECTRIC W/C, SHOWER CHAIR -(CAN'T FIT IN SHOWER) * List name and contact numbers for known caregivers / representatives who currently or will assist patient after discharge: JAZMINE MACIEL- SPOUSE- [phone] * Verbal permission to speak to the caregivers and representatives has been obtained from the patient. N/A * Community resources currently utilized None * Additional services required to return to the preadmission environment? No * Can the patient safely return to the preadmission environment? Yes * Has this patient been hospitalized within the prior 30 days at any hospital? No Coverage Notice Reviewer: [email or web address] Irma Choudhury Notice Issued Date-Time: 08/05/2019 9:50 Notice Type: Patient Choice Letter Notice Delivered To: Family Member Relationship to Patient: Spouse Perinatal Coordinator Name: Jazmine Delivery Method: HAND - Hand Delivered Rosa Isela Days: Prior Verbal Notification: Recipient Understood Notice: Yes Recipient Signature: Yes Med Rec Note Co-signed by Attending: Coverage Notice Comment: [facility] ([facility]) Tr[facility]ogy ([facility]) Reviewer: [id number] Irma Valentine Notice Issued Date-Time: 08/11/2019 8:28 Notice Type: Patient Choice Letter Notice Delivered To: Family Member Relationship to Patient: Spouse Perinatal Coordinator Name: Jazmine Maciel Delivery Method: HAND - Hand Delivered Rosa Isela Days: Prior Verbal Notification: Recipient Understood Notice: Yes Recipient Signature: Yes Med Rec Note Co-signed by Attending: Coverage Notice Comment: [facility] Last DP export: 08/11/19 2:19 p Patient Name: DALLAS MACIEL Page [id number] at 1210 All edits/amendments must be made on the electronic document DICTATION DATE: 08/12/191208 FORESTRY FIRE AID: GARRETT 08/12/191208 RPT#: [id number] DC DATE: STATUS: ADM IN [facility] [address] [place] [address] END OF REPORT
--- NOTE | 2019-08-12 15:18 | NUR ---
BATH GIVEN. LINENS CHANGED. DRESSING CHANGED ON LEFT BUTTOCK. WOUND IS SMALLER AND NOT RED. CL IN REACH. IN ROOM. WCTM
--- NOTE | 2019-08-12 15:53 | MORECARE ---
CASE MANAGEMENT DISCHARGE SUMMARY PATIENT: DALLAS MACIEL UNIT: [id number] ADM DATE: 07/25/19 AGE: 68 : 51 SEX: M ROOM/BED: D.2201 AUTHOR: ANKUR,DOC PHYSICIAN: REFERRING PHYSICIAN: VIOLETA CARVALHO MD DATE OF SERVICE: 08/12/19 Discharge Plan Patient Name: DALLAS MACIEL Facility: [facility]:[place] : 1950 Planned Disposition: Home Anticipated Discharge Date: Discharge Date: Expected LOS: Initial Reviewer: [id number] Initial Review Date: 07/27/2019 Generated: 08/12/19 4:53 pm Comments DCP- Discharge Planning Updated by [id number]: Danelle Fang on 08/11/19 2:[address] Patient Name: DALLAS MACIEL Admission Status: Elective Accout number: [id number] Admission Date: 07-25-2019 : 1950 Admission Diagnosis: Attending: VIOLETA CARVALHO Current LOS: 17 Anticipated DC Date: Planned Disposition: Home Primary Insurance: [facility] MEDICARE SOLUTIONS Discharge Planning Comments: CM SPOKE WITH [facility] AND THEY WILL NOT ACCEPT PATIENT. I HAVE THE TRANSFER BACK AGREEMENT AND HAVE CALL [facility] IN [place] AT [phone], SPOKE TO EDISON JETT AND WAITING SECURITY PROFESSIONALS BACK REGARDING TRANSFER. Utility Aircrewman: Danelle Fang Appended by Danelle Fang on 08/11/2019 14:31 STRATEGIC PLANNING ANALYST: SPOKE WITH MASSIMO WESLEY AT [facility] AND DR. CARVALHO TO CALL DR. NUNEZ AT [facility]. [facility] CALLED AND STATES WAITING ON AUTH FOR TRILOGY. WAITING FOR CALL BACKS AT THIS TIME. Appended by Danelle Fang on 08/11/2019 15:15 STRATEGIC PLANNING ANALYST: AFTER SPEAKING WITH DR. CARVALHO, I HAVE CONTACTED TASHA AT [facility] [phone] FOR PATIENT REFERRAL, I HAVE FAXED DOCUMENTS TO THEM AT [phone]. WAITING SECURITY PROFESSIONALS BACK, TASHA STATES WILL HAVE TO GET AUTH AND ANTICIPATING TOMORROW ADMIT TO SWING IF ALL IS APPROVED. CM TO FOLLOW. DCP- Discharge Planning Updated by [email or web address]: Asuncion Valentine on 08/11/19 7:[address] Patient's states she would like a referral to [facility] in [place]. I faxed clinical to [facility] and called and left a voice mail with Katie Charly to return my call. CM will continue to follow and assist with discharge planning/needs. DCP- Discharge Planning Updated by [id number]: Kaylie Smith on 08/10/19 3:[address] Patient's gave CM number for the provider line at [facility] [phone]. She stated when she spoke to the insurance company they told her if the MD would call the provider line it may speed up the process on getting authorization for the Trilogy. CM did not relay this message at this time to the MD due to it being close to 1700 and the insurance company is closing. Kaylie Smith RN, [facility] DCP- Discharge Planning Updated by [id number]: Kaylie Smith on 08/10/19 3:[address] [facility] - can't admit patient on bipap and does not have a contract [facility] for the trilogy so they cant accept. [facility] Inpatient Rehab cant accommodate patient due to his bariatric size. Met with patient, his , and daughter to discuss the above. She stated they live close to [place] so they will agree to a mcc facility in [place] or [place] that can accommodate his size and respiratory issues. Cm did not make calls to any facilities today. Will work on this tomorrow morning. Kaylie Smith RN,[facility] DCP- Discharge Planning Updated by [email or web address]: Kaylie Smith on 08/10/19 12:[address] Spoke to Chelly with [facility] rehab informing her of the delay we are having waiting on auth for Trilogy. She stated she would inform her sample coordinator to make them aware of the delay so they can make sure their auth does not . CM requested they let me know if they need additional information faxed to them. Kaylie Smith RN, [facility] DCP- Discharge Planning Updated by [id number]: Genesis Choudhury on 08/09/19 2:[address] PATIENT HAS BEEN APPROVED FOR [facility], WE HAVE TO GET TRILIOGY SET UP PRIOR TO DISCHARGE. DCP- Discharge Planning Updated by [id number]: Genesis Choudhury on 08/08/19 6:[address] sent update clinicals to [facility] for Triliogy DCP- Discharge Planning Updated by [id number]: Genesis Choudhury on 08/05/19 2:[address] I spoke with the patient's and she stated that she has been in contact with [facility] inpatient rehab and she would like her to go there. I will start that process, he is a managed medicare so he will need auth. He will need a Triliogy if he get accepted there, so spoke with about what DME she would like to use. She was not real happy with [facility]. [facility] with [facility] for Triliogy. She was ok to keep [facility] ([facility]) I have sent the referral to [place] with [facility]. I will wait for Dr Roberts's documentation to send to [facility] to start this auth process. CM till continue to follow to assist. DCP- Discharge Planning Updated by [id number]: Diane Wilson on 07/27/19 7:[address] Patient Name: DALLAS MACIEL Admission Status: Elective Accout number: [id number] Admission Date: 07-25-2019 : 1950 Admission Diagnosis: Attending: VIOLETA CARVALHO Current LOS: 2 Anticipated DC Date: Planned Disposition: Home Primary Insurance: [employer] MEDICARE SOLUTIONS Discharge Planning Comments: CM met with patient and Jazmine at bedside after explaining CM role and obtaining verbal consent. Patient recently extubated today would only answer questions by nodding. Patient lives at home with his Jazmine where he is partially dependent with his care and plans to return there upon discharge. Patient feels this would be a safe discharge. CM discussed availability / needs of home health and medical equipment. Jazmine states that patient has Home 02 with [facility]. Jazmine did mention that it is getting harder to take care of him at home. CM spoke to her regarding physical therapy evaluation and the possibility of rehab v/s HH. Patient denies any discharge needs at this time. CM will continue to follow and assist as needed with discharge planning / needs. Utility Aircrewman: Diane Wilson DCPIA - Discharge Planning Initial Assessment Updated by [email or web address]: Diane Wilson on 07/27/19 7:05 pm * How many steps to enter\exit or inside your home? ramp * PCP [facility] * Pharmacy [facility] * Preadmission Environment Home with Family * ADLs Partial Dependent * Partial ADLs (Assistance needed) Ambulation Bathing Dressing Eating Medication Management Toileting Transfers * Other Equipment HOME 02 - [facility] ELECTRIC W/C, SHOWER CHAIR -(CAN'T FIT IN SHOWER) * List name and contact numbers for known caregivers / representatives who currently or will assist patient after discharge: JAZMINE MACIEL- SPOUSE- [phone] * Verbal permission to speak to the caregivers and representatives has been obtained from the patient. N/A * Community resources currently utilized None * Additional services required to return to the preadmission environment? No * Can the patient safely return to the preadmission environment? Yes * Has this patient been hospitalized within the prior 30 days at any hospital? No Coverage Notice Reviewer: [id number] Irma Choudhury Notice Issued Date-Time: 08/05/2019 9:50 Notice Type: Patient Choice Letter Notice Delivered To: Family Member Relationship to Patient: Spouse Vacuum Form Operator Name: Jazmine Delivery Method: HAND - Hand Delivered Rosa Isela Days: Prior Verbal Notification: Recipient Understood Notice: Yes Recipient Signature: Yes Med Rec Note Co-signed by Attending: Coverage Notice Comment: [facility] ([facility]) [facility] ([facility]) Reviewer: [id number] Irma Valentine Notice Issued Date-Time: 08/11/2019 8:28 Notice Type: Patient Choice Letter Notice Delivered To: Family Member Relationship to Patient: Spouse Vacuum Form Operator Name: Jazmine Maciel Delivery Method: HAND - Hand Delivered Rosa Isela Days: Prior Verbal Notification: Recipient Understood Notice: Yes Recipient Signature: Yes Med Rec Note Co-signed by Attending: Coverage Notice Comment: [facility] Last DP export: 08/12/19 11:10 a Patient Name: DALLAS MACIEL Page [id number] at 1553 All edits/amendments must be made on the electronic document DICTATION DATE: 08/12/191552 TOUR LEADER: GARRETT 08/12/191552 RPT#: [id number] DC DATE: STATUS: ADM IN [facility] [address] [place] [address] END OF REPORT
[2019-08-12 16:26] VITALS: BP 108/60
--- NOTE | 2019-08-12 16:31 | MORECARE ---
CASE MANAGEMENT DISCHARGE SUMMARY PATIENT: DALLAS MACIEL UNIT: [id number] ADM DATE: 07/25/19 AGE: 68 : 51 SEX: M ROOM/BED: D.2201 AUTHOR: CED PASCUAL PHYSICIAN: REFERRING PHYSICIAN: VIOLETA CARVALHO MD DATE OF SERVICE: 08/12/19 Discharge Plan Patient Name: DALLAS MACIEL Facility: [facility]:[place] : 1950 Planned Disposition: Home Anticipated Discharge Date: Discharge Date: Expected LOS: Initial Reviewer: [id number] Initial Review Date: 07/27/2019 Generated: 08/12/19 5:31 pm Comments DCP- Discharge Planning Updated by [email or web address]: Danelle Fang on 08/12/19 3:[address] Patient Name: DALLAS MACIEL Encounter No: [id number] : 1950 Primary Insurance: [facility] MEDICARE SOLUTIONS Food Inspector: :Danelle Fang UR Note: [facility] THE DOC TO DOC IS DONE WITH THEIR DR. GOODWIN. DR. CARVALHO TO DO THE DOC TO DOC. ANTICIPATE DC TO [facility] SOON. Danelle Fang DCP- Discharge Planning Updated by [id number]: Danelle Fang on 08/11/19 2:[address] Patient Name: DALLAS MACIEL Admission Status: Elective Accout number: [id number] Admission Date: 07-25-2019 : 1950 Admission Diagnosis: Attending: VIOLETA CARVALHO Current LOS: 17 Anticipated DC Date: Planned Disposition: Home Primary Insurance: [facility] MEDICARE SOLUTIONS Discharge Planning Comments: CM SPOKE WITH [facility] AND THEY WILL NOT ACCEPT PATIENT. I HAVE THE TRANSFER BACK AGREEMENT AND HAVE CALL [facility] IN [place] AT [phone], SPOKE TO EDISON JETT AND WAITING TRIPE FINISHER BACK REGARDING TRANSFER. Food Inspector: Danelle Fang Appended by Danelle Fang on 08/11/2019 14:31 MARKETING COMMUNICATIONS MANAGER: SPOKE WITH MASSIMO WESLEY AT [facility] AND DR. CARVALHO TO CALL DR. NUNEZ AT [facility]. [employer] CALLED AND STATES WAITING ON AUTH FOR TRILOGY. WAITING FOR CALL BACKS AT THIS TIME. Appended by Danelle Fang on 08/11/2019 15:15 MARKETING COMMUNICATIONS MANAGER: AFTER SPEAKING WITH DR. CARVALHO, I HAVE CONTACTED TASHA AT [facility] [phone] FOR PATIENT REFERRAL, I HAVE FAXED DOCUMENTS TO THEM AT [phone]. WAITING TRIPE FINISHER BACK, TASHA STATES WILL HAVE TO GET AUTH AND ANTICIPATING TOMORROW ADMIT TO [facility] IF ALL IS APPROVED. CM TO FOLLOW. DCP- Discharge Planning Updated by [id number]: Asuncion Valentine on 08/11/19 7:[address] Patient's states she would like a referral to [facility] in [place]. [facility] and called and left a voice mail with Katie Parks to return my call. CM will continue to follow and assist with discharge planning/needs. DCP- Discharge Planning Updated by [id number]: Kaylie Smith on 08/10/19 3:[address] Patient's gave CM number for the provider line at [facility] [phone]. She stated when she spoke to the insurance company they told her if the MD would call the provider line it may speed up the process on getting authorization for the Trilogy. CM did not relay this message at this time to the MD due to it being close to 1700 and the insurance company is closing. Kaylie Smith RN, [facility] DCP- Discharge Planning Updated by [id number]: Kaylie Smith on 08/10/19 3:[address] [facility] - can't admit patient on bipap and does not have a contract [facility] for the trilogy so they cant accept. [facility] Inpatient Rehab cant accommodate patient due to his bariatric size. Met with patient, his , and daughter to discuss the above. She stated they live close to [place] so they will agree to a retirement facility in [place] or [place] that can accommodate his size and respiratory issues. Cm did not make calls to any facilities today. Will work on this tomorrow morning. Kaylie Smith RN,[facility] DCP- Discharge Planning Updated by [id number]: Kaylie Smith on 08/10/19 12:[address] Spoke to Chelly with [facility] rehab informing her of the delay we are having waiting on auth for Trilogy. She stated she would inform her audience coordinator to make them aware of the delay so they can make sure their auth does not . CM requested they let me know if they need additional information faxed to them. Kaylie Smith RN, [facility] DCP- Discharge Planning Updated by [id number]: Genesis Gascaken on 08/09/19 2:[address] PATIENT HAS BEEN APPROVED FOR [facility], WE HAVE TO GET TRILIOGY SET UP PRIOR TO DISCHARGE. DCP- Discharge Planning Updated by [id number]: Genesis Kei on 08/08/19 6:[address] sent update clinicals to [facility] for [facility]iliogy DCP- Discharge Planning Updated by [id number]: Genesis Choudhury on 08/05/19 2:[address] I spoke with the patient's and she stated that she has been in contact with [facility] ([facility]) inpatient rehab and she would like her to go there. I will start that process, he is a managed medicare so he will need auth. He will need a Triliogy if he get accepted there, so spoke with about what DME she would like to use. She was not real happy with [facility]. [facility]AN with [facility] for Triliogy. She was ok to keep [facility] ([facility]) I have sent the referral to [place] with [facility]. I will wait for Dr Roberts's documentation to send to [facility] to start this auth process. CM till continue to follow to assist. DCP- Discharge Planning Updated by [id number]: Diane Wilson on 07/27/19 7:[address] Patient Name: DALLAS MACIEL Admission Status: Elective Accout number: [id number] Admission Date: 07-25-2019 : 1950 Admission Diagnosis: Attending: VIOLETA CARVALHO Current LOS: 2 Anticipated DC Date: Planned Disposition: Home Primary Insurance: [facility] MEDICARE SOLUTIONS Discharge Planning Comments: CM met with patient and Jazmine at bedside after explaining CM role and obtaining verbal consent. Patient recently extubated today would only answer questions by nodding. Patient lives at home with his Jazmine where he is partially dependent with his care and plans to return there upon discharge. Patient feels this would be a safe discharge. CM discussed availability / needs of home health and medical equipment. Jazmine states that patient has Home 02 with [facility]. Jazmine did mention that it is getting harder to take care of him at home. CM spoke to her regarding physical therapy evaluation and the possibility of rehab v/s HH. Patient denies any discharge needs at this time. CM will continue to follow and assist as needed with discharge planning / needs. Food Inspector: Diane Wilson DCPIA - Discharge Planning Initial Assessment Updated by [id number]: Diane Wilson on 07/27/19 7:05 pm * How many steps to enter\exit or inside your home? ramp * PCP [facility] * Pharmacy [facility] * Preadmission Environment Home with Family * ADLs Partial Dependent * Partial ADLs (Assistance needed) Ambulation Bathing Dressing Eating Medication Management Toileting Transfers * Other Equipment HOME 02 - [facility] ELECTRIC W/C, SHOWER CHAIR -(CAN'T FIT IN SHOWER) * List name and contact numbers for known caregivers / representatives who currently or will assist patient after discharge: JAZMINE MACIEL- SPOUSE- [phone] * Verbal permission to speak to the caregivers and representatives has been obtained from the patient. N/A * Community resources currently utilized None * Additional services required to return to the preadmission environment? No * Can the patient safely return to the preadmission environment? Yes * Has this patient been hospitalized within the prior 30 days at any hospital? No Coverage Notice Reviewer: [id number] - Genesis Choudhury Notice Issued Date-Time: 08/05/2019 9:50 Notice Type: Patient Choice Letter Notice Delivered To: Family Member Relationship to Patient: Spouse Manager Content Name: Jazmine Delivery Method: HAND - Hand Delivered Rosa Isela Days: Prior Verbal Notification: Recipient Understood Notice: Yes Recipient Signature: Yes Med Rec Note Co-signed by Attending: Coverage Notice Comment: [facility] ([facility]) [facility] ([facility]) Reviewer: [id number] - Asuncion Valentine Notice Issued Date-Time: 08/11/2019 8:28 Notice Type: Patient Choice Letter Notice Delivered To: Family Member Relationship to Patient: Spouse Manager Content Name: Jazmine Maciel Delivery Method: HAND - Hand Delivered Rosa Isela Days: Prior Verbal Notification: Recipient Understood Notice: Yes Recipient Signature: Yes Med Rec Note Co-signed by Attending: Coverage Notice Comment: [facility] Last DP export: 08/12/19 2:53 p Patient Name: DALLAS MACIEL Page [id number] at 1631 All edits/amendments must be made on the electronic document DICTATION DATE: 08/12/19 1631 STRAIGHTENING ROLL OPERATOR: GARRETT 08/12/19 1631 RPT#: [id number] DC DATE: STATUS: ADM IN [facility] [address] [place] [address] END OF REPORT
--- NOTE | 2019-08-12 16:39 | MORECARE ---
CASE MANAGEMENT DISCHARGE SUMMARY PATIENT: DALLAS MACIEL UNIT: [id number] ADM DATE: 07/25/19 AGE: 68 : 51 SEX: M ROOM/BED: D.2201 AUTHOR: CED PASCUAL PHYSICIAN: REFERRING PHYSICIAN: VIOLETA CARVALHO MD DATE OF SERVICE: 08/12/19 Discharge Plan Patient Name: DALLAS MACIEL Facility: [facility]:[place] : 1950 Planned Disposition: Home Anticipated Discharge Date: Discharge Date: Expected LOS: Initial Reviewer: [id number] Initial Review Date: 07/27/2019 Generated: 08/12/19 5:39 pm Comments DCP- Discharge Planning Updated by [id number]: Danelle Fang on 08/12/19 3:[address] Patient Name: DALLAS MACIEL Encounter No: [id number] : 1950 Primary Insurance: [facility] MEDIC[employer] SOLUTIONS Combination Man: :Danelle Fang UR Note: [facility] PLANS TO ACCEPT PATIENT ONCE THE DOC TO DOC IS DONE WITH THEIR DR. GOODWIN. DR. CARVALHO TO DO THE DOC TO DOC. ANTICIPATE DC TO [facility] SOON. Danelle Fang Appended by Danelle Fang on 08/12/2019 16:34 PHARMACY CLINICAL COORDINATOR: DOC TO DOC WAS DONE, PATIENT MAY DC TO [facility] THURSDAY BY AMBULANCE. RN TO CALL REPORT TO [phone]. DCP- Discharge Planning Updated by [id number]: Danelle Fang on 08/11/19 2:[address] Patient Name: DALLAS MACIEL Admission Status: Elective Accout number: [id number] Admission Date: 07-25-2019 : 1950 Admission Diagnosis: Attending: VIOLETA CARVALHO Current LOS: 17 Anticipated DC Date: Planned Disposition: Home Primary Insurance: [facility] [employer] SOLUTIONS Discharge Planning Comments: CM SPOKE WITH [facility] AND THEY WILL NOT ACCEPT PATIENT. I HAVE THE TRANSFER BACK AGREEMENT AND HAVE CALL [facility] IN [place] AT [phone], SPOKE TO EDISON JETT AND WAITING LENS GENERATOR BACK REGARDING TRANSFER. Combination Man: Danelle Fang Appended by Danelle Fang on 08/11/2019 14:31 PHARMACY CLINICAL COORDINATOR: SPOKE WITH MASSIMO WESLEY AT [facility] AND DR. CARVALHO TO CALL DR. NUNEZ AT [facility]. [employer]ED CALLED AND STATES WAITING ON AUTH FOR TRILOGY. WAITING FOR CALL BACKS AT THIS TIME. Appended by Danelle Fang on 08/11/2019 15:15 PHARMACY CLINICAL COORDINATOR: AFTER SPEAKING WITH DR. CARVALHO, I HAVE CONTACTED TASHA AT [facility] [phone] FOR PATIENT REFERRAL, I HAVE FAXED DOCUMENTS TO THEM AT [phone]. WAITING LENS GENERATOR BACK, TASHA STATES WILL HAVE TO GET AUTH AND ANTICIPATING TOMORROW ADMIT TO SWING IF ALL IS APPROVED. CM TO FOLLOW. DCP- Discharge Planning Updated by [id number]: Asuncion Valentine on 08/11/19 7:[address] Patient's states she would like a referral to [facility] in [place]. I faxed clinical to [facility] and called and left a voice mail with Katie Parks to return my call. CM will continue to follow and assist with discharge planning/needs. DCP- Discharge Planning Updated by [id number]: Kaylie Smith on 08/10/19 3:[address] Patient's gave CM number for the provider line at [facility] [phone]. She stated when she spoke to the insurance company they told her if the MD would call the provider line it may speed up the process on getting authorization for the Trilogy. CM did not relay this message at this time to the MD due to it being close to 1700 and the insurance company is closing. Kaylie Smith RN, CCM DCP- Discharge Planning Updated by [id number]: Kaylie Smith on 08/10/19 3:33 pm [facility] - can't admit patient on bipap and does not have a contract [facility] for the trilogy so they cant accept. [facility] Inpatient Rehab cant accommodate patient due to his bariatric size. Met with patient, his , and daughter to discuss the above. She stated they live close to [place] so they will agree to a halfway facility in [place] or [place] that can accommodate his size and respiratory issues. Cm did not make calls to any facilities today. Will work on this tomorrow morning. Kaylie Smith RN,CCM DCP- Discharge Planning Updated by [id number]: Kaylie Smith on 08/10/19 12:[address] [facility] of the delay we are having waiting on auth for Trilogy. She stated she would inform her online program coordinator to make them aware of the delay so they can make sure their auth does not . CM requested they let me know if they need additional information faxed to them. Kaylie Smith RN, [facility] DCP- Discharge Planning Updated by [id number]: Genesis Choudhury on 08/09/19 2:[address] PATIENT HAS BEEN APPROVED FOR [facility], WE HAVE TO GET TRILIOGY SET UP PRIOR TO DISCHARGE. DCP- Discharge Planning Updated by [id number]: Genesis Choudhury on 08/08/19 6:[address] sent update clinicals to [facility] for Triliogy DCP- Discharge Planning Updated by [id number]: Genesis Choudhury on 08/05/19 2:[address] I spoke with the patient's and she stated that she has been in contact with [facility]) inpatient rehab and she would like her to go there. I will start that process, he is a managed medicare so he will need auth. He will need a Triliogy if he get accepted there, so spoke with about what DME she would like to use. She was not real happy with [facility]. SUMAN with [facility] for Triliogy. She was ok to keep [facility] ([facility]) I have sent the referral to [place] with [facility]. I will wait for Dr Roberts's documentation to send to [facility] to start this auth process. CM till continue to follow to assist. DCP- Discharge Planning Updated by [id number]: Diane Wilson on 07/27/19 7:[address] Patient Name: DALLAS MACIEL Admission Status: Elective Accout number: [id number] Admission Date: 07-25-2019 : 1950 Admission Diagnosis: Attending: VIOLETA CARVALHO Current LOS: 2 Anticipated DC Date: Planned Disposition: Home Primary Insurance: [facility] [employer] SOLUTIONS Discharge Planning Comments: CM met with patient and Jazmine at bedside after explaining CM role and obtaining verbal consent. Patient recently extubated today would only answer questions by nodding. Patient lives at home with his Jazmine where he is partially dependent with his care and plans to return there upon discharge. Patient feels this would be a safe discharge. CM discussed availability / needs of home health and medical equipment. Jazmine states that patient has Home 02 with [facility]. Jazmine did mention that it is getting harder to take care of him at home. CM spoke to her regarding physical therapy evaluation and the possibility of rehab v/s HH. Patient denies any discharge needs at this time. CM will continue to follow and assist as needed with discharge planning / needs. Combination Man: Diane Wilson DCJUDIA - Discharge Planning Initial Assessment Updated by [id number]: Diane Wilson on 07/27/19 7:05 pm * How many steps to enter\exit or inside your home? ramp * PCP Dexter John * [facility]acy [facility] * Preadmission Environment Home with Family * ADLs Partial Dependent * Partial ADLs (Assistance needed) Ambulation Bathing Dressing Eating Medication Management Toileting Transfers * Other Equipment HOME 02 - [facility] ELECTRIC W/C, SHOWER CHAIR -(CAN'T FIT IN SHOWER) * List name and contact numbers for known caregivers / representatives who currently or will assist patient after discharge: JAZMINE MACIEL- SPOUSE- [phone] * Verbal permission to speak to the caregivers and representatives has been obtained from the patient. N/A * Community resources currently utilized None * Additional services required to return to the preadmission environment? No * Can the patient safely return to the preadmission environment? Yes * Has this patient been hospitalized within the prior 30 days at any hospital? No Coverage Notice Reviewer: [id number] - Genesis Choudhury Notice Issued Date-Time: 08/05/2019 9:50 Notice Type: Patient Choice Letter Notice Delivered To: Family Member Relationship to Patient: Spouse Contact Agent Name: Jazmine Delivery Method: HAND - Hand Delivered Rosa Isela Days: Prior Verbal Notification: Recipient Understood Notice: Yes Recipient Signature: Yes Med Rec Note Co-signed by Attending: Coverage Notice Comment: [facility] ([facility]) Triliogy ([facility]) Reviewer: [id number] - Asuncion Valentine Notice Issued Date-Time: 08/11/2019 8:28 Notice Type: Patient Choice Letter Notice Delivered To: Family Member Relationship to Patient: Spouse Contact Agent Name: Jazmine Maciel Delivery Method: HAND - Hand Delivered Rosa Isela Days: Prior Verbal Notification: Recipient Understood Notice: Yes Recipient Signature: Yes Med Rec Note Co-signed by Attending: Coverage Notice Comment: Daya Last DP export: 08/12/19 3:31 p Patient Name: DALLAS MACIEL Page [id number] at 1639 All edits/amendments must be made on the electronic document DICTATION DATE: 08/12/19 163 GARMENT FORM ASSEMBLER: GARRETT 08/12/19 1639 RPT#: [id number] DC DATE: STATUS: ADM IN [facility] [address] [place] [address] END OF REPORT
--- NOTE | 2019-08-12 17:47 | NUR ---
IN ROOM. CL IN REACH. NO NEEDS AT THIS TIME. WCTM
--- NOTE | 2019-08-12 20:00 | NUR ---
ALERT RESTING IN BED, RESP UNLABORED O2 IN USE VIA N/C, DENIES PAIN OR NEEDS AT THIS TIME, SEE SHIFT ASSESSMENT, CALL LIGHT IN REACH, AT BEDSIDE
[2019-08-12 21:02] VITALS: BP 134/96
[2019-08-13 01:20] VITALS: BP 150/56
[2019-08-13 05:52] VITALS: BP 156/56
[2019-08-13 06:34] LABS: CALC OSMOLALITY 284 mosm/kg (275-300); CALCIUM 8.5 mg/dL (8.5-10.1); CARBON DIOXIDE 33.2 mmol/L (21.0-32.0); CHLORIDE - SERUM 103 mmol/L (98-107); CREATININE - SERUM 0.9 mg/dL (0.6-1.3); GLUCOSE 118 mg/dL (74-106); SODIUM 141 mmol/L (136-145); UREA NITROGEN 20 mg/dL (7-18); eGFR NON AFRICAN AMERICAN 89 mL/min (90-120)
[2019-08-13 06:35] LABS: POTASSIUM - SERUM 4.5 mmol/L (3.5-5.1)
[2019-08-13 06:47] LABS: HEMATOCRIT 47.8 % (42.0-54.0); MCH 29.9 pg (26.0-34.0); MCHC 31.4 g/dL (31.0-37.0); MCV 95.4 fL (80.0-100.0); MEAN PLATELET VOLUME 12.2 fL (7.4-10.4); RBC 5.01 10x6/uL (4.20-6.10); RDW 14.6 % (11.5-14.5); WBC 10.1 10x3/uL (4.8-10.8)
[2019-08-13 06:49] LABS: PLATELET COUNT 114 10x3/uL (130-400)
[2019-08-13 07:18] LABS: EOSINOPHILS 6 % (0-7); LYMPHOCYTES 20 % (15-50); MONOCYTES 9 % (2-11); NEUTROPHILS 65 % (40-80); PLATELET ESTIMATE DECREASED
[2019-08-13 08:51] VITALS: BP 155/87
--- NOTE | 2019-08-13 10:11 | NUR ---
NOTIFIED DR HAQ OF PT'S DISCHARGE AND HE IS AGREEABLE TO D/C.
--- NOTE | 2019-08-13 11:01 | NUR ---
PT ALERT X 4. BREATH SOUNDS CLEAR BILAT, 3L O2 PER NC. NO IV ACCESS. PT REPORTING NO PAIN AT THIS TIME. SKIN TO LEGS DRY AND REDDENED. FAMILY AT BEDSIDE. BED LOW, CALL LIGHT IN REACH. NO OTHER NEEDS AT THIS TIME.
[2019-08-13 12:40] VITALS: BP 140/65
--- NOTE | 2019-08-13 14:18 | NUR ---
DISCHARGE PAPERWORK SIGNED, ALL QUESTIONS ANSWERED. PT SENT OUT ON STRETCHER VIA [employer]. REPORT CALLED TO JACQUE AT [facility] IN [place].
--- NOTE | 2019-08-13 15:47 | MORECARE ---
CASE MANAGEMENT DISCHARGE SUMMARY PATIENT: DALLAS MACIEL UNIT: [id number] ADM DATE: 07/25/19 AGE: 68 : 51 SEX: M ROOM/BED: D.2201 AUTHOR: CED PASCUAL PHYSICIAN: REFERRING PHYSICIAN: VIOLETA CARVALHO MD DATE OF SERVICE: 08/13/19 Discharge Plan Patient Name: DALLAS MACIEL Facility: [facility]:[place] : 1950 Planned Disposition: Home Anticipated Discharge Date: Discharge Date: 08/13/2019 Expected LOS: Initial Reviewer: [id number] Initial Review Date: 07/27/2019 Generated: 08/13/19 4:47 pm Comments DCP- Discharge Planning Updated by [id number]: Danelle Fang on 08/12/19 3:[address] Patient Name: DALLAS MACIEL Encounter No: [id number] : 1950 Primary Insurance: [facility] MEDICARE SOLUTIONS Huller Operator: :Danelle Fang UR Note: [facility] PLANS TO ACCEPT PATIENT ONCE THE DOC TO DOC IS DONE WITH THEIR DR. GOODWIN. DR. CARVALHO TO DO THE DOC TO DOC. ANTICIPATE DC TO [facility] SOON. Danelle Fang Appended by Danelle Fang on 08/12/2019 16:34 HOT STRIP FINISHER: DOC TO DOC WAS DONE, PATIENT MAY DC TO [facility] THURSDAY BY AMBULANCE. RN TO CALL REPORT TO [phone]. DCP- Discharge Planning Updated by [id number]: Danelle Fang on 08/11/19 2:[address] Patient Name: DALLAS MACILE Admission Status: Elective Accout number: [id number] Admission Date: 07-25-2019 : 1950 Admission Diagnosis: Attending: VIOLETA CARVALHO Current LOS: 17 Anticipated DC Date: Planned Disposition: Home Primary Insurance: [facility] [employer] SOLUTIONS Discharge Planning Comments: CM SPOKE WITH [facility] AND THEY WILL NOT ACCEPT PATIENT. I HAVE THE TRANSFER BACK AGREEMENT AND HAVE CALL [facility] IN [place] AT [phone], SPOKE TO EDISON JETT AND WAITING PLANT ATTENDANT OR ASSISTANT OPERATOR BACK REGARDING TRANSFER. Huller Operator: Danelle Fang Appended by Danelle Fang on 08/11/2019 14:31 HOT STRIP FINISHER: SPOKE WITH MASSIMO WESLEY AT [facility] AND DR. CARVALHO TO CALL DR. NUNEZ AT [facility]. VIEMED CALLED AND STATES WAITING ON AUTH FOR TRILOGY. WAITING FOR CALL BACKS AT THIS TIME. Appended by Danelle Fang on 08/11/2019 15:15 HOT STRIP FINISHER: AFTER SPEAKING WITH DR. CARVALHO, I HAVE CONTACTED TASHA AT [facility] [phone] FOR PATIENT REFERRAL, I HAVE FAXED DOCUMENTS TO THEM AT [phone]. WAITING PLANT ATTENDANT OR ASSISTANT OPERATOR BACK, TASHA STATES WILL HAVE TO GET AUTH AND ANTICIPATING TOMORROW ADMIT TO SWING IF ALL IS APPROVED. CM TO FOLLOW. DCP- Discharge Planning Updated by [id number]: Asuncion Valentine on 08/11/19 7:[address] Patient's states she would like a referral to [facility] in [place]. [facility] and called and left a voice mail with Katie Parks to return my call. CM will continue to follow and assist with discharge planning/needs. DCP- Discharge Planning Updated by [id number]: Kaylie Smith on 08/10/19 3:[address] Patient's gave CM number for the provider line at [facility] [phone]. She stated when she spoke to the insurance company they told her if the MD would call the provider line it may speed up the process on getting authorization for the Trilogy. CM did not relay this message at this time to the MD due to it being close to 1700 and the insurance company is closing. Kaylie Smith RN, [facility] DCP- Discharge Planning Updated by [id number]: Kaylie Smith on 08/10/19 3:[address] [facility] - can't admit patient on bipap and does not have a contract [facility] for the trilogy so they cant accept. [facility] Inpatient Rehab cant accommodate patient due to his bariatric size. Met with patient, his , and daughter to discuss the above. She stated they live close to [place] so they will agree to a group home facility in [place] or [place] that can accommodate his size and respiratory issues. Cm did not make calls to any facilities today. Will work on this tomorrow morning. Kaylie Smith RN,CCM DCP- Discharge Planning Updated by [id number]: Kaylie Smith on 08/10/19 12:[address] [facility] of the delay we are having waiting on auth for Trilogy. She stated she would inform her admissions consultant to make them aware of the delay so they can make sure their auth does not . CM requested they let me know if they need additional information faxed to them. Kaylie Smith RN, [facility] DCP- Discharge Planning Updated by [id number]: Genesis Choudhury on 08/09/19 2:[address] PATIENT HAS BEEN APPROVED FOR [facility], WE HAVE TO GET TRILIOGY SET UP PRIOR TO DISCHARGE. DCP- Discharge Planning Updated by [email or web address]: Genesis Choudhury on 08/08/19 6:[address] sent update clinicals to [facility] for Triliogy DCP- Discharge Planning Updated by [id number]: Genesis Choudhury on 08/05/19 2:[address] I spoke with the patient's and she stated that she has been in contact with [facility]) inpatient rehab and she would like her to go there. I will start that process, he is a managed medicare so he will need auth. He will need a Triliogy if he get accepted there, so spoke with about what DME she would like to use. She was not real happy with [facility]. SUMAN with [facility] for Triliogy. She was ok to keep [facility] ([facility]) I have sent the referral to [place]ine with [facility]. I will wait for Dr Roberts's documentation to send to [facility] to start this auth process. CM till continue to follow to assist. DCP- Discharge Planning Updated by [id number]: Diane Wilson on 07/27/19 7:[address] Patient Name: DALLAS MACIEL Admission Status: Elective Accout number: [id number] Admission Date: 07-25-2019 : 1950 Admission Diagnosis: Attending: VIOLETA CARVALHO Current LOS: 2 Anticipated DC Date: Planned Disposition: Home Primary Insurance: [facility] [employer] [employer] Discharge Planning Comments: CM met with patient and Jazmine at bedside after explaining CM role and obtaining verbal consent. Patient recently extubated today would only answer questions by nodding. Patient lives at home with his Jazmine where he is partially dependent with his care and plans to return there upon discharge. Patient feels this would be a safe discharge. CM discussed availability / needs of home health and medical equipment. Jazmine states that patient has Home 02 with [facility]. Jazmine did mention that it is getting harder to take care of him at home. CM spoke to her regarding physical therapy evaluation and the possibility of rehab v/s HH. Patient denies any discharge needs at this time. CM will continue to follow and assist as needed with discharge planning / needs. Huller Operator: Diane Wilson DCPIA - Discharge Planning Initial Assessment Updated by [id number]: Diane Wilson on 07/27/19 7:05 pm * How many steps to enter\exit or inside your home? ramp * PCP Dexter John * Pharmacy [facility] * Preadmission Environment Home with Family * ADLs Partial Dependent * Partial ADLs (Assistance needed) Ambulation Bathing Dressing Eating Medication Management Toileting Transfers * Other Equipment HOME 02 - [facility] ELECTRIC W/C, SHOWER CHAIR -(CAN'T FIT IN SHOWER) * List name and contact numbers for known caregivers / representatives who currently or will assist patient after discharge: JAZMINE MACIEL- SPOUSE- [phone] * Verbal permission to speak to the caregivers and representatives has been obtained from the patient. N/A * Community resources currently utilized None * Additional services required to return to the preadmission environment? No * Can the patient safely return to the preadmission environment? Yes * Has this patient been hospitalized within the prior 30 days at any hospital? No Coverage Notice Reviewer: [id number] - Genesis Choudhury Notice Issued Date-Time: 08/05/2019 9:50 Notice Type: Patient Choice Letter Notice Delivered To: Family Member Relationship to Patient: Spouse [employer] Professional Name: Jazmine Delivery Method: HAND - Hand Delivered Rosa Isela Days: Prior Verbal Notification: Recipient Understood Notice: Yes Recipient Signature: Yes Med Rec Note Co-signed by Attending: Coverage Notice Comment: [facility] ([facility]) Triliogy ([facility]) Reviewer: [id number] - Asuncion Valentine Notice Issued Date-Time: 08/11/2019 8:28 Notice Type: Patient Choice Letter Notice Delivered To: Family Member Relationship to Patient: Spouse [employer] Professional Name: Jazmine Maciel Delivery Method: HAND - Hand Delivered Rosa Isela Days: Prior Verbal Notification: Recipient Understood Notice: Yes Recipient Signature: Yes Med Rec Note Co-signed by Attending: Coverage Notice Comment: Daya Reviewer: [id number] Irma Fang Notice Issued Date-Time: 08/13/2019 9:38 Notice Type: IM Discharge Notice Notice Delivered To: Patient Relationship to Patient: [employer]eles[employer] Professional Name: Delivery Method: HAND - Hand Delivered Rosa Isela Days: Prior Verbal Notification: Recipient Understood Notice: Yes Recipient Signature: Yes Med Rec Note Co-signed by Attending: Coverage Notice Comment: Last DP export: 08/12/19 3:39 p Patient Name: DALLAS MACIEL Page [id number] at 1547 All edits/amendments must be made on the electronic document DICTATION DATE: 08/13/19 1546 FRONT DESK ASSISTANT: GARRETT 08/13/19 1546 RPT#: [id number] DC DATE:08/13/19 STATUS: DIS IN [facility] [address] [place] [address] END OF REPORT
[2019-08-23 07:13] LABS: FUNGUS MYCOLOGY CULTURE Final report (())
[2019-08-23 07:13] LABS: FUNGUS MYCOLOGY CULTURE Final report (())
== END 2019-08-13 14:39 | disposition short-term general hospital (02) | DRG 208 ==
LOC: D.ICU 18:01 → D.MS 07-28 14:46 → D.SDCHOLD 08-03 15:13 → D.MS 08-03 15:13
PROVIDERS: Family Medicine; Internal Medicine; Internal Medicine Pulmonary Disease; ADMIT Internal Medicine Nephrology; ATTEND Internal Medicine Nephrology
PROC: 5A1945Z Respiratory Ventilation, 24-96 Consecutive Hours (ICD-10-PCS; principal; 2019-07-25)
PROC: 0B9J8ZX Drainage of Left Lower Lung Lobe, Via Natural or Artificial Opening Endoscopic, Diagnostic (ICD-10-PCS; 2019-07-26)
PROC: 0B9F8ZX Drainage of Right Lower Lung Lobe, Via Natural or Artificial Opening Endoscopic, Diagnostic (ICD-10-PCS; 2019-07-26)
DX: J18.9 Pneumonia, unspecified organism (principal); J96.01 Acute respiratory failure with hypoxia; G92 Toxic encephalopathy; I50.33 Acute on chronic diastolic (congestive) heart failure; J96.22 Acute and chronic respiratory failure with hypercapnia; Z68.44 Body mass index [BMI] 60.0-69.9, adult; N17.9 Acute kidney failure, unspecified; E87.1 Hypo-osmolality and hyponatremia; J44.1 Chronic obstructive pulmonary disease with (acute) exacerbation; E66.01 Morbid (severe) obesity due to excess calories; E78.5 Hyperlipidemia, unspecified; D69.6 Thrombocytopenia, unspecified; E83.39 Other disorders of phosphorus metabolism; H40.9 Unspecified glaucoma; I11.0 Hypertensive heart disease with heart failure; E87.6 Hypokalemia; R21 Rash and other nonspecific skin eruption; F17.200 Nicotine dependence, unspecified, uncomplicated

== ENCOUNTER → 2020-02-20 07:43 | Outpatient (CLI) | payer MEDICARE ==
[2019-07-26 08:50] VITALS: BMI 62.6
[~2020-02-20 07:43] MED LIST: ALBUTEROL2.5 MG/3 M INH; BETAGAN 0.5% OPH5 ML EACH EYE; COMBIGAN OPHT DR5 ML EACH EYE; IPRAT-ALBUT 0.5-3 ML UPD; LASIX40 MG PO; LEVAQUIN750 MG PO; LOSARTAN/HCT TAB 100 PO; MUCINEX DM ER1 EAC1 PO; NEURONTIN 300300 MG PO; TOPROL XL25 MG PO; TRUSOPT 2 % OPT10 ML OP; XALATAN 0.0052.5 ML EACH EYE; ZOCOR20 MG PO
== END | disposition home or self-care (01) ==
LOC: D.RT 12-23 10:30 → D.LAB 12-23 11:00 → D.RT 01-23 09:30
PROVIDERS: ATTEND Internal Medicine Pulmonary Disease
DX: R06.09 Other forms of dyspnea (principal)